=== PATIENT | female | born 1945 | race African-American/Black ===

== ENCOUNTER → 2017-12-14 | Outpatient (CLI) | payer MEDICARE | END | disposition home or self-care (01) | LOC: ECHO 08:21 | DX: I27.0 Primary pulmonary hypertension (principal); I36.1 Nonrheumatic tricuspid (valve) insufficiency; I37.1 Nonrheumatic pulmonary valve insufficiency | CPT/HCPCS: 93306 ==

== ENCOUNTER 2019-03-13 03:30 | Emergency (ER) | payer MEDICARE ==
[~2019-03-13] VITALS: Ht 154.9 cm; Wt 52.6 kg
[~2019-03-13 03:30] MED LIST: AMLO10TA8 PO; CHOL200074 PO; CITA10TA4 PO; DILT180C4 PO; DILT30TA26 PO; DILT60TA PO; DONE10TA7 PO; FLUT250D INH; GLUC-46 PO; IPRA3AMP29 NEB; MEMA28CA PO; OMEG300C PO; PRAV40TA2 PO; PRED-220 PO
[2019-03-13 04:36] LABS: BASO # 0.1 x10^3/uL (0.0-0.2); BASO % 1 % (0-3); EOS # 0.4 x10^3/uL (0.0-0.7); EOS % 9 % (0-3); HEMATOCRIT 41.8 % (36.0-47.0); HEMOGLOBIN 13.5 g/dL (12.0-15.5); LYMPH # 2.2 x10^3/uL (1.0-4.8); LYMPH % 48 % (24-48); MEAN CORPUSCULAR HEMOGLOBIN 26 pg (25-35); MEAN CORPUSCULAR HGB CONC 32 g/dL (31-37); MEAN CORPUSCULAR VOLUME 80 fL (79-100); MONO # 0.4 x10^3/uL (0.0-1.1); MONO % 10 % (0-9); NEUT # 1.5 x10^3uL (1.8-7.7); NEUT % 32 % (31-73); PLATELET COUNT 301 x10^3/uL (140-400); RED BLOOD COUNT 5.21 x10^6/uL (3.50-5.40); RED CELL DISTRIBUTION WIDTH 14.8 % (11.5-14.5); WHITE BLOOD COUNT 4.5 x10^3/uL (4.0-11.0)
--- NOTE | 2019-03-13 04:37 | PHYS DOC ---
Past Medical History Past Medical History: Anxiety, COPD, Depression, High Cholesterol Additional Past Medical Histor: ALZHEIMERS Past Surgical History: No Surgical History Additional Past Surgical Histo: UNKNOWN Alcohol Use: None Drug Use: None Adult General Chief Complaint Chief Complaint: COUGH HPI HPI Patient is a 73 year old female with history of COPD, Alzheimer's who presents with productive cough increased shortness of breath past week. Blood members report increased albuterol use. Fever chills, nausea vomiting or sweats. No leg pain and swelling. No other acute symptoms or complaints. History is limited due to patient's memory loss. Additional history per family members.[] Review of Systems Review of Systems Constitutional: Denies fever or chills [] Eyes: Denies change in visual acuity, redness, or eye pain [] HENT: Denies nasal congestion or sore throat [] Respiratory: Denies cough or shortness of breath [] Cardiovascular: No additional information not addressed in HPI [] GI: Denies abdominal pain, nausea, vomiting, bloody stools or diarrhea [] : Denies dysuria or hematuria [] Musculoskeletal: Denies back pain or joint pain [] Integument: Denies rash or skin lesions [] Neurologic: Denies headache, focal weakness or sensory changes [] Endocrine: Denies polyuria or polydipsia [] All other systems were reviewed and found to be within normal limits, except as documented in this note. Current Medications Current Medications Current Medications Medications (Trade) Dose Ordered Sig/Wilemr Start Time Stop Time Status Last Admin Dose Admin Albuterol/ Ipratropium (Duoneb) 3 ml 1X ONCE 03/13/19 05:00 03/13/19 05:01 DC 03/13/19 04:32 3 ML Methylprednisolone Sodium Succinate (SOLU-Medrol 40MG VIAL) 40 mg 1X ONCE 03/13/19 05:00 03/13/19 05:01 DC 03/13/19 04:37 40 MG Allergies Allergies Allergies Coded Allergies Type Severity Reaction Last Updated Verified Sulfa (Sulfonamide Antibiotics) Allergy Intermediate 04/02/15 Yes clarithromycin Allergy Intermediate 04/02/15 Yes gatifloxacin Allergy Intermediate 04/02/15 Yes penicillin G Allergy Intermediate 04/02/15 Yes Physical Exam Physical Exam Constitutional: Well developed, well nourished, no acute distress, non-toxic appearance. [] HENT: Normocephalic, atraumatic, bilateral external ears normal, oropharynx moist, no oral exudates, nose normal. [] Eyes: PERRLA, EOMI, conjunctiva normal, no discharge. [] Neck: Normal range of motion, no tenderness, supple, no stridor. [] Cardiovascular:Heart rate regular rhythm, no murmur [] Lungs & Thorax: Respirations labored, tachypnea, diminished breath sounds b ilaterally, retractions.[] Abdomen: Bowel sounds normal, soft, no tenderness. [] Skin: Warm, dry, no erythema, no rash. [] Back: No tenderness, no CVA tenderness. [] Extremities: No tenderness, no edema. [] Neurologic: Alert and oriented to person, normal motor function, normal sensory function, no focal deficits noted. [] Psychologic: Affect normal, judgement normal, mood normal. [] Current Patient Data Vital Signs Vital Signs Date Time Temp Pulse Resp B/P (MAP) Pulse Ox O2 Delivery O2 Flow Rate FiO2 03/13/19 04:32 99 Room Air 03/13/19 04:01 98.1 74 23 131/68 (89) 98.1 Lab Values Laboratory Tests Test 03/13/19 04:27 White Blood Count 4.5 x10^3/uL (4.0-11.0) Red Blood Count 5.21 x10^6/uL (3.50-5.40) Hemoglobin 13.5 g/dL (12.0-15.5) Hematocrit 41.8 % (36.0-47.0) Mean Corpuscular Volume 80 fL (79-100) Mean Corpuscular Hemoglobin 26 pg (25-35) Mean Corpuscular Hemoglobin Concent 32 g/dL (31-37) Red Cell Distribution Width 14.8 % (11.5-14.5) H Platelet Count 301 x10^3/uL (140-400) Neutrophils (%) (Auto) 32 % (31-73) Lymphocytes (%) (Auto) 48 % (24-48) Monocytes (%) (Auto) 10 % (0-9) H Eosinophils (%) (Auto) 9 % (0-3) H Basophils (%) (Auto) 1 % (0-3) Neutrophils # (Auto) 1.5 x10^3uL (1.8-7.7) L Lymphocytes # (Auto) 2.2 x10^3/uL (1.0-4.8) Monocytes # (Auto) 0.4 x10^3/uL (0.0-1.1) Eosinophils # (Auto) 0.4 x10^3/uL (0.0-0.7) Basophils # (Auto) 0.1 x10^3/uL (0.0-0.2) Sodium Level 139 mmol/L (136-145) Potassium Level 3.7 mmol/L (3.5-5.1) Chloride Level 100 mmol/L (98-107) Carbon Dioxide Level 29 mmol/L (21-32) Anion Gap 10 (6-14) Blood Urea Nitrogen 9 mg/dL (7-20) Creatinine 1.1 mg/dL (0.6-1.0) H Estimated GFR (Cockcroft-Gault) 58.6 BUN/Creatinine Ratio 8 (6-20) Glucose Level 91 mg/dL (70-99) Lactic Acid Level 1.1 mmol/L (0.4-2.0) Calcium Level 9.7 mg/dL (8.5-10.1) Total Bilirubin 0.6 mg/dL (0.2-1.0) Aspartate Amino Transferase (AST) 29 U/L (15-37) Alanine Aminotransferase (ALT) 25 U/L (14-59) Alkaline Phosphatase 109 U/L (46-116) FY-Auj-B-Type Natriuretic Peptide 141 pg/mL (0-449) Total Protein 7.1 g/dL (6.4-8.2) Albumin 3.3 g/dL (3.4-5.0) L Albumin/Globulin Ratio 0.9 (1.0-1.7) L Laboratory Tests 03/13/19 04:27 Laboratory Tests 03/13/19 04:27 EKG EKG [EKG: reviewed CXR: Possible atypical infection per radiology report] Radiology/Procedures Radiology/Procedures [] Course & Med Decision Making Course & Med Decision Making Pertinent Labs and Imaging studies reviewed. (See chart for details) [Acute bronchitis with COPD exacerbation, being significant. Steroids, breathing treatment. Patient afebrile normal white blood cell count. Possibly atypical infection present on chest x-ray. O2 saturation greater than 95 sent, breath sounds improved with respiratory rate ] Dragon Disclaimer Dragon Disclaimer This electronic medical record was generated, in whole or in part, using a voice recognition dictation system. Departure Departure Impression: Primary Impression: Acute exacerbation of chronic obstructive pulmonary disease (COPD) Additional Impression: Acute bronchitis Disposition: 01 HOME, SELF-CARE Admitting Physician: Other Condition: Referrals: Agustin LOPEZ MD (PCP) Patient Instructions: Acute Bronchitis, [id number], Chronic Obstructive Pulmonary Disease Exacerbation, [id number] Additional Instructions: Please take antibiotics and steroids as directed and continue ALBUTEROL treatments every 4-6 hours. Follow-up with your PCP in 3-5 days for reevaluation. Return to the ED if worse. Scripts Doxycycline Hyclate (DOXYCYCLINE HYCLATE) 100 Mg Capsule 1 CAP PO BID, #20 CAP Prov: CUAUHTEMOC TIMMONS DO 03/13/19 Prednisone (PREDNISONE) 50 Mg Tablet 1 TAB PO DAILY, #6 TAB Prov: CUAUHTEMOC TIMMONS DO 03/13/19 Problem Qualifiers CUAUHTEMOC TIMMONS DO Mar 13, 2019 04:37
[2019-03-13 04:47] LABS: CALCIUM 9.7 mg/dL (8.5-10.1); CREATININE 1.1 mg/dL (0.6-1.0); GFR 58.6; POTASSIUM 3.7 mmol/L (3.5-5.1)
[2019-03-13 04:53] LABS: ALBUMIN 3.3 g/dL (3.4-5.0); ALBUMIN/GLOBULIN RATIO 0.9 (1.0-1.7); TOTAL BILIRUBIN 0.6 mg/dL (0.2-1.0); TOTAL PROTEIN 7.1 g/dL (6.4-8.2)
[2019-03-13] MEDS ORDERED: methylPREDNISolone SOD SUCC PF 40 MG/ML VIAL. IV ONE (05:00)
[2019-03-13] MEDS ORDERED: IPRATRPIUM/ALBUTEROL 0.5/2.5MG 3 ML NEBU. NEB ONE (05:00)
--- NOTE | 2019-03-13 05:48 | RAD ---
Indication:SHORT OF AIR. TECHNIQUE:Portable AP chest X-ray COMPARISON:None FINDINGS: Heart is normal in size. Prominent bilateral interstitial opacities are seen. No pneumothorax or pleural effusion. Visualized bony thorax within normal limits. S-shaped scoliosis of thoracolumbar spine. IMPRESSION: Findings suggests atypical/viral infection. Electronically signed by: Brandon Russell DO (03/13/2019 5:45 AM) [facility]
[2019-03-13] MEDS ORDERED: DOXY100C2 PO (06:12)
[2019-03-13] MEDS ORDERED: PRED50TA PO (06:12)
[2019-03-13 06:30] VITALS: BP 131/66
== END 2019-03-13 06:32 | disposition home or self-care (01) ==
LOC: ER 03:30
DX: J44.1 Chronic obstructive pulmonary disease with (acute) exacerbation (principal); J20.9 Acute bronchitis, unspecified; J44.0 Chronic obstructive pulmonary disease with (acute) lower respiratory infection; E78.00 Pure hypercholesterolemia, unspecified; G30.9 Alzheimer's disease, unspecified; F02.80 Dementia in other diseases classified elsewhere, unspecified severity, without behavioral disturbance, psychotic disturbance, mood disturbance, and anxiety; Z88.0 Allergy status to penicillin; Z88.1 Allergy status to other antibiotic agents; Z88.2 Allergy status to sulfonamides
CPT/HCPCS: 36415; 71045; 80053; 83605; 83880; 85025; 87040; 94640; 96374; 99285; J2920; J7620

== ENCOUNTER 2019-03-20 16:28 | Inpatient (IN) | payer MEDICARE ==
[~2019-03-20] VITALS: Ht 152.4 cm; Wt 51.7 kg
[~2019-03-20 16:28] MED LIST changes: +DOXY100C2 PO; +PRED50TA PO
[2019-03-20] MEDS ORDERED: IV NORMAL SALINE 1000ML BAG 1,000 ML IV SCH ×2 (16:48→19:43)
[2019-03-20 17:12] LABS: BASO # 0.1 x10^3/uL (0.0-0.2); BASO % 1 % (0-3); EOS # 0.3 x10^3/uL (0.0-0.7); EOS % 4 % (0-3); HEMATOCRIT 41.8 % (36.0-47.0); HEMOGLOBIN 13.3 g/dL (12.0-15.5); LYMPH # 3.5 x10^3/uL (1.0-4.8); LYMPH % 47 % (24-48); MEAN CORPUSCULAR HEMOGLOBIN 26 pg (25-35); MEAN CORPUSCULAR HGB CONC 32 g/dL (31-37); MEAN CORPUSCULAR VOLUME 81 fL (79-100); MONO # 0.5 x10^3/uL (0.0-1.1); MONO % 7 % (0-9); NEUT % 41 % (31-73); PLATELET COUNT 273 x10^3/uL (140-400); RED BLOOD COUNT 5.17 x10^6/uL (3.50-5.40); RED CELL DISTRIBUTION WIDTH 14.9 % (11.5-14.5); WHITE BLOOD COUNT 7.4 x10^3/uL (4.0-11.0)
--- NOTE | 2019-03-20 17:45 | RAD ---
CT Head W/O Contrast: History: Syncope and hypotension Comparison: none Axial images were obtained without contrast. There is marked diffuse atrophy. There is no mass effect, extraaxial fluid collections or hydrocephalus. There is no gross bleed. Moderate, patchy periventricular and subcortical white matter hypoattenuation is seen. There is no focal loss of camarena-white matter distinction to suggest acute ischemia, i.e. stroke. There is complete opacification of the right maxillary sinus and near opacification of the left maxillary sinus and opacification of the ethmoid air cells and frontal sinus with some increased density in the right frontal sinus. There is opacification of the right sphenoid sinus. The mastoid air cells are clear. Impression: 1. Marked diffuse atrophy and moderate chronic white matter changes. 2. Marked pansinusitis. 3. No acute intracranial findings. RS Compliance Statement: One or more of the following individualized dose reduction techniques were utilized for this examination: 1. Automated exposure control 2. Adjustment of the mA and/or kV according to patient size 3. Use of iterative reconstruction technique Electronically signed by: Triston Beaulieu III, MD (03/20/2019 5:41 PM) [facility]
[2019-03-20 17:52] LABS: CALCIUM 8.6 mg/dL (8.5-10.1); CREATININE 1.3 mg/dL (0.6-1.0); GFR 48.3; POTASSIUM 3.5 mmol/L (3.5-5.1)
[2019-03-20 17:53] LABS: PROTHROMBIN TIME PATIENT 12.1 SEC (11.7-14.0)
[2019-03-20 17:56] LABS: D-DIMER 0.76 ug/mlFEU (0.00-0.50)
[2019-03-20 17:59] LABS: ALBUMIN 2.6 g/dL (3.4-5.0); ALBUMIN/GLOBULIN RATIO 0.8 (1.0-1.7); TOTAL BILIRUBIN 0.4 mg/dL (0.2-1.0)
--- NOTE | 2019-03-20 17:59 | PHYS DOC ---
Past Medical History Past Medical History: Anxiety, Bronchitis, COPD, Dementia, Depression, High Cholesterol, Hypertension, Other Additional Past Medical Histor: ALZHEIMERS (CAITLYN RODRIGUEZ MD) Past Surgical History: Other Additional Past Surgical Histo: UNKNOWN (CAITLYN RODRIGUEZ MD) Alcohol Use: None Drug Use: None (CAITLYN RODRIGUEZ MD) Adult General Chief Complaint Chief Complaint: SYNCOPE HPI HPI Patient is a 73 year old female who brought in by EMS because of a syncopal episode. Patient has dementia and oriented 1 and unable to give history. Patient's daughter states she was complaining of left leg pain and she tried to rub her leg but she had 1 episode of syncope without seizure activity with loss of consciousness that last about nd. Patient had blood pressure of 80s by EMS and 84 in emergency room. Patient was alert and oriented 1 and denies any problem in unable to ER. Patient's daughter states she had history of 4 other episodes of syncope for the last 3 years. Patient had recent cough and diagnose of bronchitis without fever, shortness of breath, chest pain. (CAITLYN RODRIGUEZ MD) Review of Systems Review of Systems Constitutional: Denies fever or chills [] Eyes: Denies change in visual acuity, redness, or eye pain [] HENT: Denies nasal congestion or sore throat [] Respiratory: Reports cough, denies shortness of breath [] Cardiovascular: No additional information not addressed in HPI [] GI: Denies abdominal pain, nausea, vomiting, bloody stools or diarrhea [] : Denies dysuria or hematuria [] Musculoskeletal: Denies back pain or joint pain [] Integument: Denies rash or skin lesions [] Neurologic: Denies headache, focal weakness or sensory changes [] Endocrine: Denies polyuria or polydipsia [] All other systems were reviewed and found to be within normal limits, except as documented in this note. (CAITLYN RODRIGUEZ MD) Current Medications Current Medications Current Medications Medications (Trade) Dose Ordered Sig/Wilmer Start Time Stop Time Status Last Admin Dose Admin Info (CONTRAST GIVEN -- Rx MONITORING) 1 each PRN DAILY PRN 03/20/19 18:45 03/22/19 18:44 Iohexol (Omnipaque 350 Mg/ml) 75 ml 1X ONCE 03/20/19 18:45 03/20/19 18:46 DC 03/20/19 18:58 60 ML Sodium Chloride 1,000 ml @ 75 mls/hr [id number] 03/20/19 19:43 03/21/19 07:42 (LEE ALATORRE MD) Allergies Allergies Allergies Coded Allergies Type Severity Reaction Last Updated Verified Sulfa (Sulfonamide Antibiotics) Allergy Intermediate 04/02/15 Yes clarithromycin Allergy Intermediate 04/02/15 Yes gatifloxacin Allergy Intermediate 04/02/15 Yes penicillin G Allergy Intermediate 04/02/15 Yes (LEE ALATORRE MD) Physical Exam Physical Exam Constitutional: Well nourished, no acute distress, non-toxic appearance. [] HENT: Normocephalic, atraumatic, oropharynx moist. Eyes: PERRLA, EOMI, conjunctiva normal, no discharge. [] Neck: Normal range of motion, no tenderness, supple, no stridor. [] Cardiovascular:Heart rate regular rhythm, no murmur [] Lungs & Thorax: Bilateral breath sounds clear to auscultation [] Abdomen: Bowel sounds normal, soft, no tenderness, no masses, no pulsatile masses. [] Skin: Warm, dry, no erythema, no rash. [] Back: No tenderness, no CVA tenderness. [] Extremities: No tenderness, no cyanosis, no clubbing, ROM intact, no edema. [] Neurologic: Alert and oriented X 1, normal motor function, normal sensory function, no focal deficits noted. [] Psychologic: Affect normal, judgement normal, mood normal. [] (CAITLYN RODRIGUEZ MD) Current Patient Data Vital Signs Vital Signs Date Time Temp Pulse Resp B/P (MAP) Pulse Ox O2 Delivery O2 Flow Rate FiO2 03/20/19 19:00 59 15 149/61 (90) 93 Room Air 03/20/19 16:29 97.4 97.4 (LEE ALATORRE MD) Lab Values Laboratory Tests Test 03/20/19 16:50 03/20/19 17:35 03/20/19 17:59 White Blood Count 7.4 x10^3/uL (4.0-11.0) Red Blood Count 5.17 x10^6/uL (3.50-5.40) Hemoglobin 13.3 g/dL (12.0-15.5) Hematocrit 41.8 % (36.0-47.0) Mean Corpuscular Volume 81 fL (79-100) Mean Corpuscular Hemoglobin 26 pg (25-35) Mean Corpuscular Hemoglobin Concent 32 g/dL (31-37) Red Cell Distribution Width 14.9 % (11.5-14.5) H Platelet Count 273 x10^3/uL (140-400) Neutrophils (%) (Auto) 41 % (31-73) Lymphocytes (%) (Auto) 47 % (24-48) Monocytes (%) (Auto) 7 % (0-9) Eosinophils (%) (Auto) 4 % (0-3) H Basophils (%) (Auto) 1 % (0-3) Neutrophils # (Auto) 3.0 x10^3uL (1.8-7.7) Lymphocytes # (Auto) 3.5 x10^3/uL (1.0-4.8) Monocytes # (Auto) 0.5 x10^3/uL (0.0-1.1) Eosinophils # (Auto) 0.3 x10^3/uL (0.0-0.7) Basophils # (Auto) 0.1 x10^3/uL (0.0-0.2) Prothrombin Time 12.1 SEC (11.7-14.0) Prothrombin Time INR 0.9 (0.8-1.1) D-Dimer (Kayley) 0.76 ug/mlFEU (0.00-0.50) H Sodium Level 138 mmol/L (136-145) Potassium Level 3.5 mmol/L (3.5-5.1) Chloride Level 101 mmol/L (98-107) Carbon Dioxide Level 30 mmol/L (21-32) Anion Gap 7 (6-14) Blood Urea Nitrogen 13 mg/dL (7-20) Creatinine 1.3 mg/dL (0.6-1.0) H Estimated GFR (Cockcroft-Gault) 48.3 BUN/Creatinine Ratio 10 (6-20) Glucose Level 85 mg/dL (70-99) Lactic Acid Level 1.5 mmol/L (0.4-2.0) Calcium Level 8.6 mg/dL (8.5-10.1) Magnesium Level 2.0 mg/dL (1.8-2.4) Total Bilirubin 0.4 mg/dL (0.2-1.0) Aspartate Amino Transferase (AST) 23 U/L (15-37) Alanine Aminotransferase (ALT) 34 U/L (14-59) Alkaline Phosphatase 112 U/L (46-116) Troponin I Quantitative < 0.017 ng/mL (0.000-0.055) VI-Ujh-F-Type Natriuretic Peptide 134 pg/mL (0-449) Total Protein 6.0 g/dL (6.4-8.2) L Albumin 2.6 g/dL (3.4-5.0) L Albumin/Globulin Ratio 0.8 (1.0-1.7) L Lipase 274 U/L (73-393) Urine Collection Type Void Urine Color Yellow Urine Clarity Clear Urine pH 6.0 Urine Specific [place] 1.010 Urine Protein Negative mg/dL (NEG-TRACE) Urine Glucose (UA) Negative mg/dL (NEG) Urine Ketones (Stick) Negative mg/dL (NEG) Urine Blood Negative (NEG) Urine Nitrite Negative (NEG) Urine Bilirubin Negative (NEG) Urine Urobilinogen Dipstick 0.2 mg/dL (0.2 mg/dL) Urine Leukocyte Esterase Negative (NEG) Urine RBC 0 /HPF (0-2) Urine WBC 0 /HPF (0-4) Urine Squamous Epithelial Cells Occ /LPF Urine Bacteria 0 /HPF (0-FEW) Laboratory Tests 03/20/19 16:50 Laboratory Tests 03/20/19 17:35 (LEE ALATORRE MD) EKG EKG EKG interpreted by me. EKG at 1647 showed normal sinus rhythm at rate of 61, normal TX intervals, no acute ST and T-wave abnormalities. (CAITLYN RODRIGUEZ MD) Radiology/Procedures Radiology/Procedures [facility] [address] [place] [address] IMAGING REPORT Signed PATIENT: LETICIA MARTINI ACCOUNT: [id number] : 1945 LOCATION: ER AGE: 73 SEX: F EXAM STATUS: PRE ER ORD. PHYSICIAN: CAITLYN RODRIGUEZ MD REASON: syncope and hypotension PROCEDURE: CT HEAD WO CONTRAST CT Head W/O Contrast: History: Syncope and hypotension Comparison: none Axial images were obtained without contrast. There is marked diffuse atrophy. There is no mass effect, extraaxial fluid collections or hydrocephalus. There is no gross bleed. Moderate, patchy periventricular and subcortical white matter hypoattenuation is seen. There is no focal loss of camarena-white matter distinction to suggest acute ischemia, i.e. stroke. There is complete opacification of the right maxillary sinus and near opacification of the left maxillary sinus and opacification of the ethmoid air cells and frontal sinus with some increased density in the right frontal sinus. There is opacification of the right sphenoid sinus. The mastoid air cells are clear. Impression: 1. Marked diffuse atrophy and moderate chronic white matter changes. 2. Marked pansinusitis. 3. No acute intracranial findings. RS Compliance Statement: One or more of the following individualized dose reduction techniques were utilized for this examination: 1. Automated exposure control 2. Adjustment of the mA and/or kV according to patient size 3. Use of iterative reconstruction technique Electronically signed by: Gretel Kennedy III, MD (03/20/2019 5:41 PM) [facility] DICTATED and SIGNED BY: GRETEL KENNEDY III, MD DATE: 03/20/191740 (CAITLYN RODRIGUEZ MD) Course & Med Decision Making Course & Med Decision Making Pertinent Labs and Imaging studies pending. Evaluation of patient in ER showed 73-year-old female patient brought in because of recurrent syncope. Patient had low blood pressure at home and blood pressure of 84 in ER and treated with 1 L of normal saline with improvement of blood pressure 91. Sign out given to at 1800 for further evaluation and final dispo sition. Discussed current findings and plan with patient and family, who acknowledge understanding and agreement. [] (CAITLYN RODRIGUEZ MD) Course & Med Decision Making S/O FROM DR. RODRIGUEZ, SYNCOPE, HYPOTENSION. APPARENTLY HAD SYNCOPE AFTER GETTING CALF WORKED ON. CT PE PROTOCOL NEG U/A NEG PT FEELING BETTER BP UP TO 120'S THEN DOWN TO MID 90'S NO OBVIOUS SOURCE OF SEPSIS IDENTIFIED. D/W FALCON, ADMIT OVERNIGHT FOR OBSERATION. FAMILY CONCNERED ABOUT PROLONGED SYNCOPE AND SOME WEAKNESS WELL. (LEE ALATORRE MD) Dragon Disclaimer Dragon Disclaimer This electronic medical record was generated, in whole or in part, using a voice recognition dictation system. (CAITLYN RODRIGUEZ MD) Departure Departure Impression: Primary Impression: Recurrent syncope Disposition: ADMITTED INPATIENT Admitting Physician: Hubert Falcon (LEE ALATORRE MD) Condition: STABLE Referrals: Agustin LOPEZ MD (PCP) CAITLYN RODRIGUEZ MD March 20, 2019 17:59 LEE ALATORRE MD March 20, 2019 20:12
[2019-03-20 18:22] LABS: BILIRUBIN,URINE NEGATIVE (NEG); CLARITY,URINE CLEAR; COLOR,URINE YELLOW; NITRITE,URINE NEGATIVE (NEG); PROTEIN,URINE NEGATIVE (NEG-TRACE); UROBILINOGEN,URINE 0.2 mg/dL (0.2 mg/dL)
[2019-03-20 18:34] LABS: BACTERIA,URINE 0 /HPF (0-FEW); RBC,URINE 0 /HPF (0-2); SQUAMOUS EPITHELIAL CELL,UR OCC /LPF; WBC,URINE 0 /HPF (0-4)
[2019-03-20] MEDS ORDERED: IOHEXOL 350 MG/ML 100 ML VIAL. IV ONE (18:45)
[2019-03-20] MEDS ORDERED: CONTRAST GIVEN. MC PRN (18:45)
--- NOTE | 2019-03-20 19:16 | RAD ---
CTA Chest with contrast: Clinical History: Shortness of breath. Axial helical images of the chest were obtained after the administration of 100 cc of IV Isovue-370 and timed appropriately for a pulmonary arterial study. Conventional axial reconstruction was performed in addition to coronal, sagittal and bilateral oblique MIP (maximum intensity projection). This study was ordered to detect possible pulmonary embolism. There are no filling defects to suggest pulmonary embolism. The lungs and pleural margins are clear. There is no mediastinal or hilar lymphadenopathy. The thoracic aorta appears normal. Impression: 1. No evidence of pulmonary embolism. 2. No significant findings. PQRS Compliance Statement: One or more of the following individualized dose reduction techniques were utilized for this examination: 1. Automated exposure control 2. Adjustment of the mA and/or kV according to patient size 3. Use of iterative reconstruction technique Electronically signed by: Triston Beaulieu III, MD (03/20/2019 7:13 PM) [facility]
[2019-03-20 20:45] VITALS: BP 136/72
[2019-03-20 23:58] VITALS: BP 144/64
[2019-03-21 03:59] VITALS: BP 132/70
[2019-03-21 04:41] VITALS: BP 132/70
[2019-03-21] MEDS ORDERED: MEMA28CA5 PO (04:58)
[2019-03-21] MEDS ORDERED: FLUT16SP NS (04:58)
[2019-03-21] MEDS ORDERED: DEXT1CAP PO (04:58)
[2019-03-21] MEDS ORDERED: AMLO5TAB10 PO (04:58)
--- NOTE | 2019-03-21 06:36 | EKG ---
[facility] [address] [place] [address] Test Date: 2019-03-20 Test Time: 16:47:06 Pat Name: LETICIA MARTINI Department: Room: 4 1 Gender: F Review Trainer: : 1945 Requested By: CAITLYN RODRIGUEZ Order Number: [id number] Reading MD: Tio Peters Measurements Intervals [place] Rate: 61 P: 41 CO: 128 QRS: -12 QRSD: 82 T: 58 QT: 432 QTc: 436 Interpretive Statements SINUS RHYTHM NONSPECIFIC ST-T WAVE CHANGES. Electronically Signed On 03-23-2019 16:03:50 CDT by Tio Peters
[2019-03-21 07:20] VITALS: BP 167/72
--- NOTE | 2019-03-21 08:32 | RAD ---
PORTABLE CHEST 1V Clinical indications: Syncope and hypotension. COMPARISON: November 11, 2016. March 13, 2019. Findings: Chronic interstitial lung changes seen bilaterally which are stable. No acute lung infiltrate or pleural effusion or pulmonary edema or lung mass or pneumothorax is seen. The heart size, pulmonary vasculature, mediastinum and both timo are stable. Impression: No acute radiographic abnormality is seen. Electronically signed by: Jacoby Varner MD (03/21/2019 8:29 AM) [place] [id number]
[2019-03-21] MEDS ORDERED: ALBUTEROL SULFATE 2.5 MG/3 ML NEBU. NEB PRN (11:00)
[2019-03-21] MEDS ORDERED: MEMANTINE 10 MG TABLET. PO SCH (11:00)
[2019-03-21] MEDS ORDERED: DONEPEZIL HCL 10 MG TABLET. PO SCH (11:00)
[2019-03-21] MEDS ORDERED: CITALOPRAM 10 MG TABLET. PO SCH (11:00)
[2019-03-21] MEDS ORDERED: FLUTICASONE 50MCG/NASAL SPRAY 16GM BOTTLE. NS SCH (11:00)
[2019-03-21 11:26] VITALS: BP 125/56
--- NOTE | 2019-03-21 14:27 | NUR ---
SW following pt for anticipated dc needs. Chart reviewed. Pt lives at home with family. PT/OT pending. SW will await for PT/OT recommendations to assess skilled needs.
[2019-03-21 15:20] VITALS: BP 137/66
[2019-03-21] MEDS ORDERED: MEMA10TA PO (17:01)
--- NOTE | 2019-03-21 17:15 | NUR ---
Discharge Note: LETICIA MARTINI O[facility] Discharge instructions and discharge home medications reviewed with Spouse and a copy given. All questions have been answered and understanding verbalized. The following instructions and handouts were given: information about discharge medications, appointments, syncope, and hypotension. Discontinued lines and drains: IV line in left forearm removed, catheter tip intact. Patient discharged to home with self care with family members, wheelchair used for mobility to discharge vehicle.
--- NOTE | 2019-03-21 17:45 | PDOC3 ---
DATE OF ADMISSION Date of Admission 03/20/19 DATE OF DISCHARGE Discharge Date 03/21/19 PROBLEM LIST Problems: (1) Syncope CONSULTS Consults none PROCEDURES Procedures none LABS Labs Laboratory Tests Test 03/20/19 17:35 03/20/19 17:59 Prothrombin Time 12.1 SEC (11.7-14.0) Prothromb Time International Ratio 0.9 (0.8-1.1) D-Dimer (Kayley) 0.76 ug/mlFEU (0.00-0.50) Sodium Level 138 mmol/L (136-145) Potassium Level 3.5 mmol/L (3.5-5.1) Chloride Level 101 mmol/L (98-107) Carbon Dioxide Level 30 mmol/L (21-32) Anion Gap 7 (6-14) Blood Urea Nitrogen 13 mg/dL (7-20) Creatinine 1.3 mg/dL (0.6-1.0) Estimated GFR (Cockcroft-Gault) 48.3 BUN/Creatinine Ratio 10 (6-20) Glucose Level 85 mg/dL (70-99) Lactic Acid Level 1.5 mmol/L (0.4-2.0) Calcium Level 8.6 mg/dL (8.5-10.1) Magnesium Level 2.0 mg/dL (1.8-2.4) Total Bilirubin 0.4 mg/dL (0.2-1.0) Aspartate Amino Transf (AST/SGOT) 23 U/L (15-37) Alanine Aminotransferase (ALT/SGPT) 34 U/L (14-59) Alkaline Phosphatase 112 U/L (46-116) Troponin I Quantitative < 0.017 ng/mL (0.000-0.055) JB-Ium-F-Type Natriuretic Peptide 134 pg/mL (0-449) Total Protein 6.0 g/dL (6.4-8.2) Albumin 2.6 g/dL (3.4-5.0) Albumin/Globulin Ratio 0.8 (1.0-1.7) Lipase 274 U/L (73-393) Urine Collection Type Void Urine Color Yellow Urine Clarity Clear Urine pH 6.0 Urine Specific [place] 1.010 Urine Protein Negative mg/dL (NEG-TRACE) Urine Glucose (UA) Negative mg/dL (NEG) Urine Ketones (Stick) Negative mg/dL (NEG) Urine Blood Negative (NEG) Urine Nitrite Negative (NEG) Urine Bilirubin Negative (NEG) Urine Urobilinogen Dipstick 0.2 mg/dL (0.2 mg/dL) Urine Leukocyte Esterase Negative (NEG) Urine RBC 0 /HPF (0-2) Urine WBC 0 /HPF (0-4) Urine Squamous Epithelial Cells Occ /LPF Urine Bacteria 0 /HPF (0-FEW) MEDICATIONS Medications Medications reviewed and reconciled for discharge. 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 REVIEW OF SYSTEMS ROS A 14 point ROS was completed with the following noted as positive: recent bronchitis treated with 5 day prednisone burst and 10 days of doxycycline, still has a cough Other systems reviewed and negative. PHYSICAL EXAM Subjective She complained of an acute left calf cramp and her was massaging her leg with a salve when she suddenly blacked out, no seizure activity, she was out about 30 seconds to a minute, she was sitting on the edge of the bed when it occurred so she fell back onto the bed. She had no head trauma, no GI distress and no post-ictal symptoms Objective alert, laughs inappropriately up to bathroom with minimal assist Heart at times bradycardic but asymptomatic loose cough without wheezing sinus congestion neck supple abdomen soft and non tender extremities without edema or cyanosis feet warm, skin turgor normal MS exam baseline Neuro consistent with Dementia but without focal findings, no tearful responses displayed Vital Signs Vital Signs Date Time Temp Pulse Resp B/P (MAP) Pulse Ox O2 Delivery O2 Flow Rate FiO2 03/21/19 15:20 98.2 63 18 137/66 (89) 96 Room Air 98.2 Assessment syncope - vasovagal, she has had some bradycardia on monitor while hospitalized but not symptomatic HTN overtreated with hypotension - amlodipine held and discontinued sinusitis per imaging - continue doxycycline another 10 days for 20 total days bronchitis - resolving COPD - continue Duoneb and flovent AR - continue flonase Dementia with pseudobulbar affect - continue aricept and namenda and nuedexta [facility] NOTE [facility] Note She was monitored overnight without significant arrhythmia noted, her BP became normal after a fluid bolus and maintained, no sign of a blader infection, CT head unremarkable for acute findings other than sinusitis, CTA of chest negative for PE despite her d-dimer being elevated. She was able to stand from toilet and walk to bed and get into bed and push up to proper position in bed with standby assist FOLLOW UP F/U 1 week DISPOSITION Dispo home with Problem Qualifiers (1) Syncope: Syncope type: vasovagal syncope Qualified Codes: R55 - Syncope and collapse Agustin LOPEZ MD March 21, 2019 17:45
[2019-03-21] MEDS ORDERED: BUDESONIDE 0.5 MG/2 ML NEBU. NEB SCH (20:00)
[2019-03-21] MEDS ORDERED: DOXYCYCLINE HYCLATE 100 MG TABLET PO SCH (21:00)
[2019-03-21] MEDS ORDERED: LACTOBACILLUS RHAMNOSUS GG 1 CAPSULE. PO SCH (21:00)
[2019-03-21] MEDS ORDERED: ATORVASTATIN CALCIUM 10 MG TABLET. PO SCH (21:00)
[2019-03-21] MEDS ORDERED: CHOLECALCIFEROL (VITAMIN D3) 1,000 UNIT TABLET PO SCH (21:00)
[2019-03-22] MEDS ORDERED: QUINIDINE PO SCH (09:00)
[2019-03-22] MEDS ORDERED: DEXTROMETHORPHAN HBR PO SCH (09:00)
== END 2019-03-21 17:15 | disposition home or self-care (01) | DRG 312 ==
LOC: ER 16:28 → 6 SOUTH 19:43
PROVIDERS: ADMIT Family Medicine; ATTEND Family Medicine
DX: R55 Syncope and collapse (principal); I95.2 Hypotension due to drugs; J44.9 Chronic obstructive pulmonary disease, unspecified; I10 Essential (primary) hypertension; F02.80 Dementia in other diseases classified elsewhere, unspecified severity, without behavioral disturbance, psychotic disturbance, mood disturbance, and anxiety; E78.00 Pure hypercholesterolemia, unspecified; F41.9 Anxiety disorder, unspecified; F32.9 Major depressive disorder, single episode, unspecified; G30.9 Alzheimer's disease, unspecified; F48.2 Pseudobulbar affect; T46.1X5A Adverse effect of calcium-channel blockers, initial encounter
CPT/HCPCS: 36415; 70450; 71045; 71275; 80053; 81001; 83605; 83690; 83735; 83880; 84484; 85025; 85379; 85610; 87040; 93005; J7030; Q9967; 99285-25

== ENCOUNTER 2019-09-15 13:29 | Inpatient (IN) | payer MEDICARE ==
[~2019-09-15] VITALS: Ht 154.9 cm; Wt 50.1 kg
[~2019-09-15 13:29] MED LIST changes: +AMLO5TAB10 PO; +DEXT1CAP PO; +FLUT16SP NS; +MEMA10TA PO; +MEMA28CA5 PO
[2019-09-15] MEDS ORDERED: IPRATRPIUM/ALBUTEROL 0.5/2.5MG 3 ML NEBU. NEB ONE (13:45)
--- NOTE | 2019-09-15 14:09 | RAD ---
CHEST AP ONLY History: Shortness of breath Comparison: March 20, 2019. Findings: No consolidation or pleural effusion. Normal heart size. Prior granulomatous disease. Impression: 1. No acute cardiopulmonary process. Electronically signed by: Bobby Page DO (09/15/2019 2:06 PM) [facility]
[2019-09-15 15:00] LABS: BASO % 1 % (0-3); EOS % 1 % (0-3); HEMATOCRIT 43.2 % (36.0-47.0); HEMOGLOBIN 13.8 g/dL (12.0-15.5); LYMPH # 1.2 x10^3/uL (1.0-4.8); LYMPH % 26 % (24-48); MEAN CORPUSCULAR HEMOGLOBIN 25 pg (25-35); MEAN CORPUSCULAR HGB CONC 32 g/dL (31-37); MEAN CORPUSCULAR VOLUME 79 fL (79-100); MONO # 0.6 x10^3/uL (0.0-1.1); MONO % 13 % (0-9); NEUT # 2.7 x10^3/uL (1.8-7.7); NEUT % 60 % (31-73); PLATELET COUNT 181 x10^3/uL (140-400); RED BLOOD COUNT 5.45 x10^6/uL (3.50-5.40); RED CELL DISTRIBUTION WIDTH 15.7 % (11.5-14.5); WHITE BLOOD COUNT 4.6 x10^3/uL (4.0-11.0)
[2019-09-15 15:16] LABS: CALCIUM 8.9 mg/dL (8.5-10.1); CREATININE 1.1 mg/dL (0.6-1.0); GFR 58.4; POTASSIUM 3.8 mmol/L (3.5-5.1)
[2019-09-15 15:22] LABS: ALBUMIN/GLOBULIN RATIO 0.7 (1.0-1.7); TOTAL BILIRUBIN 0.4 mg/dL (0.2-1.0); TOTAL PROTEIN 7.2 g/dL (6.4-8.2)
[2019-09-15] MEDS ORDERED: IV NORMAL SALINE 1000ML BAG 1,000 ML IV ONE (15:30)
--- NOTE | 2019-09-15 15:44 | PHYS DOC ---
Past Medical History Past Medical History: Anxiety, Bronchitis, COPD, Dementia, Depression, High Cholesterol, Hypertension, Other Additional Past Medical Histor: ALZHEIMERS Past Surgical History: Other Additional Past Surgical Histo: UNKNOWN Alcohol Use: None Drug Use: None Adult General Chief Complaint Chief Complaint: SYNCOPE HPI HPI Patient is a 74 year old female with history of dementia and, COPD who presents with witnessed syncopal episode. She was sitting in her bed when she was one episode with 3-4 minute loss of consciousness. During this time the patient was unresponsive. No seizure activity was witnessed. There were no obvious warnings prior to the episode and the patient has since returned to baseline mental status. Patient's spouse states she has had 2-3 other episodes in the past 2 years for which she is been evaluated in the hospital. No cause was identified. Patient has had increased productive cough with difficulty sleeping last night. No medications taken. Patient does not smoke or over 40 years. Strews limited due to the presence of dementia.[] Review of Systems Review of Systems Review of symptoms as pre HPI. All other review symptoms are negative. All other systems were reviewed and found to be within normal limits, except as documented in this note. Current Medications Current Medications Current Medications Medications (Trade) Dose Ordered Sig/Wilmer Start Time Stop Time Status Last Admin Dose Admin Albuterol/ Ipratropium (Duoneb) 3 ml 1X ONCE 09/15/19 13:45 09/15/19 13:46 DC 09/15/19 13:44 3 ML Allergies Allergies Allergies Coded Allergies Type Severity Reaction Last Updated Verified Sulfa (Sulfonamide Antibiotics) Allergy Intermediate 04/02/15 Yes clarithromycin Allergy Intermediate 04/02/15 Yes gatifloxacin Allergy Intermediate 04/02/15 Yes penicillin G Allergy Intermediate 04/02/15 Yes Physical Exam Physical Exam Constitutional: Well developed, well nourished, no acute distress, non-toxic appearance. [] HENT: Normocephalic, atraumatic, bilateral external ears normal, oropharynx moist, nose normal. [] Eyes: PERRLA, EOMI, conjunctiva normal. [] Neck: Normal range of motion, no tenderness. [] Cardiovascular:Heart rate regular rhythm, no murmur. [] Lungs & Thorax: Respirations labored, coarse diminished breath sounds bilaterally.[] Abdomen: Bowel sounds normal, soft, no tenderness. [] Skin: Warm, dry. [] Back: No tenderness. [] Extremities: No tenderness. [] Neurologic: Alert and oriented X 3, normal motor function, normal sensory function, no focal deficits noted. [] Psychologic: Affect normal, judgement normal, mood normal. [] Current Patient Data Vital Signs Vital Signs Date Time Temp Pulse Resp B/P (MAP) Pulse Ox O2 Delivery O2 Flow Rate FiO2 09/15/19 13:46 91 Room Air 09/15/19 13:30 98.5 96 18 149/108 (122) 98.5 EKG EKG [EKG: T-wave inversions noted.] Radiology/Procedures Radiology/Procedures [Chest x-ray: No acute cardiopulmonary disease per radiology report] Course & Med Decision Making Course & Med Decision Making Pertinent Labs and Imaging studies reviewed. (See chart for details) [Vital signs stable. No arrhythmias present on EKG or monitor. Labs reviewed. Breathing treatment and steroids given for treatment of COPD. Will admit to the hospital service for further evaluation and treatment.] Dragon Disclaimer Dragon Disclaimer This electronic medical record was generated, in whole or in part, using a voice recognition dictation system. Departure Departure Impression: Primary Impression: Acute exacerbation of chronic obstructive pulmonary disease (COPD) Additional Impression: Syncope Disposition: ADMITTED INPATIENT Condition: STABLE Referrals: Agustin LOPEZ MD (PCP) Problem Qualifiers CUAUHTEMOC TIMMONS DO Sep 15, 2019 15:44
[2019-09-15] MEDS ORDERED: methylPREDNISolone SOD SUCC PF 40 MG/ML VIAL. ONE (15:52)
[2019-09-15] MEDS ORDERED: IPRATRPIUM/ALBUTEROL 0.5/2.5MG 3 ML NEBU. NEB SCH (16:00)
[2019-09-15] MEDS ORDERED: methylPREDNISolone SOD SUCC PF 125 MG/2 ML VIAL. IV ONE (16:00)
[2019-09-15 16:15] VITALS: BP 172/76
[2019-09-15 16:20] VITALS: BP 180/81
[2019-09-15 16:25] VITALS: BP 128/85
--- NOTE | 2019-09-15 16:28 | PDOC2 ---
GRAHAM ISAACS PARIMUTUEL CLERK 09/15/19 1628: CARDIAC CONSULT DATE OF CONSULT Date of Consult DATE: 09/15/19 TIME: 16:17 REASON FOR CONSULT Reason for Consult: T wave inversions, syncope REFERRING PHYSICIAN Referring Physician: Tima SOURCE Source: Chart review, Patient HISTORY OF PRESENT ILLNESS HISTORY OF PRESENT ILLNESS This is a 74 yo female admitted for noted passing out. This lasted about 3-4 minutes of lost of consciousness. In ED he has been having significant coughing. She does have hx of Dementia. Her EKG was also noted to be abnormal. She is known for vasovagal episodes in the past. With her syncope she was noted to be warm and there was no associated chest pain, SOA, palpitations prior to her losing consciousness. No injury noted. There was no seizure episodes. No focal neuro symptoms described by her son. Her cough started developing about 3 days ago. She has not had any falls or injury in the last month. It is unclear what her BP range has been at home but has been labile so far as inpt. Also her hydration adequacy is questionable and her son could not keep track. PAST MEDICAL HISTORY Past Medical History Cardiovascular: HTN, HLP, pulmonary HTN, carotid artery disease Pulmonary: Asthma, COPD CENTRAL NERVOUS SYSTEM: Dementia, vasovagal syncope GI: No pertinent hx Heme/Onc: No pertinent hx Hepatobiliary: No pertinent hx Psych: Depression Rheumatologic: No pertinent hx Infectious disease: No pertinent hx ENT: No pertinent hx Renal/: No pertinent hx Endocrine: No pertinent hx Dermatology: No pertinent hx PAST SURGICAL HISTORY Past Surgical History Tubal Ligation, Hysterectomy FAMILY HISTORY Family History noncontributory SOCIAL HISTORY Smoke: Quit ALCOHOL: none Drugs: None Lives: with Family CURRENT MEDICATIONS CURRENT MEDICATIONS Current Medications Medications (Trade) Dose Ordered Sig/Wilmer Route PRN Reason Start Time Stop Time Status Last Admin Dose Admin Albuterol/ Ipratropium (Duoneb) 3 ml 1X ONCE NEB 09/15/19 13:45 09/15/19 13:46 DC 09/15/19 13:44 Sodium Chloride 1,000 ml @ 1,000 mls/hr 1X ONCE IV 09/15/19 15:30 09/15/19 16:29 09/15/19 15:45 Methylprednisolone Sodium Succinate (SOLU-Medrol 125MG VIAL) 62.5 mg 1X ONCE IV 09/15/19 16:00 09/15/19 16:01 DC 09/15/19 15:54 ALLERGIES ALLERGIES: Coded Allergies: Sulfa (Sulfonamide Antibiotics) (Verified Allergy, Intermediate, 04/02/15) clarithromycin (Verified Allergy, Intermediate, 04/02/15) gatifloxacin (Verified Allergy, Intermediate, 04/02/15) penicillin G (Verified Allergy, Intermediate, 04/02/15) ROS Review of System 14 point ROS evaluated with pertinent positives noted per HPI PHYSICAL EXAM General: Alert, Oriented X3, Cooperative, No acute distress HEENT: Atraumatic, Mucous membr. moist/pink Lungs: Clear to auscultation, Normal air movement Heart: Regular rate (SR), Normal S1, Normal S2, Other (2/6 systolic murmur to LLS border) Abdomen: Soft, No tenderness Extremities: No cyanosis, No edema Skin: No breakdown, No significant lesion Neuro: Normal speech, Sensation intact Psych/Mental Status: Mental status NL, Mood NL MUSCULOSKELETAL: Osteoarthritic changes both hands VITALS/I&O VITALS/I&O: Vital Signs Date Time Temp Pulse Resp B/P (MAP) Pulse Ox O2 Delivery O2 Flow Rate FiO2 09/15/19 13:46 91 Room Air 09/15/19 13:30 98.5 96 18 149/108 (122) 98.5 LABS Lab: Laboratory Tests Test 09/15/19 14:50 White Blood Count 4.6 x10^3/uL (4.0-11.0) Red Blood Count 5.45 x10^6/uL (3.50-5.40) H Hemoglobin 13.8 g/dL (12.0-15.5) Hematocrit 43.2 % (36.0-47.0) Mean Corpuscular Volume 79 fL (79-100) Mean Corpuscular Hemoglobin 25 pg (25-35) Mean Corpuscular Hemoglobin Concent 32 g/dL (31-37) Red Cell Distribution Width 15.7 % (11.5-14.5) H Platelet Count 181 x10^3/uL (140-400) Neutrophils (%) (Auto) 60 % (31-73) Lymphocytes (%) (Auto) 26 % (24-48) Monocytes (%) (Auto) 13 % (0-9) H Eosinophils (%) (Auto) 1 % (0-3) Basophils (%) (Auto) 1 % (0-3) Neutrophils # (Auto) 2.7 x10^3/uL (1.8-7.7) Lymphocytes # (Auto) 1.2 x10^3/uL (1.0-4.8) Monocytes # (Auto) 0.6 x10^3/uL (0.0-1.1) Eosinophils # (Auto) 0.0 x10^3/uL (0.0-0.7) Basophils # (Auto) 0.0 x10^3/uL (0.0-0.2) Sodium Level 142 mmol/L (136-145) Potassium Level 3.8 mmol/L (3.5-5.1) Chloride Level 104 mmol/L (98-107) Carbon Dioxide Level 30 mmol/L (21-32) Anion Gap 8 (6-14) Blood Urea Nitrogen 11 mg/dL (7-20) Creatinine 1.1 mg/dL (0.6-1.0) H Estimated GFR (Cockcroft-Gault) 58.4 BUN/Creatinine Ratio 10 (6-20) Glucose Level 100 mg/dL (70-99) H Lactic Acid Level 2.3 mmol/L (0.4-2.0) H Calcium Level 8.9 mg/dL (8.5-10.1) Total Bilirubin 0.4 mg/dL (0.2-1.0) Aspartate Amino Transferase (AST) 28 U/L (15-37) Alanine Aminotransferase (ALT) 15 U/L (14-59) Alkaline Phosphatase 104 U/L (46-116) Troponin I Quantitative < 0.017 ng/mL (0.000-0.055) OM-Qhn-N-Type Natriuretic Peptide 510 pg/mL (0-449) H Total Protein 7.2 g/dL (6.4-8.2) Albumin 3.0 g/dL (3.4-5.0) L Albumin/Globulin Ratio 0.7 (1.0-1.7) L Laboratory Tests 09/15/19 14:50 Laboratory Tests 09/15/19 14:50 ECHOCARDIOGRAM ECHOCARDIOGRAM <Conclusion> The left ventricle systolic function is normal. The ejection fraction is estimated at 70%. There is normal LV segmental wall motion. Transmitral Doppler flow pattern is Grade I-abnormal relaxation pattern. Trace mitral regurgitation. Mild tricuspid regurgitation. Mild pulmonary hypertension. PAP 38 mm Hg. There is no evidence of significant pericardial effusion. DATE: 12/14/17 1432 ASSESSMENT/PLAN ASSESSMENT/PLAN 1. AECOPD 2. Syncope: suspect vasovagal and does have hx of this. Possibly cough induced 3. Abnormal EKG: likely LV strain from high BP. no CP, no SOA 4. Alzheimers dementia 5. HTN: labile episodes, no noted regimen per med review 6. HLP Recommendations 1. TTE, lipids. 2. orthostatic readings 3. Monitor rhythm 4. Continue home BP regimen. 5. Start on low dose norvasc. JILLIAN GARCIA MD 09/15/192: CARDIAC CONSULT ASSESSMENT/PLAN ASSESSMENT/PLAN Pt. seen and examined. Agree with above AIRFIELD MANAGER note. 74 y.o woman pleasantly demented. Discussed case with family. She has no pain. EKG is non-specific. Will treat BP and continue medical therapy Plan for conservative mgmt unless she has any clinical status changes. Thanks GRAHAM ISAACS APRN Sep 15, 2019 16:28 JILLIAN GARCIA MD Sep 15, 2019 22:02
[2019-09-15] MEDS ORDERED: FLU VAX QS 2019-20 (36MOS+)/PF 0.5 ML SYRINGE. VAX IM ONE (17:15)
[2019-09-15] MEDS ORDERED: hydrALAZINE 20 MG/ML VIAL. IVP PRN (17:30)
[2019-09-15] MEDS ORDERED: ALBUTEROL SULFATE 2.5 MG/3 ML NEBU. NEB PRN (17:45)
--- NOTE | 2019-09-15 18:07 | HP ---
ADMIT DATE: 09/15/2019 CHIEF COMPLAINT: Shortness of breath and syncope. HISTORY OF PRESENT ILLNESS: The patient is a pleasant 74-year-old female who has COPD. She presented with syncopal episode, lasted about 4 minutes. She has got a productive cough. She does have a history of dementia as well. I discussed the case with ER physician. We are going to admit the patient and consult Cardiology and Neurology. PAST MEDICAL HISTORY: Dementia, COPD, previous tobacco abuse, depression, hyperlipidemia, hypertension, anxiety. ALLERGIES: SULFA, CLARITHROMYCIN, PENICILLIN, GATIFLOXACIN. FAMILY HISTORY: Coronary artery disease. SOCIAL HISTORY: She quit smoking, no drinking or drugs. She is . Her is present. MEDICATIONS: Reviewed, please refer to the MRAD. REVIEW OF SYSTEMS: Unable to obtain. The patient is too confused. PHYSICAL EXAMINATION: PHYSICAL EXAMINATION: VITALS: Within normal limits and are stable. GENERAL: She is quite weak. HEENT: Head is normocephalic, atraumatic, pupils were equally round and reactive to light and accommodation. NECK: Supple, no JVD, no thyromegaly was noted. LUNGS: She has decreased breath sounds with productive cough. HEART: RRR, S1, S2 present. Peripheral pulses intact, no obvious murmurs were noted. ABDOMEN: Soft, nontender. Positive bowel sounds no organomegaly, normal bowel sounds. EXTREMITIES: She has trace edema. NEUROLOGIC: Normal speech, normal tone. A & O x3, moves all extremities, no obvious focal deficits. PSYCHIATRIC: She appears depressed. SKIN: She has got frail, thin skin. VASCULAR: Good capillary refill, neurovascular bundle appears to be intact. LABORATORY DATA: White count 4, hemoglobin 13.8, platelets 181. Electrolytes are normal. Glucose is 100. Troponin is 0. BNP 510. Chest x-ray, negative. ASSESSMENT AND PLAN: Syncope and probable chronic obstructive pulmonary disease exacerbation. The patient is being admitted. We will consult Dr. Hlal and Dr. Rocha. Home meds, DuoNebs, we will consider steroids. Gentle IV hydration, PT, OT, frequent labs. DVT prophylaxis. Full code. ANKIT LUTHER DO DR: MARQUIS/sweetie JOB#: [id number] / [id number]
[2019-09-15 19:00] VITALS: BP 162/65
[2019-09-15] MEDS: BUDESONIDE 0.5 MG/2 ML NEBU. NEB SCH (19:40)
[2019-09-15] MEDS: IPRATRPIUM/ALBUTEROL 0.5/2.5MG 3 ML NEBU. NEB SCH (19:40)
[2019-09-15] MEDS: methylPREDNISolone SOD SUCC PF 40 MG/ML VIAL. IV SCH (20:57)
[2019-09-15] MEDS: MEMANTINE 10 MG TABLET. PO SCH (20:58)
[2019-09-15] MEDS: ATORVASTATIN CALCIUM 10 MG TABLET. PO SCH (20:58)
[2019-09-15] MEDS: CHOLECALCIFEROL (VITAMIN D3) 1,000 UNIT TABLET PO SCH (20:58)
[2019-09-15] MEDS ORDERED: methylPREDNISolone SOD SUCC PF 125 MG/2 ML VIAL. IV SCH (22:00)
[2019-09-15 23:00] VITALS: BP 144/67
[2019-09-16] VITALS (10 sets, daily range): BP systolic 93–198; BP diastolic 41–85
[2019-09-16 04:36] LABS: BASO % 1 % (0-3); EOS % 0 % (0-3); HEMATOCRIT 41.8 % (36.0-47.0); HEMOGLOBIN 13.2 g/dL (12.0-15.5); LYMPH # 0.8 x10^3/uL (1.0-4.8); LYMPH % 23 % (24-48); MEAN CORPUSCULAR HEMOGLOBIN 25 pg (25-35); MEAN CORPUSCULAR HGB CONC 32 g/dL (31-37); MEAN CORPUSCULAR VOLUME 78 fL (79-100); MONO # 0.1 x10^3/uL (0.0-1.1); MONO % 3 % (0-9); NEUT # 2.7 x10^3/uL (1.8-7.7); NEUT % 74 % (31-73); PLATELET COUNT 194 x10^3/uL (140-400); RED BLOOD COUNT 5.33 x10^6/uL (3.50-5.40); RED CELL DISTRIBUTION WIDTH 15.6 % (11.5-14.5); WHITE BLOOD COUNT 3.6 x10^3/uL (4.0-11.0)
[2019-09-16 04:58] LABS: CHOLESTEROL/HDL RATIO 2.2
[2019-09-16 07:29] LABS: PLT ESTIMATE ADEQUATE (ADEQUATE)
[2019-09-16] MEDS: BUDESONIDE 0.5 MG/2 ML NEBU. NEB SCH ×2 (08:00→20:48)
[2019-09-16] MEDS: IPRATRPIUM/ALBUTEROL 0.5/2.5MG 3 ML NEBU. NEB SCH ×4 (08:00→20:48)
[2019-09-16] MEDS: MEMANTINE 10 MG TABLET. PO SCH ×2 (08:18→20:37)
[2019-09-16] MEDS: CITALOPRAM 10 MG TABLET. PO SCH (08:18)
[2019-09-16] MEDS: DONEPEZIL HCL 10 MG TABLET. PO SCH (08:19)
[2019-09-16] MEDS: OMEGA-3 FATTY ACIDS/FISH OIL 1,000 MG CAPSULE. PO SCH (08:19)
[2019-09-16] MEDS: methylPREDNISolone SOD SUCC PF 40 MG/ML VIAL. IV SCH ×2 (08:19→20:37)
--- NOTE | 2019-09-16 08:19 | PDOC ---
PROGRESS NOTES Chief Complaint Chief Complaint A/P: AECOPD - nebs, steroids Syncope - likely vasovagal and does have hx of this. Possibly cough induced Abnormal EKG - elevated BP, criteria for LVH? Alzheimers dementia HTN - will monitor, goal BP not met, however, her amlodipine was stopped a year ago 2/2 symptomatic hypotension. Home BP recordings consistently in the 110s systolic. Stop all BP meds HLD History of Present Illness History of Present Illness Ms Holland is a 74-year-old female w/ PMHx Dementia, COPD, previous tobacco abuse, depression, hyperlipidemia, hypertension, anxiety who p/w a syncopal episode, lasted about 4 minutes. Also notes productive cough. Consulted Cardi ology and Neurology. BP dropped from 185 systolic to 98 systolic after amlodipine administration this morning and she symptomatically became more confused. Plan for echo this morning. Will stop BP meds. Vitals Vitals Vital Signs Date Time Temp Pulse Resp B/P (MAP) Pulse Ox O2 Delivery O2 Flow Rate FiO2 09/16/19 08:00 98 Nasal Cannula 1.0 09/16/19 03:00 98.7 71 20 165/71 (102) 98.7 Physical Exam General: Alert, Cooperative, No acute distress Heart: Regular rate (SR), Normal S1, Normal S2, Other (2/6 systolic murmur to LLS border) Abdomen: Soft, No tenderness Extremities: No cyanosis, No edema Skin: No breakdown, No significant lesion Labs LABS Laboratory Tests Test 09/15/19 14:50 09/15/19 16:47 09/15/19 18:15 09/16/19 04:15 White Blood Count 4.6 x10^3/uL (4.0-11.0) 3.6 x10^3/uL (4.0-11.0) Red Blood Count 5.45 x10^6/uL (3.50-5.40) 5.33 x10^6/uL (3.50-5.40) Hemoglobin 13.8 g/dL (12.0-15.5) 13.2 g/dL (12.0-15.5) Hematocrit 43.2 % (36.0-47.0) 41.8 % (36.0-47.0) Mean Corpuscular Volume 79 fL (79-100) 78 fL (79-100) Mean Corpuscular Hemoglobin 25 pg (25-35) 25 pg (25-35) Mean Corpuscular Hemoglobin Concent 32 g/dL (31-37) 32 g/dL (31-37) Red Cell Distribution Width 15.7 % (11.5-14.5) 15.6 % (11.5-14.5) Platelet Count 181 x10^3/uL (140-400) 194 x10^3/uL (140-400) Neutrophils (%) (Auto) 60 % (31-73) 74 % (31-73) Lymphocytes (%) (Auto) 26 % (24-48) 23 % (24-48) Monocytes (%) (Auto) 13 % (0-9) 3 % (0-9) Eosinophils (%) (Auto) 1 % (0-3) 0 % (0-3) Basophils (%) (Auto) 1 % (0-3) 1 % (0-3) Neutrophils # (Auto) 2.7 x10^3/uL (1.8-7.7) 2.7 x10^3/uL (1.8-7.7) Lymphocytes # (Auto) 1.2 x10^3/uL (1.0-4.8) 0.8 x10^3/uL (1.0-4.8) Monocytes # (Auto) 0.6 x10^3/uL (0.0-1.1) 0.1 x10^3/uL (0.0-1.1) Eosinophils # (Auto) 0.0 x10^3/uL (0.0-0.7) 0.0 x10^3/uL (0.0-0.7) Basophils # (Auto) 0.0 x10^3/uL (0.0-0.2) 0.0 x10^3/uL (0.0-0.2) Sodium Level 142 mmol/L (136-145) Potassium Level 3.8 mmol/L (3.5-5.1) Chloride Level 104 mmol/L (98-107) Carbon Dioxide Level 30 mmol/L (21-32) Anion Gap 8 (6-14) Blood Urea Nitrogen 11 mg/dL (7-20) Creatinine 1.1 mg/dL (0.6-1.0) Estimated GFR (Cockcroft-Gault) 58.4 BUN/Creatinine Ratio 10 (6-20) Glucose Level 100 mg/dL (70-99) Lactic Acid Level 2.3 mmol/L (0.4-2.0) 2.7 mmol/L (0.4-2.0) 2.6 mmol/L (0.4-2.0) 1.3 mmol/L (0.4-2.0) Calcium Level 8.9 mg/dL (8.5-10.1) Total Bilirubin 0.4 mg/dL (0.2-1.0) Aspartate Amino Transf (AST/SGOT) 28 U/L (15-37) Alanine Aminotransferase (ALT/SGPT) 15 U/L (14-59) Alkaline Phosphatase 104 U/L (46-116) Troponin I Quantitative < 0.017 ng/mL (0.000-0.055) < 0.017 ng/mL (0.000-0.055) KG-Qpr-L-Type Natriuretic Peptide 510 pg/mL (0-449) Total Protein 7.2 g/dL (6.4-8.2) Albumin 3.0 g/dL (3.4-5.0) Albumin/Globulin Ratio 0.7 (1.0-1.7) Prolactin 49.7 ng/mL (4.8-23.3) Platelet Estimate Adequate (ADEQUATE) Large Platelets Few Giant Platelets Occ Triglycerides Level 32 mg/dL (0-150) Cholesterol Level 161 mg/dL (0-200) LDL Cholesterol, Calculated 81 mg/dL (0-100) VLDL Cholesterol, Calculated 6 mg/dL (0-40) Non-HDL Cholesterol Calculated 87 mg/dL (0-129) HDL Cholesterol 74 mg/dL (40-60) Cholesterol/HDL Ratio 2.2 Assessment and Plan Assessmemt and Plan Problems Medical Problems: (1) Acute exacerbation of chronic obstructive pulmonary disease (COPD) Status: Acute (2) Alzheimer's dementia Status: Chronic (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 Labs Laboratory Tests Test 09/15/19 14:50 09/15/19 16:47 09/15/19 18:15 09/16/19 04:15 White Blood Count 4.6 x10^3/uL (4.0-11.0) 3.6 x10^3/uL (4.0-11.0) Red Blood Count 5.45 x10^6/uL (3.50-5.40) 5.33 x10^6/uL (3.50-5.40) Hemoglobin 13.8 g/dL (12.0-15.5) 13.2 g/dL (12.0-15.5) Hematocrit 43.2 % (36.0-47.0) 41.8 % (36.0-47.0) Mean Corpuscular Volume 79 fL (79-100) 78 fL (79-100) Mean Corpuscular Hemoglobin 25 pg (25-35) 25 pg (25-35) Mean Corpuscular Hemoglobin Concent 32 g/dL (31-37) 32 g/dL (31-37) Red Cell Distribution Width 15.7 % (11.5-14.5) 15.6 % (11.5-14.5) Platelet Count 181 x10^3/uL (140-400) 194 x10^3/uL (140-400) Neutrophils (%) (Auto) 60 % (31-73) 74 % (31-73) Lymphocytes (%) (Auto) 26 % (24-48) 23 % (24-48) Monocytes (%) (Auto) 13 % (0-9) 3 % (0-9) Eosinophils (%) (Auto) 1 % (0-3) 0 % (0-3) Basophils (%) (Auto) 1 % (0-3) 1 % (0-3) Neutrophils # (Auto) 2.7 x10^3/uL (1.8-7.7) 2.7 x10^3/uL (1.8-7.7) Lymphocytes # (Auto) 1.2 x10^3/uL (1.0-4.8) 0.8 x10^3/uL (1.0-4.8) Monocytes # (Auto) 0.6 x10^3/uL (0.0-1.1) 0.1 x10^3/uL (0.0-1.1) Eosinophils # (Auto) 0.0 x10^3/uL (0.0-0.7) 0.0 x10^3/uL (0.0-0.7) Basophils # (Auto) 0.0 x10^3/uL (0.0-0.2) 0.0 x10^3/uL (0.0-0.2) Sodium Level 142 mmol/L (136-145) Potassium Level 3.8 mmol/L (3.5-5.1) Chloride Level 104 mmol/L (98-107) Carbon Dioxide Level 30 mmol/L (21-32) Anion Gap 8 (6-14) Blood Urea Nitrogen 11 mg/dL (7-20) Creatinine 1.1 mg/dL (0.6-1.0) Estimated GFR (Cockcroft-Gault) 58.4 BUN/Creatinine Ratio 10 (6-20) Glucose Level 100 mg/dL (70-99) Lactic Acid Level 2.3 mmol/L (0.4-2.0) 2.7 mmol/L (0.4-2.0) 2.6 mmol/L (0.4-2.0) 1.3 mmol/L (0.4-2.0) Calcium Level 8.9 mg/dL (8.5-10.1) Total Bilirubin 0.4 mg/dL (0.2-1.0) Aspartate Amino Transf (AST/SGOT) 28 U/L (15-37) Alanine Aminotransferase (ALT/SGPT) 15 U/L (14-59) Alkaline Phosphatase 104 U/L (46-116) Troponin I Quantitative < 0.017 ng/mL (0.000-0.055) < 0.017 ng/mL (0.000-0.055) TO-Cqm-B-Type Natriuretic Peptide 510 pg/mL (0-449) Total Protein 7.2 g/dL (6.4-8.2) Albumin 3.0 g/dL (3.4-5.0) Albumin/Globulin Ratio 0.7 (1.0-1.7) Prolactin 49.7 ng/mL (4.8-23.3) Platelet Estimate Adequate (ADEQUATE) Large Platelets Few Giant Platelets Occ Triglycerides Level 32 mg/dL (0-150) Cholesterol Level 161 mg/dL (0-200) LDL Cholesterol, Calculated 81 mg/dL (0-100) VLDL Cholesterol, Calculated 6 mg/dL (0-40) Non-HDL Cholesterol Calculated 87 mg/dL (0-129) HDL Cholesterol 74 mg/dL (40-60) Cholesterol/HDL Ratio 2.2 Laboratory Tests Test 09/15/19 14:50 09/15/19 16:47 09/15/19 18:15 09/16/19 04:15 White Blood Count 4.6 x10^3/uL (4.0-11.0) 3.6 x10^3/uL (4.0-11.0) Red Blood Count 5.45 x10^6/uL (3.50-5.40) 5.33 x10^6/uL (3.50-5.40) Hemoglobin 13.8 g/dL (12.0-15.5) 13.2 g/dL (12.0-15.5) Hematocrit 43.2 % (36.0-47.0) 41.8 % (36.0-47.0) Mean Corpuscular Volume 79 fL (79-100) 78 fL (79-100) Mean Corpuscular Hemoglobin 25 pg (25-35) 25 pg (25-35) Mean Corpuscular Hemoglobin Concent 32 g/dL (31-37) 32 g/dL (31-37) Red Cell Distribution Width 15.7 % (11.5-14.5) 15.6 % (11.5-14.5) Platelet Count 181 x10^3/uL (140-400) 194 x10^3/uL (140-400) Neutrophils (%) (Auto) 60 % (31-73) 74 % (31-73) Lymphocytes (%) (Auto) 26 % (24-48) 23 % (24-48) Monocytes (%) (Auto) 13 % (0-9) 3 % (0-9) Eosinophils (%) (Auto) 1 % (0-3) 0 % (0-3) Basophils (%) (Auto) 1 % (0-3) 1 % (0-3) Neutrophils # (Auto) 2.7 x10^3/uL (1.8-7.7) 2.7 x10^3/uL (1.8-7.7) Lymphocytes # (Auto) 1.2 x10^3/uL (1.0-4.8) 0.8 x10^3/uL (1.0-4.8) Monocytes # (Auto) 0.6 x10^3/uL (0.0-1.1) 0.1 x10^3/uL (0.0-1.1) Eosinophils # (Auto) 0.0 x10^3/uL (0.0-0.7) 0.0 x10^3/uL (0.0-0.7) Basophils # (Auto) 0.0 x10^3/uL (0.0-0.2) 0.0 x10^3/uL (0.0-0.2) Sodium Level 142 mmol/L (136-145) Potassium Level 3.8 mmol/L (3.5-5.1) Chloride Level 104 mmol/L (98-107) Carbon Dioxide Level 30 mmol/L (21-32) Anion Gap 8 (6-14) Blood Urea Nitrogen 11 mg/dL (7-20) Creatinine 1.1 mg/dL (0.6-1.0) Estimated GFR (Cockcroft-Gault) 58.4 BUN/Creatinine Ratio 10 (6-20) Glucose Level 100 mg/dL (70-99) Lactic Acid Level 2.3 mmol/L (0.4-2.0) 2.7 mmol/L (0.4-2.0) 2.6 mmol/L (0.4-2.0) 1.3 mmol/L (0.4-2.0) Calcium Level 8.9 mg/dL (8.5-10.1) Total Bilirubin 0.4 mg/dL (0.2-1.0) Aspartate Amino Transf (AST/SGOT) 28 U/L (15-37) Alanine Aminotransferase (ALT/SGPT) 15 U/L (14-59) Alkaline Phosphatase 104 U/L (46-116) Troponin I Quantitative < 0.017 ng/mL (0.000-0.055) < 0.017 ng/mL (0.000-0.055) BO-Fpn-K-Type Natriuretic Peptide 510 pg/mL (0-449) Total Protein 7.2 g/dL (6.4-8.2) Albumin 3.0 g/dL (3.4-5.0) Albumin/Globulin Ratio 0.7 (1.0-1.7) Prolactin 49.7 ng/mL (4.8-23.3) Platelet Estimate Adequate (ADEQUATE) Large Platelets Few Giant Platelets Occ Triglycerides Level 32 mg/dL (0-150) Cholesterol Level 161 mg/dL (0-200) LDL Cholesterol, Calculated 81 mg/dL (0-100) VLDL Cholesterol, Calculated 6 mg/dL (0-40) Non-HDL Cholesterol Calculated 87 mg/dL (0-129) HDL Cholesterol 74 mg/dL (40-60) Cholesterol/HDL Ratio 2.2 Medications Current Medications Albuterol/ Ipratropium (Duoneb) 3 ml 1X ONCE NEB Last administered on 09/15/19at 13:44; Start 09/15/19 at 13:45; Stop 09/15/19 at 13:46; Status DC Sodium Chloride 1,000 ml @ 1,000 mls/hr 1X ONCE IV Last administered on 09/15/19at 15:45; Start 09/15/19 at 15:30; Stop 09/15/19 at 16:29; Status DC Methylprednisolone Sodium Succinate (SOLU-Medrol 125MG VIAL) 62.5 mg 1X ONCE IV Last administered on 09/15/19at 15:54; Start 09/15/19 at 16:00; Stop 09/15/19 at 16:01; Status DC Methylprednisolone Sodium Succinate (SOLU-Medrol 40MG VIAL) 40 mg STK-MED ONCE .ROUTE ; Start 09/15/19 at 15:52; Stop 09/15/19 at 15:52; Status DC Albuterol/ Ipratropium (Duoneb) 3 ml RTQID NEB Last administered on 09/15/19at 16:48; Start 09/15/19 at 16:00; Stop 09/15/19 at 17:33; Status DC Methylprednisolone Sodium Succinate (SOLU-Medrol 125MG VIAL) 62.5 mg Q8HRS IV ; Start 09/15/19 at 22:00; Stop 09/15/19 at 17:58; Status DC Influenza Virus Vaccine Quadrival (Afluria Quad 2019-20 (3yr Up) Syringe) 0.5 ml ONCE ONCE VAX IM ; Start 09/15/19 at 17:15; Stop 09/15/19 at 17:18; Status DC Citalopram Hydrobromide (CeleXA) 10 mg DAILY PO ; Start 09/16/19 at 09:00 Donepezil HCl (Aricept) 20 mg DAILY PO ; Start 09/16/19 at 09:00 Fluticasone Propionate (Flonase) 2 spray DAILY NS ; Start 09/16/19 at 09:00 Albuterol Sulfate (Ventolin Neb Soln) 2.5 mg PRN TID PRN NEB SHORTNESS OF BREATH; Start 09/15/19 at 17:45 Memantine (Namenda) 10 mg BID PO Last administered on 09/15/19at 20:58; Start 09/15/19 at 21:00 Vitamin D (Vitamin D3) 1,000 unit QHS PO Last administered on 09/15/19at 20:58; Start 09/15/19 at 21:00 Dextromethorphan/ Quinidine (Nuedexta 20-10 Mg) 1 cap DAILY PO ; Start 09/16/19 at 11:00 Budesonide (Pulmicort) 0.5 mg RTBID NEB Last administered on 09/16/19at 08:00; Start 09/15/19 at 20:00 Fish Oil (Fish Oil) 1,000 mg DAILY PO ; Start 09/16/19 at 09:00 Atorvastatin Calcium (Lipitor) 10 mg QHS PO Last administered on 09/15/19at 20 :58; Start 09/15/19 at 21:00 Amlodipine Besylate (Norvasc) 5 mg DAILY PO ; Start 09/16/19 at 09:00 Hydralazine HCl (Apresoline Inj) 10 mg PRN Q4HRS PRN IVP ELEVATED BP, SEE COMMENTS; Start 09/15/19 at 17:30 Albuterol/ Ipratropium (Duoneb) 3 ml RTQID NEB Last administered on 09/16/19at 08:00; Start 09/15/19 at 20:00 Methylprednisolone Sodium Succinate (SOLU-Medrol 40MG VIAL) 40 mg Q12HR IV Last administered on 09/15/19at 20:57; Start 09/15/19 at 21:00 Active Scripts Active Namenda (Memantine Hcl) 10 Mg Tablet 1 Tab PO BID Doxycycline Hyclate 100 Mg Capsule 1 Cap PO BID Flovent 250MCG Diskus (Fluticasone Propionate) 250 Mcg Disk.w.dev 1 Puff INH BID Reported Nuedexta 20-10 Mg Capsule (Dextromethorphan Hbr/Quinidine) 1 Each Capsule 1 Tab PO DAILY Fluticasone Propionate Nasal [place] (Fluticasone Propionate) 16 Gm [place].susp 2 S prays NS DAILY Vitamin D-3 (Cholecalciferol (Vitamin D3)) 2,000 Unit Capsule 1,000 Unit PO HS Fish Oil ([place]-3 Fatty Acids) 300 Mg Capsule 300 Mg PO DAILY Duoneb 0.5-3(2.5) Mg/3 Ml (Albuterol/Ipratropium) 3 Ml Ampul.neb 3 Ml NEB PRN TID PRN Pravastatin Sodium 40 Mg Tablet 1 Tab PO HS Citalopram Hbr (Citalopram Hydrobromide) 10 Mg Tablet 1 Tab PO DAILY Donepezil Hcl 10 Mg Tablet 2 Tab PO DAILY Vitals/I & O Vital Sign - Last 24 Hours 09/15/19 09/15/19 09/15/19 09/15/19 13:30 13:46 14:05 14:35 Temp 98.5 98.5 Pulse 96 64 64 Resp 18 18 18 B/P (MAP) 149/108 (122) 122/64 (83) 119/59 (79) Pulse Ox 97 91 92 95 O2 Delivery Room Air Room Air Room Air Room Air 09/15/19 09/15/19 09/15/19 09/15/19 15:09 16:15 16:20 16:25 Temp 96.9 96.9 Pulse 64 61 73 78 Resp 18 22 B/P (MAP) 149/62 (91) 172/76 (108) 180/81 (114) 128/85 (99) Pulse Ox 96 100 O2 Delivery Room Air Nasal Cannula O2 Flow Rate 2.0 09/15/19 09/15/19 09/15/19 09/15/19 16:48 18:01 19:00 19:40 Temp 98.2 98.2 Pulse 69 Resp 20 B/P (MAP) 162/65 (97) Pulse Ox 100 95 98 O2 Delivery Nasal Cannula Nasal Cannula Nasal Cannula Nasal Cannula O2 Flow Rate 2.0 2.0 2.0 1.0 09/15/19 09/15/19 09/16/19 09/16/19 20:00 23:00 03:00 08:00 Temp 98.3 98.7 98.3 98.7 Pulse 63 71 Resp 20 20 B/P (MAP) 144/67 (92) 165/71 (102) Pulse Ox 98 92 98 O2 Delivery Nasal Cannula Nasal Cannula Nasal Cannula Nasal Cannula O2 Flow Rate 2.0 2.0 2.0 1.0 Intake and Output 09/15/19 09/15/19 09/16/19 15:00 23:00 07:00 Intake Total 200 ml Balance 200 ml [place] KIMBALL MD Sep 16, 2019 08:19
[2019-09-16] MEDS: FLUTICASONE 50MCG/NASAL SPRAY 16GM BOTTLE. NS SCH (08:20)
[2019-09-16] MEDS ORDERED: amLODIPine BESYLATE 5 MG TABLET PO SCH (09:00)
[2019-09-16] MEDS: DEXTROMETHORPHAN/QUINIDINE 20/10MG CAPSULE. PO SCH (13:22)
--- NOTE | 2019-09-16 13:42 | NUR ---
SS following for discharge planning. SS reviewed pt chart. Pt is from home with spouse and is currently requiring oxygen. PT/OT ordered. SS will continue to follow for discharge planning.
--- NOTE | 2019-09-16 15:02 | PDOC ---
GRAHAM ISAACS FILER AND SANDER 09/16/19 1502: CARDIO Progress Notes Date and Time Date of Service 09/16/2019 Time of Evaluation 1440 Subjective Subjective: No Chest Pain, No shortness of breath, No Palpitations Vitals Vitals Vital Signs Date Time Temp Pulse Resp B/P (MAP) Pulse Ox O2 Delivery O2 Flow Rate FiO2 09/16/19 11:38 96 09/16/19 11:24 97.2 86 20 139/80 (99) 97.2 09/16/19 08:00 Nasal Cannula 1.0 Weight Weight [ ] Input and Output Intake and Output Intake and Output 09/16/19 07:00 Intake Total 200 ml Balance 200 ml Intake Oral 200 ml # Voids 1 Laboratory Labs Laboratory Tests Test 09/15/19 14:50 09/15/19 16:47 09/15/19 18:15 09/16/19 04:15 White Blood Count 4.6 x10^3/uL (4.0-11.0) 3.6 x10^3/uL (4.0-11.0) Red Blood Count 5.45 x10^6/uL (3.50-5.40) 5.33 x10^6/uL (3.50-5.40) Hemoglobin 13.8 g/dL (12.0-15.5) 13.2 g/dL (12.0-15.5) Hematocrit 43.2 % (36.0-47.0) 41.8 % (36.0-47.0) Mean Corpuscular Volume 79 fL (79-100) 78 fL (79-100) Mean Corpuscular Hemoglobin 25 pg (25-35) 25 pg (25-35) Mean Corpuscular Hemoglobin Concent 32 g/dL (31-37) 32 g/dL (31-37) Red Cell Distribution Width 15.7 % (11.5-14.5) 15.6 % (11.5-14.5) Platelet Count 181 x10^3/uL (140-400) 194 x10^3/uL (140-400) Neutrophils (%) (Auto) 60 % (31-73) 74 % (31-73) Lymphocytes (%) (Auto) 26 % (24-48) 23 % (24-48) Monocytes (%) (Auto) 13 % (0-9) 3 % (0-9) Eosinophils (%) (Auto) 1 % (0-3) 0 % (0-3) Basophils (%) (Auto) 1 % (0-3) 1 % (0-3) Neutrophils # (Auto) 2.7 x10^3/uL (1.8-7.7) 2.7 x10^3/uL (1.8-7.7) Lymphocytes # (Auto) 1.2 x10^3/uL (1.0-4.8) 0.8 x10^3/uL (1.0-4.8) Monocytes # (Auto) 0.6 x10^3/uL (0.0-1.1) 0.1 x10^3/uL (0.0-1.1) Eosinophils # (Auto) 0.0 x10^3/uL (0.0-0.7) 0.0 x10^3/uL (0.0-0.7) Basophils # (Auto) 0.0 x10^3/uL (0.0-0.2) 0.0 x10^3/uL (0.0-0.2) Sodium Level 142 mmol/L (136-145) Potassium Level 3.8 mmol/L (3.5-5.1) Chloride Level 104 mmol/L (98-107) Carbon Dioxide Level 30 mmol/L (21-32) Anion Gap 8 (6-14) Blood Urea Nitrogen 11 mg/dL (7-20) Creatinine 1.1 mg/dL (0.6-1.0) Estimated GFR (Cockcroft-Gault) 58.4 BUN/Creatinine Ratio 10 (6-20) Glucose Level 100 mg/dL (70-99) Lactic Acid Level 2.3 mmol/L (0.4-2.0) 2.7 mmol/L (0.4-2.0) 2.6 mmol/L (0.4-2.0) 1.3 mmol/L (0.4-2.0) Calcium Level 8.9 mg/dL (8.5-10.1) Total Bilirubin 0.4 mg/dL (0.2-1.0) Aspartate Amino Transf (AST/SGOT) 28 U/L (15-37) Alanine Aminotransferase (ALT/SGPT) 15 U/L (14-59) Alkaline Phosphatase 104 U/L (46-116) Troponin I Quantitative < 0.017 ng/mL (0.000-0.055) < 0.017 ng/mL (0.000-0.055) BD-Bpd-Y-Type Natriuretic Peptide 510 pg/mL (0-449) Total Protein 7.2 g/dL (6.4-8.2) Albumin 3.0 g/dL (3.4-5.0) Albumin/Globulin Ratio 0.7 (1.0-1.7) Prolactin 49.7 ng/mL (4.8-23.3) Platelet Estimate Adequate (ADEQUATE) Large Platelets Few Giant Platelets Occ Triglycerides Level 32 mg/dL (0-150) Cholesterol Level 161 mg/dL (0-200) LDL Cholesterol, Calculated 81 mg/dL (0-100) VLDL Cholesterol, Calculated 6 mg/dL (0-40) Non-HDL Cholesterol Calculated 87 mg/dL (0-129) HDL Cholesterol 74 mg/dL (40-60) Cholesterol/HDL Ratio 2.2 Physical Exam HEENT: Neck Supple W Full Motion Chest: Symmetric LUNGS: Other (upper rhonchi) Heart: RRR (Sr no ectopies) Abdomen: Soft N/T Extremities: No Calf Tenderness Neurology: alert, oriented, follow commands Assessment Assessment 1. AECOPD 2. Syncope: + for orthostasis. No arrhythmia 3. Abnormal EKG: likely LV strain from high BP. no CP, no SOA 4. 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 HLP: lipids on goal 7. Hyperprolactinemia: per PCP Recommendations 1. TTE pending 2. Will check BP both arms and repeat orthostatic readings. 3. DC norvasc. Will need to prop at 45 degree angle when laying and avoid laying flat. Discussed with RN and daughter. 4. [facility] JILLIAN GARCIA MD 09/17/19 0752: CARDIO Progress Notes Plan Plan Late entry for 09/16/2019. Patient seen and examined. Discussed with the nursing staff and patient's family at bedside. Patient has labile blood pressures and we will use amlodipine for daily dosing and then hydralazine as needed for systolic blood pressure greater than 160. Supportive care for now. Okay to discharge from a cardiac standpoint. GRAHAM ISAACS APRN Sep 16, 2019 15:02 JILLIAN GARCIA MD Sep 17, 2019 07:52
--- NOTE | 2019-09-16 16:15 | PDOC ---
PULMONARY PROGRESS NOTES Vitals Vital Signs Date Time Temp Pulse Resp B/P (MAP) Pulse Ox O2 Delivery O2 Flow Rate FiO2 09/16/19 11:38 96 09/16/19 11:24 97.2 86 20 139/80 (99) 97.2 09/16/19 08:00 Nasal Cannula 1.0 Labs Laboratory Tests Test 09/15/19 14:50 09/15/19 16:47 09/15/19 18:15 09/16/19 04:15 White Blood Count 4.6 x10^3/uL (4.0-11.0) 3.6 x10^3/uL (4.0-11.0) Red Blood Count 5.45 x10^6/uL (3.50-5.40) 5.33 x10^6/uL (3.50-5.40) Hemoglobin 13.8 g/dL (12.0-15.5) 13.2 g/dL (12.0-15.5) Hematocrit 43.2 % (36.0-47.0) 41.8 % (36.0-47.0) Mean Corpuscular Volume 79 fL (79-100) 78 fL (79-100) Mean Corpuscular Hemoglobin 25 pg (25-35) 25 pg (25-35) Mean Corpuscular Hemoglobin Concent 32 g/dL (31-37) 32 g/dL (31-37) Red Cell Distribution Width 15.7 % (11.5-14.5) 15.6 % (11.5-14.5) Platelet Count 181 x10^3/uL (140-400) 194 x10^3/uL (140-400) Neutrophils (%) (Auto) 60 % (31-73) 74 % (31-73) Lymphocytes (%) (Auto) 26 % (24-48) 23 % (24-48) Monocytes (%) (Auto) 13 % (0-9) 3 % (0-9) Eosinophils (%) (Auto) 1 % (0-3) 0 % (0-3) Basophils (%) (Auto) 1 % (0-3) 1 % (0-3) Neutrophils # (Auto) 2.7 x10^3/uL (1.8-7.7) 2.7 x10^3/uL (1.8-7.7) Lymphocytes # (Auto) 1.2 x10^3/uL (1.0-4.8) 0.8 x10^3/uL (1.0-4.8) Monocytes # (Auto) 0.6 x10^3/uL (0.0-1.1) 0.1 x10^3/uL (0.0-1.1) Eosinophils # (Auto) 0.0 x10^3/uL (0.0-0.7) 0.0 x10^3/uL (0.0-0.7) Basophils # (Auto) 0.0 x10^3/uL (0.0-0.2) 0.0 x10^3/uL (0.0-0.2) Sodium Level 142 mmol/L (136-145) Potassium Level 3.8 mmol/L (3.5-5.1) Chloride Level 104 mmol/L (98-107) Carbon Dioxide Level 30 mmol/L (21-32) Anion Gap 8 (6-14) Blood Urea Nitrogen 11 mg/dL (7-20) Creatinine 1.1 mg/dL (0.6-1.0) Estimated GFR (Cockcroft-Gault) 58.4 BUN/Creatinine Ratio 10 (6-20) Glucose Level 100 mg/dL (70-99) Lactic Acid Level 2.3 mmol/L (0.4-2.0) 2.7 mmol/L (0.4-2.0) 2.6 mmol/L (0.4-2.0) 1.3 mmol/L (0.4-2.0) Calcium Level 8.9 mg/dL (8.5-10.1) Total Bilirubin 0.4 mg/dL (0.2-1.0) Aspartate Amino Transf (AST/SGOT) 28 U/L (15-37) Alanine Aminotransferase (ALT/SGPT) 15 U/L (14-59) Alkaline Phosphatase 104 U/L (46-116) Troponin I Quantitative < 0.017 ng/mL (0.000-0.055) < 0.017 ng/mL (0.000-0.055) IH-Ucf-U-Type Natriuretic Peptide 510 pg/mL (0-449) Total Protein 7.2 g/dL (6.4-8.2) Albumin 3.0 g/dL (3.4-5.0) Albumin/Globulin Ratio 0.7 (1.0-1.7) Prolactin 49.7 ng/mL (4.8-23.3) Platelet Estimate Adequate (ADEQUATE) Large Platelets Few Giant Platelets Occ Triglycerides Level 32 mg/dL (0-150) Cholesterol Level 161 mg/dL (0-200) LDL Cholesterol, Calculated 81 mg/dL (0-100) VLDL Cholesterol, Calculated 6 mg/dL (0-40) Non-HDL Cholesterol Calculated 87 mg/dL (0-129) HDL Cholesterol 74 mg/dL (40-60) Cholesterol/HDL Ratio 2.2 Laboratory Tests Test 09/15/19 16:47 09/15/19 18:15 09/16/19 04:15 Lactic Acid Level 2.7 mmol/L (0.4-2.0) 2.6 mmol/L (0.4-2.0) 1.3 mmol/L (0.4-2.0) Troponin I Quantitative < 0.017 ng/mL (0.000-0.055) White Blood Count 3.6 x10^3/uL (4.0-11.0) Red Blood Count 5.33 x10^6/uL (3.50-5.40) Hemoglobin 13.2 g/dL (12.0-15.5) Hematocrit 41.8 % (36.0-47.0) Mean Corpuscular Volume 78 fL (79-100) Mean Corpuscular Hemoglobin 25 pg (25-35) Mean Corpuscular Hemoglobin Concent 32 g/dL (31-37) Red Cell Distribution Width 15.6 % (11.5-14.5) Platelet Count 194 x10^3/uL (140-400) Neutrophils (%) (Auto) 74 % (31-73) Lymphocytes (%) (Auto) 23 % (24-48) Monocytes (%) (Auto) 3 % (0-9) Eosinophils (%) (Auto) 0 % (0-3) Basophils (%) (Auto) 1 % (0-3) Neutrophils # (Auto) 2.7 x10^3/uL (1.8-7.7) Lymphocytes # (Auto) 0.8 x10^3/uL (1.0-4.8) Monocytes # (Auto) 0.1 x10^3/uL (0.0-1.1) Eosinophils # (Auto) 0.0 x10^3/uL (0.0-0.7) Basophils # (Auto) 0.0 x10^3/uL (0.0-0.2) Platelet Estimate Adequate (ADEQUATE) Large Platelets Few Giant Platelets Occ Triglycerides Level 32 mg/dL (0-150) Cholesterol Level 161 mg/dL (0-200) LDL Cholesterol, Calculated 81 mg/dL (0-100) VLDL Cholesterol, Calculated 6 mg/dL (0-40) Non-HDL Cholesterol Calculated 87 mg/dL (0-129) HDL Cholesterol 74 mg/dL (40-60) Cholesterol/HDL Ratio 2.2 Medications Active Scripts Medications Dose Route/Sig Max Daily Dose Days Date Category Namenda (Memantine Hcl) 10 Mg Tablet 1 Tab PO BID 03/21/19 Rx Nuedexta 20-10 Mg Capsule (Dextromethorphan Hbr/Quinidine) 1 Each Capsule 1 Tab PO DAILY 03/21/19 Reported Fluticasone Propionate Nasal [place] (Fluticasone Propionate) 16 Gm [place].susp 2 Sprays NS DAILY 03/21/19 Reported Doxycycline Hyclate 100 Mg Capsule 1 Cap PO BID 03/13/19 Rx Flovent 250MCG Diskus (Fluticasone Propionate) 250 Mcg Disk.w.dev 1 Puff INH BID 12/07/15 Rx Vitamin D-3 (Cholecalciferol (Vitamin D3)) 2,000 Unit Capsule 1,000 Unit PO HS 04/03/15 Reported Fish Oil ([place]-3 Fatty Acids) 300 Mg Capsule 300 Mg PO DAILY 04/03/15 Reported Duoneb 0.5-3(2.5) Mg/3 Ml (Albuterol/Ipratropium) 3 Ml Ampul.neb 3 Ml NEB PRN TID PRN 04/03/15 Reported Pravastatin Sodium 40 Mg Tablet 1 Tab PO HS 04/03/15 Reported Citalopram Hbr (Citalopram Hydrobromide) 10 Mg Tablet 1 Tab PO DAILY 04/03/15 Reported Donepezil Hcl 10 Mg Tablet 2 Tab PO DAILY 04/03/15 Reported Impression . NOTE DICTATED COPD WILL FOLLOW NO ADDITIONAL WORK NEEDED FROM [facility]MON[facility] SAVI OCONNOR MD Sep 16, 2019 16:15
[2019-09-16] MEDS ORDERED: hydrALAZINE 25 MG TABLET PO PRN (18:00)
[2019-09-16] MEDS: amLODIPine BESYLATE 5 MG TABLET PO SCH (18:29)
[2019-09-16] MEDS: ATORVASTATIN CALCIUM 10 MG TABLET. PO SCH (20:37)
[2019-09-16] MEDS: CHOLECALCIFEROL (VITAMIN D3) 1,000 UNIT TABLET PO SCH (20:37)
--- NOTE | 2019-09-16 20:48 | CONS ---
DATE OF CONSULTATION: 09/16/2019 ATTENDING PHYSICIAN: Dr. Ricketts. CONSULTING PHYSICIAN: Savi Chavarria MD REASON FOR CONSULTATION: The patient seen in pulmonary consultation at the request of Dr. Ricketts for underlying COPD. HISTORY OF PRESENT ILLNESS: The patient is a 74-year-old that is demented and the history is obtained by speaking with the . She had a syncopal episode at home, not associated with shortness of air. There was no reported fever, chills, nausea, vomiting, diarrhea. The patient was not reporting being short of breath 24-48 hours prior to this admission. She does have underlying COPD, tobacco dependent, in remission. I was asked to see her in consultation. According to the , she does not experience acute exacerbations of COPD on a regular basis. She wears no oxygen at home. PAST MEDICAL HISTORY: Dementia, COPD, tobacco dependent, in remission, depression, hyperlipidemia, hypertension, anxiety. ALLERGIES: LISTED TO SULFA, CLARITHROMYCIN, PENICILLIN AND GATIFLOXACIN. FAMILY HISTORY: Remarkable for coronary artery disease. SOCIAL HISTORY: She quit tobacco many years ago. REVIEW OF SYSTEMS: Unobtainable secondary to the patient's condition. PHYSICAL EXAMINATION: VITAL SIGNS: Stable. O2 saturation was greater than 92%. HEENT: Eyes, the sclerae were nonicteric. NECK: Jugular venous distention was not elevated. No lymphadenopathy. CHEST: Full expansion. LUNGS: Adequate flow, no wheezes. CARDIOVASCULAR: Regular rate and rhythm with S1, S2, no S3. ABDOMEN: Soft, nontender, nondistended. EXTREMITIES: No clubbing, cyanosis or edema. NEUROLOGIC: The patient was awake, alert, following commands. A detailed neuro exam was not performed. LABORATORY DATA: White count was normal. Electrolytes were noted. IMAGING STUDIES: Chest x-ray revealed no acute cardiopulmonary process. IMPRESSION: 1. Chronic obstructive pulmonary disease. 2. Syncopal episode at home. 3. Alzheimer dementia. 4. Hypertension. PLAN: From a pulmonary standpoint of view, no additional workup is required. I noticed that cardiology note indicates that this might be cough-induced syncope. That information was not provided to me by the . We will monitor for now. I do appreciate the privilege in sharing in their care. SAVI OCONNOR MD DR: ALEXA/sweetie JOB#: [id number] / [id number]
[2019-09-17] VITALS (7 sets, daily range): BP systolic 132–188; BP diastolic 53–87
[2019-09-17] MEDS: IPRATRPIUM/ALBUTEROL 0.5/2.5MG 3 ML NEBU. NEB SCH ×4 (07:14→20:08)
[2019-09-17] MEDS: BUDESONIDE 0.5 MG/2 ML NEBU. NEB SCH ×2 (07:14→20:08)
[2019-09-17] MEDS: methylPREDNISolone SOD SUCC PF 40 MG/ML VIAL. IV SCH ×2 (08:57→20:54)
[2019-09-17] MEDS: CITALOPRAM 10 MG TABLET. PO SCH (08:57)
[2019-09-17] MEDS: OMEGA-3 FATTY ACIDS/FISH OIL 1,000 MG CAPSULE. PO SCH (08:57)
[2019-09-17] MEDS: amLODIPine BESYLATE 5 MG TABLET PO SCH (08:57)
[2019-09-17] MEDS: DONEPEZIL HCL 10 MG TABLET. PO SCH (08:57)
[2019-09-17] MEDS: MEMANTINE 10 MG TABLET. PO SCH ×2 (08:57→20:54)
[2019-09-17] MEDS: FLUTICASONE 50MCG/NASAL SPRAY 16GM BOTTLE. NS SCH (09:03)
[2019-09-17] MEDS: DEXTROMETHORPHAN/QUINIDINE 20/10MG CAPSULE. PO SCH (09:03)
--- NOTE | 2019-09-17 09:37 | PDOC ---
PROGRESS NOTES Chief Complaint Chief Complaint A/P: AECOPD - nebs, steroids Syncope - likely vasovagal and does have hx of this. Possibly cough induced. I have advised to stop donepezil as she has been on it more than 2 years and has now had multiple syncopal episodes without any other clear etiology Abnormal EKG - elevated BP, criteria for LVH? Alzheimers dementia HTN - will monitor, goal BP not met, however, her amlodipine was stopped a year ago 2/2 symptomatic hypotension. Home BP recordings consistently in the 110s systolic. Stop all BP meds HLD History of Present Illness History of Present Illness Ms Holland is a 74-year-old female w/ PMHx Dementia, COPD, previous tobacco abuse, depression, hyperlipidemia, hypertension, anxiety who p/w a syncopal episode, lasted about 4 minutes. Also notes productive cough. Consulted Cardiology and Neurology. 11/: BP dropped from 185 systolic to 98 systolic after amlodipine administration this morning and she symptomatically became more confused. Plan for echo this morning. Will stop BP meds. BP 188 systolic, given lower amlodipine dose with good effect today. Holding aricept. D/w bedside. Vitals Vitals Vital Signs Date Time Temp Pulse Resp B/P (MAP) Pulse Ox O2 Delivery O2 Flow Rate FiO2 09/17/19 08:57 75 188/87 09/17/19 07:17 95 Nasal Cannula 0.5 09/17/19 07:00 98.2 22 98.2 Physical Exam General: Alert, Cooperative, No acute distress Heart: Regular rate (SR), Normal S1, Normal S2, Other (2/6 systolic murmur to LLS border) Abdomen: Soft, No tenderness Extremities: No cyanosis, No edema Skin: No breakdown, No significant lesion Assessment and Plan Assessmemt and Plan Problems Medical Problems: (1) Acute exacerbation of chronic obstructive pulmonary disease (COPD) Status: Acute (2) Alzheimer's dementia Status: Chronic (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 Labs Laboratory Tests Test 09/15/19 14:50 09/15/19 16:47 09/15/19 18:15 09/16/19 04:15 White Blood Count 4.6 x10^3/uL (4.0-11.0) 3.6 x10^3/uL (4.0-11.0) Red Blood Count 5.45 x10^6/uL (3.50-5.40) 5.33 x10^6/uL (3.50-5.40) Hemoglobin 13.8 g/dL (12.0-15.5) 13.2 g/dL (12.0-15.5) Hematocrit 43.2 % (36.0-47.0) 41.8 % (36.0-47.0) Mean Corpuscular Volume 79 fL (79-100) 78 fL (79-100) Mean Corpuscular Hemoglobin 25 pg (25-35) 25 pg (25-35) Mean Corpuscular Hemoglobin Concent 32 g/dL (31-37) 32 g/dL (31-37) Red Cell Distribution Width 15.7 % (11.5-14.5) 15.6 % (11.5-14.5) Platelet Count 181 x10^3/uL (140-400) 194 x10^3/uL (140-400) Neutrophils (%) (Auto) 60 % (31-73) 74 % (31-73) Lymphocytes (%) (Auto) 26 % (24-48) 23 % (24-48) Monocytes (%) (Auto) 13 % (0-9) 3 % (0-9) Eosinophils (%) (Auto) 1 % (0-3) 0 % (0-3) Basophils (%) (Auto) 1 % (0-3) 1 % (0-3) Neutrophils # (Auto) 2.7 x10^3/uL (1.8-7.7) 2.7 x10^3/uL (1.8-7.7) Lymphocytes # (Auto) 1.2 x10^3/uL (1.0-4.8) 0.8 x10^3/uL (1.0-4.8) Monocytes # (Auto) 0.6 x10^3/uL (0.0-1.1) 0.1 x10^3/uL (0.0-1.1) Eosinophils # (Auto) 0.0 x10^3/uL (0.0-0.7) 0.0 x10^3/uL (0.0-0.7) Basophils # (Auto) 0.0 x10^3/uL (0.0-0.2) 0.0 x10^3/uL (0.0-0.2) Sodium Level 142 mmol/L (136-145) Potassium Level 3.8 mmol/L (3.5-5.1) Chloride Level 104 mmol/L (98-107) Carbon Dioxide Level 30 mmol/L (21-32) Anion Gap 8 (6-14) Blood Urea Nitrogen 11 mg/dL (7-20) Creatinine 1.1 mg/dL (0.6-1.0) Estimated GFR (Cockcroft-Gault) 58.4 BUN/Creatinine Ratio 10 (6-20) Glucose Level 100 mg/dL (70-99) Lactic Acid Level 2.3 mmol/L (0.4-2.0) 2.7 mmol/L (0.4-2.0) 2.6 mmol/L (0.4-2.0) 1.3 mmol/L (0.4-2.0) Calcium Level 8.9 mg/dL (8.5-10.1) Total Bilirubin 0.4 mg/dL (0.2-1.0) Aspartate Amino Transf (AST/SGOT) 28 U/L (15-37) Alanine Aminotransferase (ALT/SGPT) 15 U/L (14-59) Alkaline Phosphatase 104 U/L (46-116) Troponin I Quantitative < 0.017 ng/mL (0.000-0.055) < 0.017 ng/mL (0.000-0.055) BN-Ymn-J-Type Natriuretic Peptide 510 pg/mL (0-449) Total Protein 7.2 g/dL (6.4-8.2) Albumin 3.0 g/dL (3.4-5.0) Albumin/Globulin Ratio 0.7 (1.0-1.7) Prolactin 49.7 ng/mL (4.8-23.3) Platelet Estimate Adequate (ADEQUATE) Large Platelets Few Giant Platelets Occ Triglycerides Level 32 mg/dL (0-150) Cholesterol Level 161 mg/dL (0-200) LDL Cholesterol, Calculated 81 mg/dL (0-100) VLDL Cholesterol, Calculated 6 mg/dL (0-40) Non-HDL Cholesterol Calculated 87 mg/dL (0-129) HDL Cholesterol 74 mg/dL (40-60) Cholesterol/HDL Ratio 2.2 Microbiology 09/15/19 Blood Culture - Preliminary, Resulted NO GROWTH AFTER 1 DAY Medications Current Medications Albuterol/ Ipratropium (Duoneb) 3 ml 1X ONCE NEB Last administered on 09/15/19at 13:44; Start 09/15/19 at 13:45; Stop 09/15/19 at 13:46; Status DC Sodium Chloride 1,000 ml @ 1,000 mls/hr 1X ONCE IV Last administered on 09/15/19at 15:45; Start 09/15/19 at 15:30; Stop 09/15/19 at 16:29; Status DC Methylprednisolone Sodium Succinate (SOLU-Medrol 125MG VIAL) 62.5 mg 1X ONCE IV Last administered on 09/15/19at 15:54; Start 09/15/19 at 16:00; Stop 09/15/19 at 16:01; Status DC Methylprednisolone Sodium Succinate (SOLU-Medrol 40MG VIAL) 40 mg STK-MED ONCE .ROUTE ; Start 09/15/19 at 15:52; Stop 09/15/19 at 15:52; Status DC Albuterol/ Ipratropium (Duoneb) 3 ml RTQID NEB Last administered on 09/15/19at 16:48; Start 09/15/19 at 16:00; Stop 09/15/19 at 17:33; Status DC Methylprednisolone Sodium Succinate (SOLU-Medrol 125MG VIAL) 62.5 mg Q8HRS IV ; Start 09/15/19 at 22:00; Stop 09/15/19 at 17:58; Status DC Influenza Virus Vaccine Quadrival (Afluria Quad 2019-20 (3yr Up) Syringe) 0.5 ml ONCE ONCE VAX IM Last administered on 09/17/19at 08:59; Start 09/15/19 at 17:15; Stop 09/15/19 at 17:18; Status DC Citalopram Hydrobromide (CeleXA) 10 mg DAILY PO Last administered on 09/17/19at 08:57; Start 09/16/19 at 09:00 Donepezil HCl (Aricept) 20 mg DAILY PO Last administered on 09/17/19 08:57; Start 09/16/19 at 09:00 Fluticasone Propionate (Flonase) 2 spray DAILY NS Last administered on 09/17/19 09:03; Start 09/16/19 at 09:00 Albuterol Sulfate (Ventolin Neb Soln) 2.5 mg PRN TID PRN NEB SHORTNESS OF BREATH; Start 09/15/19 at 17:45 Memantine (Namenda) 10 mg BID PO Last administered on 09/17/19 08:57; Start 09/15/19 at 21:00 Vitamin D (Vitamin D3) 1,000 unit QHS PO Last administered on 09/16/19 20:37; Start 09/15/19 at 21:00 Dextromethorphan/ Quinidine (Nuedexta 20-10 Mg) 1 cap DAILY PO Last administered on 09/17/19 09:03; Start 09/16/19 at 11:00 Budesonide (Pulmicort) 0.5 mg RTBID NEB Last administered on 09/17/19 07:14; Start 09/15/19 at 20:00 Fish Oil (Fish Oil) 1,000 mg DAILY PO Last administered on 09/17/19 08:57; Start 09/16/19 at 09:00 Atorvastatin Calcium (Lipitor) 10 mg QHS PO Last administered on 09/16/19 20:37; Start 09/15/19 at 21:00 Amlodipine Besylate (Norvasc) 5 mg DAILY PO Last administered on 09/16/19 08:19; Start 09/16/19 at 09:00; Stop 09/16/19 at 10:21; Status DC Hydralazine HCl (Apresoline Inj) 10 mg PRN Q4HRS PRN IVP ELEVATED BP, SEE COMMENTS Last administered on 09/16/19at 08:11; Start 09/15/19 at 17:30; Stop 09/16/19 at 10:21; Status DC Albuterol/ Ipratropium (Duoneb) 3 ml RTQID NEB Last administered on 09/17/19 07:14; Start 09/15/19 at 20:00 Methylprednisolone Sodium Succinate (SOLU-Medrol 40MG VIAL) 40 mg Q12HR IV Last administered on 09/17/19at 08:57; Start 09/15/19 at 21:00 Hydralazine HCl (Apresoline) 25 mg PRN TID PRN PO HYPERTENSION; Start 09/16/19 at 18:00 Amlodipine Besylate (Norvasc) 5 mg DAILY PO Last administered on 09/17/19at 08:57; Start 09/16/19 at 18:30 Active Scripts Active Namenda (Memantine Hcl) 10 Mg Tablet 1 Tab PO BID Doxycycline Hyclate 100 Mg Capsule 1 Cap PO BID Flovent 250MCG Diskus (Fluticasone Propionate) 250 Mcg Disk.w.dev 1 Puff INH BID Reported Nuedexta 20-10 Mg Capsule (Dextromethorphan Hbr/Quinidine) 1 Each Capsule 1 Tab PO DAILY Fluticasone Propionate Nasal [place] (Fluticasone Propionate) 16 Gm [place].susp 2 Sprays NS DAILY Vitamin D-3 (Cholecalciferol (Vitamin D3)) 2,000 Unit Capsule 1,000 Unit PO HS Fish Oil ([place]-3 Fatty Acids) 300 Mg Capsule 300 Mg PO DAILY Duoneb 0.5-3(2.5) Mg/3 Ml (Albuterol/Ipratropium) 3 Ml Ampul.neb 3 Ml NEB PRN TID PRN Pravastatin Sodium 40 Mg Tablet 1 Tab PO HS Citalopram Hbr (Citalopram Hydrobromide) 10 Mg Tablet 1 Tab PO DAILY Donepezil Hcl 10 Mg Tablet 2 Tab PO DAILY Vitals/I & O Vital Sign - Last 24 Hours 09/16/19 09/16/19 09/16/19 09/16/19 11:24 11:38 15:00 15:05 Temp 97.2 97.8 97.2 97.8 Pulse 86 80 102 Resp 20 20 B/P (MAP) 139/80 (99) 125/56 (79) 138/62 (87) Pulse Ox 90 96 93 09/16/19 09/16/19 09/16/19 09/16/19 15:10 17:20 17:20 19:10 Temp 97.5 97.5 Pulse 90 83 Resp 21 B/P (MAP) 123/67 (85) 135/65 (88) 123/67 (85) 106/67 (80) Pulse Ox 90 O2 Delivery Room Air 09/16/19 09/16/19 09/16/19 09/17/19 19:40 20:47 23:23 03:00 Temp 98.6 98.1 98.6 98.1 Pulse 85 81 Resp 28 24 B/P (MAP) 142/69 (93) 135/64 (87) Pulse Ox 96 90 90 O2 Delivery Nasal Cannula Room Air Room Air Room Air O2 Flow Rate 1.0 09/17/19 09/17/19 09/17/19 07:00 07:17 08:57 Temp 98.2 98.2 Pulse 75 75 Resp 22 B/P (MAP) 188/87 (120) 188/87 Pulse Ox 96 95 O2 Delivery Nasal Cannula Nasal Cannula O2 Flow Rate 2.0 0.5 Intake and Output 09/16/19 09/16/19 09/17/19 15:00 23:00 07:00 Intake Total 200 ml 50 ml Balance 200 ml 50 ml [place] KIMBALL MD Sep 17, 2019 09:37
--- NOTE | 2019-09-17 14:20 | PDOC ---
PULMONARY PROGRESS NOTES Subjective The patient is a 74-year-old that is demente. She had a syncopal episode at home, not associated with shortness of air. There was no reported fever, chills, nausea, vomiting, diarrhea. The patient was not reporting being short of breath 24-48 hours prior to this admission. She does have underlying COPD, tobacco dependent, in remission. There has been no respiratory change since yesterday. Vitals Vital Signs Date Time Temp Pulse Resp B/P (MAP) Pulse Ox O2 Delivery O2 Flow Rate FiO2 09/17/19 11:55 Nasal Cannula 0.5 09/17/19 11:00 98.7 76 20 132/66 (88) 94 98.7 ROS: No Nausea, No Chest Pain, No Abdominal Pain, No Increase Cough General: Alert Lungs: Clear, Other (slightly diminished diffusely without wheezing or rales) Cardiovascular: S1, S2 Abdomen: Soft, Non-tender Neuro Exam: Alert Extremities: No Edema Labs Laboratory Tests Test 09/15/19 14:50 09/15/19 16:47 09/15/19 18:15 09/16/19 04:15 White Blood Count 4.6 x10^3/uL (4.0-11.0) 3.6 x10^3/uL (4.0-11.0) Red Blood Count 5.45 x10^6/uL (3.50-5.40) 5.33 x10^6/uL (3.50-5.40) Hemoglobin 13.8 g/dL (12.0-15.5) 13.2 g/dL (12.0-15.5) Hematocrit 43.2 % (36.0-47.0) 41.8 % (36.0-47.0) Mean Corpuscular Volume 79 fL (79-100) 78 fL (79-100) Mean Corpuscular Hemoglobin 25 pg (25-35) 25 pg (25-35) Mean Corpuscular Hemoglobin Concent 32 g/dL (31-37) 32 g/dL (31-37) Red Cell Distribution Width 15.7 % (11.5-14.5) 15.6 % (11.5-14.5) Platelet Count 181 x10^3/uL (140-400) 194 x10^3/uL (140-400) Neutrophils (%) (Auto) 60 % (31-73) 74 % (31-73) Lymphocytes (%) (Auto) 26 % (24-48) 23 % (24-48) Monocytes (%) (Auto) 13 % (0-9) 3 % (0-9) Eosinophils (%) (Auto) 1 % (0-3) 0 % (0-3) Basophils (%) (Auto) 1 % (0-3) 1 % (0-3) Neutrophils # (Auto) 2.7 x10^3/uL (1.8-7.7) 2.7 x10^3/uL (1.8-7.7) Lymphocytes # (Auto) 1.2 x10^3/uL (1.0-4.8) 0.8 x10^3/uL (1.0-4.8) Monocytes # (Auto) 0.6 x10^3/uL (0.0-1.1) 0.1 x10^3/uL (0.0-1.1) Eosinophils # (Auto) 0.0 x10^3/uL (0.0-0.7) 0.0 x10^3/uL (0.0-0.7) Basophils # (Auto) 0.0 x10^3/uL (0.0-0.2) 0.0 x10^3/uL (0.0-0.2) Sodium Level 142 mmol/L (136-145) Potassium Level 3.8 mmol/L (3.5-5.1) Chloride Level 104 mmol/L (98-107) Carbon Dioxide Level 30 mmol/L (21-32) Anion Gap 8 (6-14) Blood Urea Nitrogen 11 mg/dL (7-20) Creatinine 1.1 mg/dL (0.6-1.0) Estimated GFR (Cockcroft-Gault) 58.4 BUN/Creatinine Ratio 10 (6-20) Glucose Level 100 mg/dL (70-99) Lactic Acid Level 2.3 mmol/L (0.4-2.0) 2.7 mmol/L (0.4-2.0) 2.6 mmol/L (0.4-2.0) 1.3 mmol/L (0.4-2.0) Calcium Level 8.9 mg/dL (8.5-10.1) Total Bilirubin 0.4 mg/dL (0.2-1.0) Aspartate Amino Transf (AST/SGOT) 28 U/L (15-37) Alanine Aminotransferase (ALT/SGPT) 15 U/L (14-59) Alkaline Phosphatase 104 U/L (46-116) Troponin I Quantitative < 0.017 ng/mL (0.000-0.055) < 0.017 ng/mL (0.000-0.055) AD-Idb-A-Type Natriuretic Peptide 510 pg/mL (0-449) Total Protein 7.2 g/dL (6.4-8.2) Albumin 3.0 g/dL (3.4-5.0) Albumin/Globulin Ratio 0.7 (1.0-1.7) Prolactin 49.7 ng/mL (4.8-23.3) Platelet Estimate Adequate (ADEQUATE) Large Platelets Few Giant Platelets Occ Triglycerides Level 32 mg/dL (0-150) Cholesterol Level 161 mg/dL (0-200) LDL Cholesterol, Calculated 81 mg/dL (0-100) VLDL Cholesterol, Calculated 6 mg/dL (0-40) Non-HDL Cholesterol Calculated 87 mg/dL (0-129) HDL Cholesterol 74 mg/dL (40-60) Cholesterol/HDL Ratio 2.2 Medications Active Scripts Medications Dose Route/Sig Max Daily Dose Days Date Category Namenda (Memantine Hcl) 10 Mg Tablet 1 Tab PO BID 03/21/19 Rx Nuedexta 20-10 Mg Capsule (Dextromethorphan Hbr/Quinidine) 1 Each Capsule 1 Tab PO DAILY 03/21/19 Reported Fluticasone Propionate Nasal [place] (Fluticasone Propionate) 16 Gm [place].susp 2 Sprays NS DAILY 03/21/19 Reported Doxycycline Hyclate 100 Mg Capsule 1 Cap PO BID 03/13/19 Rx Flovent 250MCG Diskus (Fluticasone Propionate) 250 Mcg Disk.w.dev 1 Puff INH BID 12/07/15 Rx Vitamin D-3 (Cholecalciferol (Vitamin D3)) 2,000 Unit Capsule 1,000 Unit PO HS 04/03/15 Reported Fish Oil ([place]-3 Fatty Acids) 300 Mg Capsule 300 Mg PO DAILY 04/03/15 Reported Duoneb 0.5-3(2.5) Mg/3 Ml (Albuterol/Ipratropium) 3 Ml Ampul.neb 3 Ml NEB PRN TID PRN 04/03/15 Reported Pravastatin Sodium 40 Mg Tablet 1 Tab PO HS 04/03/15 Reported Citalopram Hbr (Citalopram Hydrobromide) 10 Mg Tablet 1 Tab PO DAILY 04/03/15 Reported Donepezil Hcl 10 Mg Tablet 2 Tab PO DAILY 04/03/15 Reported Impression . COPD, stable WILL FOLLOW NO ADDITIONAL WORK NEEDED FROM PULMONARY STANDPOINT MO WHEELER MD Sep 17, 2019 14:20
[2019-09-17] MEDS: ATORVASTATIN CALCIUM 10 MG TABLET. PO SCH (20:54)
[2019-09-17] MEDS: CHOLECALCIFEROL (VITAMIN D3) 1,000 UNIT TABLET PO SCH (20:54)
[2019-09-18 03:55] VITALS: BP 151/74
[2019-09-18 07:00] VITALS: BP 166/79
[2019-09-18] MEDS: IPRATRPIUM/ALBUTEROL 0.5/2.5MG 3 ML NEBU. NEB SCH ×4 (07:39→19:45)
[2019-09-18] MEDS: BUDESONIDE 0.5 MG/2 ML NEBU. NEB SCH ×2 (07:39→19:45)
[2019-09-18] MEDS: DEXTROMETHORPHAN/QUINIDINE 20/10MG CAPSULE. PO SCH (08:28)
[2019-09-18] MEDS: OMEGA-3 FATTY ACIDS/FISH OIL 1,000 MG CAPSULE. PO SCH (08:28)
[2019-09-18] MEDS: CITALOPRAM 10 MG TABLET. PO SCH (08:28)
[2019-09-18] MEDS: MEMANTINE 10 MG TABLET. PO SCH ×2 (08:29→21:18)
[2019-09-18] MEDS: amLODIPine BESYLATE 5 MG TABLET PO SCH (08:29)
[2019-09-18] MEDS: methylPREDNISolone SOD SUCC PF 40 MG/ML VIAL. IV SCH ×2 (08:29→21:21)
[2019-09-18] MEDS: FLUTICASONE 50MCG/NASAL SPRAY 16GM BOTTLE. NS SCH (08:29)
--- NOTE | 2019-09-18 10:14 | PDOC ---
PULMONARY PROGRESS NOTES Subjective The patient is a 74-year-old that is demente. She had a syncopal episode at home, not associated with shortness of air. There was no reported fever, chills, nausea, vomiting, diarrhea. The patient was not reporting being short of breath prior to this admission. She does have underlying COPD, tobacco dependent, in remission. There has been no respiratory change since yesterday. Vitals Vital Signs Date Time Temp Pulse Resp B/P (MAP) Pulse Ox O2 Delivery O2 Flow Rate FiO2 09/18/19 08:29 87 166/79 09/18/19 08:00 Room Air 1.0 09/18/19 07:41 92 09/18/19 07:00 98.5 20 98.5 ROS: No Nausea, No Chest Pain, No Abdominal Pain, No Increase Cough General: Alert Lungs: Clear, Other (slightly diminished diffusely without wheezing or rales) Cardiovascular: S1, S2 Abdomen: Soft, Non-tender Neuro Exam: Alert Extremities: No Edema Medications Active Scripts Medications Dose Route/Sig Max Daily Dose Days Date Category Namenda (Memantine Hcl) 10 Mg Tablet 1 Tab PO BID 03/21/19 Rx Nuedexta 20-10 Mg Capsule (Dextromethorphan Hbr/Quinidine) 1 Each Capsule 1 Tab PO DAILY 03/21/19 Reported Fluticasone Propionate Nasal [place] (Fluticasone Propionate) 16 Gm [place].susp 2 Sprays NS DAILY 03/21/19 Reported Doxycycline Hyclate 100 Mg Capsule 1 Cap PO BID 03/13/19 Rx Flovent 250MCG Diskus (Fluticasone Propionate) 250 Mcg Disk.w.dev 1 Puff INH BID 12/07/15 Rx Vitamin D-3 (Cholecalciferol (Vitamin D3)) 2,000 Unit Capsule 1,000 Unit PO HS 04/03/15 Reported Fish Oil ([place]-3 Fatty Acids) 300 Mg Capsule 300 Mg PO DAILY 04/03/15 Reported Duoneb 0.5-3(2.5) Mg/3 Ml (Albuterol/Ipratropium) 3 Ml Ampul.neb 3 Ml NEB PRN TID PRN 04/03/15 Reported Pravastatin Sodium 40 Mg Tablet 1 Tab PO HS 04/03/15 Reported Citalopram Hbr (Citalopram Hydrobromide) 10 Mg Tablet 1 Tab PO DAILY 04/03/15 Reported Donepezil Hcl 10 Mg Tablet 2 Tab PO DAILY 04/03/15 Reported Impression . COPD, stable WILL FOLLOW NO ADDITIONAL WORK NEEDED FROM PULMONARY STANDPOINT Plan . Continue bronchodilators. will follow. MO WHEELER MD Sep 18, 2019 10:14
[2019-09-18 11:18] VITALS: BP 135/64
--- NOTE | 2019-09-18 12:46 | PDOC ---
PROGRESS NOTES Chief Complaint Chief Complaint A/P: AECOPD - nebs, steroids Syncope - likely vasovagal and does have hx of this. Possibly cough induced. I have advised to stop donepezil as she has been on it more than 2 years and has now had multiple syncopal episodes without any other clear etiology Abnormal EKG - elevated BP, criteria for LVH? Alzheimers dementia HTN - will monitor, goal BP not met, however, her amlodipine was stopped a year ago 2/2 symptomatic hypotension. Home BP recordings consistently in the 110s systolic. Will compare home cuff to ours. HLD History of Present Illness History of Present Illness Ms Holland is a 74-year-old female w/ PMHx Dementia, COPD, previous tobacco abuse, depression, hyperlipidemia, hypertension, anxiety who p/w a syncopal episode, lasted about 4 minutes. Also notes productive cough. Consulted Cardiology and Neurology. 09/16: BP dropped from 185 systolic to 98 systolic after amlodipine adm inistration this morning and she symptomatically became more confused. Plan for echo this morning. Will stop BP meds. 09/17: BP 188 systolic, given lower amlodipine dose with good effect today. Holding aricept. D/w bedside. BP has been holding in 130s systolic. Still on O2 with cough. No further syncopal episodes. Working with therapy currently. May need placement, will reassess in AM. Vitals Vitals Vital Signs Date Time Temp Pulse Resp B/P (MAP) Pulse Ox O2 Delivery O2 Flow Rate FiO2 09/18/19 11:55 Room Air 09/18/19 11:18 97.8 71 16 135/64 (87) 92 1.0 97.8 Physical Exam General: Alert, Cooperative, No acute distress Heart: Regular rate (SR), Normal S1, Normal S2, Other (2/6 systolic murmur to LLS border) Lungs: Clear, Other (slightly diminished diffusely without wheezing or rales) Abdomen: Soft, No tenderness Extremities: No cyanosis, No edema Skin: No breakdown, No significant lesion Assessment and Plan Assessmemt and Plan Problems Medical Problems: (1) Acute exacerbation of chronic obstructive pulmonary disease (COPD) Status: Acute (2) Alzheimer's dementia Status: Chronic (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 Labs Microbiology 09/15/19 Blood Culture - Preliminary, Resulted NO GROWTH AFTER 2 DAYS Medications Current Medications Albuterol/ Ipratropium (Duoneb) 3 ml 1X ONCE NEB Last administered on 09/15/19at 13:44; Start 09/15/19 at 13:45; Stop 09/15/19 at 13:46; Status DC Sodium Chloride 1,000 ml @ 1,000 mls/hr 1X ONCE IV Last administered on 09/15/19at 15:45; Start 09/15/19 at 15:30; Stop 09/15/19 at 16:29; Status DC Methylprednisolone Sodium Succinate (SOLU-Medrol 125MG VIAL) 62.5 mg 1X ONCE IV Last administered on 09/15/19at 15:54; Start 09/15/19 at 16:00; Stop 09/15/19 at 16:01; Status DC Methylprednisolone Sodium Succinate (SOLU-Medrol 40MG VIAL) 40 mg STK-MED ONCE .ROUTE ; Start 09/15/19 at 15:52; Stop 09/15/19 at 15:52; Status DC Albuterol/ Ipratropium (Duoneb) 3 ml RTQID NEB Last administered on 09/15/19at 16:48; Start 09/15/19 at 16:00; Stop 09/15/19 at 17:33; Status DC Methylprednisolone Sodium Succinate (SOLU-Medrol 125MG VIAL) 62.5 mg Q8HRS IV ; Start 09/15/19 at 22:00; Stop 09/15/19 at 17:58; Status DC Influenza Virus Vaccine Quadrival (Afluria Quad 2019-20 (3yr Up) Syringe) 0.5 ml ONCE ONCE VAX IM Last administered on 09/17/19at 08:59; Start 09/15/19 at 17:15; Stop 09/15/19 at 17:18; Status DC Citalopram Hydrobromide (CeleXA) 10 mg DAILY PO Last administered on 09/18/19at 08:28; Start 09/16/19 at 09:00 Donepezil HCl (Aricept) 20 mg DAILY PO Last administered on 09/17/19at 08:57; Start 09/16/19 at 09:00; Stop 09/17/19 at 11:00; Status DC Fluticasone Propionate (Flonase) 2 spray DAILY NS Last administered on 09/18/19 08:29; Start 09/16/19 at 09:00 Albuterol Sulfate (Ventolin Neb Soln) 2.5 mg PRN TID PRN NEB SHORTNESS OF BREATH; Start 09/15/19 at 17:45 Memantine (Namenda) 10 mg BID PO Last administered on 09/18/19 08:29; Start 09/15/19 at 21:00 Vitamin D (Vitamin D3) 1,000 unit QHS PO Last administered on 09/17/19 20:54; Start 09/15/19 at 21:00 Dextromethorphan/ Quinidine (Nuedexta 20-10 Mg) 1 cap DAILY PO Last admin istered on 09/18/19 08:28; Start 09/16/19 at 11:00 Budesonide (Pulmicort) 0.5 mg RTBID NEB Last administered on 09/18/19 07:39; Start 09/15/19 at 20:00 Fish Oil (Fish Oil) 1,000 mg DAILY PO Last administered on 09/18/19 08:28; Start 09/16/19 at 09:00 Atorvastatin Calcium (Lipitor) 10 mg QHS PO Last administered on 09/17/19 20:54; Start 09/15/19 at 21:00 Amlodipine Besylate (Norvasc) 5 mg DAILY PO Last administered on 09/16/19 08:19; Start 09/16/19 at 09:00; Stop 09/16/19 at 10:21; Status DC Hydralazine HCl (Apresoline Inj) 10 mg PRN Q4HRS PRN IVP ELEVATED BP, SEE COMMENTS Last administered on 09/16/19 08:11; Start 09/15/19 at 17:30; Stop 09/16/19 at 10:21; Status DC Albuterol/ Ipratropium (Duoneb) 3 ml RTQID NEB Last administered on 09/18/19 11:53; Start 09/15/19 at 20:00 Methylprednisolone Sodium Succinate (SOLU-Medrol 40MG VIAL) 40 mg Q12HR IV Last administered on 09/18/19 08:29; Start 09/15/19 at 21:00 Hydralazine HCl (Apresoline) 25 mg PRN TID PRN PO HYPERTENSION Last administered on 09/17/19at 23:03; Start 09/16/19 at 18:00 Amlodipine Besylate (Norvasc) 5 mg DAILY PO Last administered on 09/18/19 08:29; Start 09/16/19 at 18:30 Active Scripts Active Namenda (Memantine Hcl) 10 Mg Tablet 1 Tab PO BID Doxycycline Hyclate 100 Mg Capsule 1 Cap PO BID Flovent 250MCG Diskus (Fluticasone Propionate) 250 Mcg Disk.w.dev 1 Puff INH BID Reported Nuedexta 20-10 Mg Capsule (Dextromethorphan Hbr/Quinidine) 1 Each Capsule 1 Tab PO DAILY Fluticasone Propionate Nasal [place] (Fluticasone Propionate) 16 Gm [place].susp 2 Sprays NS DAILY Vitamin D-3 (Cholecalciferol (Vitamin D3)) 2,000 Unit Capsule 1,000 Unit PO HS Fish Oil ([place]-3 Fatty Acids) 300 Mg Capsule 300 Mg PO DAILY Duoneb 0.5-3(2.5) Mg/3 Ml (Albuterol/Ipratropium) 3 Ml Ampul.neb 3 Ml NEB PRN TID PRN Pravastatin Sodium 40 Mg Tablet 1 Tab PO HS Citalopram Hbr (Citalopram Hydrobromide) 10 Mg Tablet 1 Tab PO DAILY Donepezil Hcl 10 Mg Tablet 2 Tab PO DAILY Vitals/I & O Vital Sign - Last 24 Hours 09/17/19 09/17/19 09/17/19 09/17/19 14:28 16:27 19:15 19:20 Temp 98.1 98.2 98.1 98.2 Pulse 75 72 Resp 20 22 B/P (MAP) 140/53 (82) 140/63 (88) Pulse Ox 95 93 O2 Delivery Nasal Cannula Nasal Cannula Nasal Cannula Room Air O2 Flow Rate 2.0 0.5 1.0 09/17/19 09/17/19 09/17/19 09/17/19 20:09 22:55 23:03 23:24 Temp 98.2 98.2 Pulse 65 66 Resp 24 B/P (MAP) 180/62 (101) 163/77 163/77 (105) Pulse Ox 95 95 O2 Delivery Nasal Cannula Nasal Cannula O2 Flow Rate 1.0 1.0 09/18/19 09/18/19 09/18/19 09/18/19 03:55 07:00 07:41 08:00 Temp 98.3 98.5 98.3 98.5 Pulse 83 87 Resp 24 20 B/P (MAP) 151/74 (99) 166/79 (108) Pulse Ox 96 95 92 O2 Delivery Nasal Cannula Nasal Cannula Room Air Room Air O2 Flow Rate 1.0 1.0 1.0 09/18/19 09/18/19 09/18/19 08:29 11:18 11:55 Temp 97.8 97.8 Pulse 87 71 Resp 16 B/P (MAP) 166/79 135/64 (87) Pulse Ox 92 O2 Delivery Nasal Cannula Room Air O2 Flow Rate 1.0 Intake and Output 09/17/19 09/17/19 09/18/19 15:00 23:00 07:00 Intake Total 400 ml 500 ml 50 ml Output Total 0 ml Balance 400 ml 500 ml 50 ml AZ KIMBALL MD Sep 18, 2019 12:46
[2019-09-18 15:00] VITALS: BP 140/68
[2019-09-18 19:00] VITALS: BP 137/67
[2019-09-18] MEDS: ATORVASTATIN CALCIUM 10 MG TABLET. PO SCH (21:18)
[2019-09-18] MEDS: CHOLECALCIFEROL (VITAMIN D3) 1,000 UNIT TABLET PO SCH (21:18)
[2019-09-18 23:00] VITALS: BP 124/72
[2019-09-19 03:00] VITALS: BP 145/73
[2019-09-19] MEDS: BUDESONIDE 0.5 MG/2 ML NEBU. NEB SCH (06:10)
[2019-09-19] MEDS: IPRATRPIUM/ALBUTEROL 0.5/2.5MG 3 ML NEBU. NEB SCH ×3 (06:10→14:55)
[2019-09-19 07:00] VITALS: BP 180/87
--- NOTE | 2019-09-19 08:38 | PDOC ---
PULMONARY PROGRESS NOTES Subjective The patient is a 74-year-old that is demente. She had a syncopal episode at home, not associated with shortness of air. There was no reported fever, chills, nausea, vomiting, diarrhea. The patient was not reporting being short of breath prior to this admission. She does have underlying COPD, tobacco dependent, in remission. There has been no respiratory change since yesterday. Vitals Vital Signs Date Time Temp Pulse Resp B/P (MAP) Pulse Ox O2 Delivery O2 Flow Rate FiO2 09/19/19 07:00 98.1 77 18 180/87 (118) 91 Nasal Cannula 2.0 98.1 ROS: No Nausea, No Chest Pain, No Abdominal Pain, No Increase Cough General: Alert Lungs: Clear, Other (slightly diminished diffusely without wheezing or rales) Cardiovascular: S1, S2 Abdomen: Soft, Non-tender Neuro Exam: Alert Extremities: No Edema Medications Active Scripts Medications Dose Route/Sig Max Daily Dose Days Date Category Namenda (Memantine Hcl) 10 Mg Tablet 1 Tab PO BID 03/21/19 Rx Nuedexta 20-10 Mg Capsule (Dextromethorphan Hbr/Quinidine) 1 Each Capsule 1 Tab PO DAILY 03/21/19 Reported Fluticasone Propionate Nasal [place] (Fluticasone Propionate) 16 Gm [place].susp 2 Sprays NS DAILY 03/21/19 Reported Doxycycline Hyclate 100 Mg Capsule 1 Cap PO BID 03/13/19 Rx Flovent 250MCG Diskus (Fluticasone Propionate) 250 Mcg Disk.w.dev 1 Puff INH BID 12/07/15 Rx Vitamin D-3 (Cholecalciferol (Vitamin D3)) 2,000 Unit Capsule 1,000 Unit PO HS 04/03/15 Reported Fish Oil ([place]-3 Fatty Acids) 300 Mg Capsule 300 Mg PO DAILY 04/03/15 Reported Duoneb 0.5-3(2.5) Mg/3 Ml (Albuterol/Ipratropium) 3 Ml Ampul.neb 3 Ml NEB PRN TID PRN 04/03/15 Reported Pravastatin Sodium 40 Mg Tablet 1 Tab PO HS 04/03/15 Reported Citalopram Hbr (Citalopram Hydrobromide) 10 Mg Tablet 1 Tab PO DAILY 04/03/15 Reported Donepezil Hcl 10 Mg Tablet 2 Tab PO DAILY 04/03/15 Reported Impression . COPD, stable WILL FOLLOW NO ADDITIONAL WORK NEEDED FROM PULMONARY STANDPOINT Plan . Continue bronchodilators. will follow. SAVI OCONNOR MD Sep 19, 2019 08:38
--- NOTE | 2019-09-19 08:47 | CARD ---
MR#: [id number] Date of Study: 09/16/2019 Ordering Physician: GRAHAM ISAACS, Referring Physician: GRAHAM ISAACS, Favio: Marii Mcdaniels APPROVED REPORT EXAM: Two-dimensional and M-mode echocardiogram with Doppler and color Doppler. Other Information Quality : AverageHR: 83bpm Technically limited study due to body habitus. INDICATION Syncope 2D DIMENSIONS RVDd2.4 (2.9-3.5cm)Left Atrium(2D)2.4 (1.6-4.0cm) IVSd1.0 (0.7-1.1cm)Aortic Root(2D)2.0 (2.0-3.7cm) LVDd3.1 (3.9-5.9cm)LVOT Diameter1.5 (1.8-2.4cm) PWd1.1 (0.7-1.1cm)LVDs1.6 (2.5-4.0cm) FS (%) 47.9 %SV31.6 ml LVEF(%)80.6 (>50%) Aortic Valve AoV Peak [place].111.0cm/sAoV VTI19.8cm AO Peak GR.4.9mmHgLVOT Peak [place].97.5cm/s AO Mean GR.4mmHgAVA (VMAX)1.65cm2 Mitral Valve MV E Cdkjyvxd96.3cm/sMV DECEL [id number] MV A Zedsqohu51.9cm/sE/A Ratio0.8 Pulmonary Valve PV Peak Bofupvuv541.4cm/s Tricuspid Valve TR P. Psxxleue543zq/sTR Peak Gr.30mmHg LEFT VENTRICLE The left ventricle is normal size. There is severe concentric left ventricular hypertrophy. The left ventricular systolic function is normal and the ejection fraction is within normal range. The Ejectio n Fraction is 60-65%. There is normal LV segmental wall motion. Transmitral Doppler flow pattern is G rade I-abnormal relaxation pattern. RIGHT VENTRICLE The right ventricle is normal size. There is normal right ventricular wall thickness. The right ventr icular systolic function is normal. ATRIA The left atrium size is normal. The right atrium size is normal. The interatrial septum is intact wit h no evidence for an atrial septal defect or patent foramen ovale as noted on 2-D or Doppler imaging. AORTIC VALVE The aortic valve is thickened but opens well. Doppler and Color Flow revealed no significant aortic r egurgitation. There is no significant aortic valvular stenosis. MITRAL VALVE The mitral valve is normal in structure and function. There is no evidence of mitral valve prolapse. There is no mitral valve stenosis. Doppler and Color Flow revealed no mitral valve regurgitation note d. TRICUSPID VALVE The tricuspid valve is normal in structure and function. Doppler and Color Flow revealed mild tricusp id regurgitation. There is no tricuspid valve stenosis. PULMONIC VALVE The pulmonic valve is not well visualized. Doppler and Color Flow revealed no pulmonic valvular regur gitation. There is no pulmonic valvular stenosis. GREAT VESSELS The aortic root is normal in size. The ascending aorta is normal in size. The IVC is normal in size a nd collapses >50% with inspiration. PERICARDIAL EFFUSION There is no evidence of significant pericardial effusion. Critical Notification Critical Value: No <Conclusion> The left ventricular systolic function is normal and the ejection fraction is within normal range. Th e Ejection Fraction is 60-65%. There is normal LV segmental wall motion. There is severe concentric left ventricular hypertrophy. Signed by : Jose De Jesus Samson, Electronically Approved : 09/19/2019 08:47:01
[2019-09-19] MEDS: CITALOPRAM 10 MG TABLET. PO SCH (09:04)
[2019-09-19] MEDS: MEMANTINE 10 MG TABLET. PO SCH (09:04)
[2019-09-19] MEDS: OMEGA-3 FATTY ACIDS/FISH OIL 1,000 MG CAPSULE. PO SCH (09:04)
[2019-09-19] MEDS: DEXTROMETHORPHAN/QUINIDINE 20/10MG CAPSULE. PO SCH (09:05)
[2019-09-19] MEDS: amLODIPine BESYLATE 5 MG TABLET PO SCH (09:05)
[2019-09-19] MEDS: FLUTICASONE 50MCG/NASAL SPRAY 16GM BOTTLE. NS SCH (09:06)
[2019-09-19] MEDS: methylPREDNISolone SOD SUCC PF 40 MG/ML VIAL. IV SCH (09:06)
--- NOTE | 2019-09-19 10:39 | PDOC ---
PROGRESS NOTES Chief Complaint Chief Complaint A/P: AECOPD - nebs, steroids Syncope - likely vasovagal and does have hx of this. Possibly cough induced. I have advised to stop donepezil as she has been on it more than 2 years and has now had multiple syncopal episodes without any other clear etiology Abnormal EKG - elevated BP, criteria for LVH? Alzheimers dementia HTN - will monitor, goal BP not met, however, her amlodipine was stopped a year ago 2/2 symptomatic hypotension. Home BP recordings consistently in the 110s systolic. Will compare home cuff to ours. HLD History of Present Illness History of Present Illness Ms Holland is a 74-year-old female w/ PMHx Dementia, COPD, previous tobacco abuse, depression, hyperlipidemia, hypertension, anxiety who p/w a syncopal episode, lasted about 4 minutes. Also notes productive cough. Consulted Cardiology and Neurology. 09/16: BP dropped from 185 systolic to 98 systolic after amlodipine adm inistration this morning and she symptomatically became more confused. Plan for echo this morning. Will stop BP meds. 09/17: BP 188 systolic, given lower amlodipine dose with good effect today. Holding aricept. D/w bedside. 09/18: BP has been holding in 130s systolic. Still on O2 with cough. No further syncopal episodes. Working with therapy currently. Still on O2, her BP has been stable. Still has cough. Orthostatics negative today. ECHO The left ventricular systolic function is normal and the ejection fraction is within normal range. The Ejection Fraction is 60-65%. There is normal LV segmental wall motion. There is severe concentric left ventricular hypertrophy. Plan: Will need 6 minute walk Needs Alzheimer association info Safer probably for home health as she may have mental decline if she had skilled placement, have spoken with in depth Vitals Vitals Vital Signs Date Time Temp Pulse Resp B/P (MAP) Pulse Ox O2 Delivery O2 Flow Rate FiO2 09/19/19 09:05 75 09/19/19 08:00 Room Air 2.0 09/19/19 07:00 98.1 18 180/87 (118) 91 98.1 Physical Exam General: Alert, Cooperative, No acute distress Heart: Regular rate (SR), Normal S1, Normal S2, Other (2/6 systolic murmur to LLS border) Lungs: Clear, Other (slightly diminished diffusely without wheezing or rales) Abdomen: Soft, No tenderness Extremities: No cyanosis, No edema Skin: No breakdown, No significant lesion Assessment and Plan Assessmemt and Plan Problems Medical Problems: (1) Acute exacerbation of chronic obstructive pulmonary disease (COPD) Status: Acute (2) Alzheimer's dementia Status: Chronic (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 Labs Microbiology 09/15/19 Blood Culture - Preliminary, Resulted NO GROWTH AFTER 3 DAYS Medications Current Medications Albuterol/ Ipratropium (Duoneb) 3 ml 1X ONCE NEB Last administered on 09/15/19at 13:44; Start 09/15/19 at 13:45; Stop 09/15/19 at 13:46; Status DC Sodium Chloride 1,000 ml @ 1,000 mls/hr 1X ONCE IV Last administered on 09/15/19at 15:45; Start 09/15/19 at 15:30; Stop 09/15/19 at 16:29; Status DC Methylprednisolone Sodium Succinate (SOLU-Medrol 125MG VIAL) 62.5 mg 1X ONCE IV Last administered on 09/15/19at 15:54; Start 09/15/19 at 16:00; Stop 09/15/19 at 16:01; Status DC Methylprednisolone Sodium Succinate (SOLU-Medrol 40MG VIAL) 40 mg STK-MED ONCE .ROUTE ; Start 09/15/19 at 15:52; Stop 09/15/19 at 15:52; Status DC Albuterol/ Ipratropium (Duoneb) 3 ml RTQID NEB Last administered on 09/15/19at 16:48; Start 09/15/19 at 16:00; Stop 09/15/19 at 17:33; Status DC Methylprednisolone Sodium Succinate (SOLU-Medrol 125MG VIAL) 62.5 mg Q8HRS IV ; Start 09/15/19 at 22:00; Stop 09/15/19 at 17:58; Status DC Influenza Virus Vaccine Quadrival (Afluria Quad 2019-20 (3yr Up) Syringe) 0.5 ml ONCE ONCE VAX IM Last administered on 09/17/19at 08:59; Start 09/15/19 at 17:15; Stop 09/15/19 at 17:18; Status DC Citalopram Hydrobromide (CeleXA) 10 mg DAILY PO Last administered on 09/19/19 09:04; Start 09/16/19 at 09:00 Donepezil HCl (Aricept) 20 mg DAILY PO Last administered on 09/17/19 08:57; Start 09/16/19 at 09:00; Stop 09/17/19 at 11:00; Status DC Fluticasone Propionate (Flonase) 2 spray DAILY NS Last administered on 09/19/19 09:06; Start 09/16/19 at 09:00 Albuterol Sulfate (Ventolin Neb Soln) 2.5 mg PRN TID PRN NEB SHORTNESS OF BREATH; Start 09/15/19 at 17:45 Memantine (Namenda) 10 mg BID PO Last administered on 09/19/19 09:04; Start 09/15/19 at 21:00 Vitamin D (Vitamin D3) 1,000 unit QHS PO Last administered on 09/18/19 21:18; Start 09/15/19 at 21:00 Dextromethorphan/ Quinidine (Nuedexta 20-10 Mg) 1 cap DAILY PO Last administered on 09/19/19 09:05; Start 09/16/19 at 11:00 Budesonide (Pulmicort) 0.5 mg RTBID NEB Last administered on 09/19/19 06:10; Start 09/15/19 at 20:00 Fish Oil (Fish Oil) 1,000 mg DAILY PO Last administered on 09/19/19 09:04; Start 09/16/19 at 09:00 Atorvastatin Calcium (Lipitor) 10 mg QHS PO Last administered on 09/18/19 21:18; Start 09/15/19 at 21:00 Amlodipine Besylate (Norvasc) 5 mg DAILY PO Last administered on 09/16/19 08:19; Start 09/16/19 at 09:00; Stop 09/16/19 at 10:21; Status DC Hydralazine HCl (Apresoline Inj) 10 mg PRN Q4HRS PRN IVP ELEVATED BP, SEE COMMENTS Last administered on 09/16/19at 08:11; Start 09/15/19 at 17:30; Stop 09/16/19 at 10:21; Status DC Albuterol/ Ipratropium (Duoneb) 3 ml RTQID NEB Last administered on 09/19/19at 06:10; Start 09/15/19 at 20:00 Methylprednisolone Sodium Succinate (SOLU-Medrol 40MG VIAL) 40 mg Q12HR IV Last administered on 09/19/19at 09:06; Start 09/15/19 at 21:00 Hydralazine HCl (Apresoline) 25 mg PRN TID PRN PO HYPERTENSION Last administered on 09/17/19at 23:03; Start 09/16/19 at 18:00 Amlodipine Besylate (Norvasc) 5 mg DAILY PO Last administered on 09/19/19at 09:05; Start 09/16/19 at 18:30 Active Scripts Active Namenda (Memantine Hcl) 10 Mg Tablet 1 Tab PO BID Doxycycline Hyclate 100 Mg Capsule 1 Cap PO BID Flovent 250MCG Diskus (Fluticasone Propionate) 250 Mcg Disk.w.dev 1 Puff INH BID Reported Nuedexta 20-10 Mg Capsule (Dextromethorphan Hbr/Quinidine) 1 Each Capsule 1 Tab PO DAILY Fluticasone Propionate Nasal [place] (Fluticasone Propionate) 16 Gm [place].susp 2 Sprays NS DAILY Vitamin D-3 (Cholecalciferol (Vitamin D3)) 2,000 Unit Capsule 1,000 Unit PO HS Fish Oil ([place]-3 Fatty Acids) 300 Mg Capsule 300 Mg PO DAILY Duoneb 0.5-3(2.5) Mg/3 Ml (Albuterol/Ipratropium) 3 Ml Ampul.neb 3 Ml NEB PRN TID PRN Pravastatin Sodium 40 Mg Tablet 1 Tab PO HS Citalopram Hbr (Citalopram Hydrobromide) 10 Mg Tablet 1 Tab PO DAILY Donepezil Hcl 10 Mg Tablet 2 Tab PO DAILY Vitals/I & O Vital Sign - Last 24 Hours 09/18/19 09/18/19 09/18/19 09/18/19 11:18 11:55 15:00 15:58 Temp 97.8 98.1 97.8 98.1 Pulse 71 74 Resp 16 18 B/P (MAP) 135/64 (87) 140/68 (92) Pulse Ox 92 93 93 O2 Delivery Nasal Cannula Room Air Nasal Cannula Room Air O2 Flow Rate 1.0 1.0 09/18/19 09/18/19 09/18/19 09/18/19 19:00 19:45 19:47 20:00 Temp 99.0 99.0 Pulse 88 Resp 20 B/P (MAP) 137/67 (90) Pulse Ox 91 96 96 O2 Delivery Nasal Cannula Room Air Room Air Room Air O2 Flow Rate 1.0 09/18/19 09/19/19 09/19/19 09/19/19 23:00 03:00 06:12 06:12 Temp 98.5 98.4 98.5 98.4 Pulse 76 78 Resp 20 24 B/P (MAP) 124/72 (89) 145/73 (97) Pulse Ox 88 90 96 96 O2 Delivery Nasal Cannula Nasal Cannula Nasal Cannula Nasal Cannula O2 Flow Rate 1.0 1.0 2.0 2.0 09/19/19 09/19/19 09/19/19 07:00 08:00 09:05 Temp 98.1 98.1 Pulse 77 75 Resp 18 B/P (MAP) 180/87 (118) Pulse Ox 91 O2 Delivery Nasal Cannula Room Air O2 Flow Rate 2.0 2.0 Intake and Output 09/18/19 09/18/19 09/19/19 15:00 23:00 07:00 Intake Total 240 ml 420 ml 100 ml Balance 240 ml 420 ml 100 ml AZ KIMBALL MD Sep 19, 2019 10:39
[2019-09-19 11:00] VITALS: BP 155/75
[2019-09-19 11:05] VITALS: BP 183/84
[2019-09-19 11:10] VITALS: BP 175/86
[2019-09-19] MEDS ORDERED: AMLO5TAB10 PO (13:18)
[2019-09-19] MEDS ORDERED: HYDR-2868 PO (13:18)
[2019-09-19] MEDS ORDERED: PRED20TA PO (13:18)
--- NOTE | 2019-09-19 13:21 | SNU/HH DC ---
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 Medical Complications: COPD, Dementia, Falls, HTN Mcc For: Assess & Educate Safety, Assess/Skilled Observatio, Medication Management RN For Eval/Treatment: Yes Physical Therapy For: Evalulation/Treatment Occupational Therapy For: Evaluation/Treatment Home Health Aide For: Self-care JANITOR CARETAKER For: Community Resources Pt Meets Homebound Status: Poor coordination w/ amb., Fatigue w/ amb., Frequent falls w/ injury, Poor cognition, Psychological condition POST DISCHARGE ORDERS: Activity Instructions for Disc: Activity as tolerated Weight Bearing Status after Di: As tolerated DIET AFTER DISCHARGE: Cardiac CHECKS AFTER DISCHARGE: Checks after discharge: Check blood press - daily, Check your Temp as needed TREATMENT/EQUIPMENT ORDERS: Adaptive Equipment Issued: None Discharge Respiratory Equipmen: Oxygen (2L) CERTIFICATION STATEMENT: Certification Statement: Certification Statement: Based on the above finding, I certify that this patient is confined to the home and needs intermittent retirement care, physical therapy and/or speech therapy, or continues to need occupational therapy.~ This patient is under my care, and I have initiated the establishment of the plan of care.~ This patient will be followed by myself or a community physician who will periodically review the plan of care. Home Meds Active Scripts Hydralazine Hcl (HYDRALAZINE HCL) 25 Mg Tablet, 25 MG PO PRN TID PRN for HYPERTENSION for 30 Days, #30 TAB Take if systolic blood pressure is >150mmHg after already taking amlodipine. Prov:AZ KIMBALL MD 09/19/19 Prednisone (PREDNISONE) 20 Mg Tablet, 1 TAB PO DAILY for COPD for 5 Days, #5 TAB Prov:AZ KIMBALL MD 09/19/19 Amlodipine Besylate (AMLODIPINE BESYLATE) 5 Mg Tablet, 5 MG PO DAILY for HTN for 30 Days, #30 TAB 2 Refills Prov:AZ KIMBALL MD 09/19/19 Memantine Hcl (NAMENDA) 10 Mg Tablet, 1 TAB PO BID for memory, #60 TAB 5 Refills Prov:Agustin LOPEZ MD 03/21/19 Fluticasone Propionate (FLOVENT 250MCG DISKUS) 250 Mcg Disk.w.dev, 1 PUFF INH BID, #1 Prov:Agustin LOPEZ MD 12/07/15 Reported Medications Dextromethorphan Hbr/Quinidine (NUEDEXTA 20-10 MG CAPSULE) 1 Each Capsule, 1 TAB PO DAILY for unknown 03/21/19 Fluticasone Propionate (FLUTICASONE PROPIONATE NASAL SPRAY) 16 Gm [place].susp, 2 SPRAYS NS DAILY for congestion 03/21/19 Cholecalciferol (Vitamin D3) (VITAMIN D-3) 2,000 Unit Capsule, 1000 UNIT PO HS 04/03/15 [place]-3 Fatty Acids (FISH OIL) 300 Mg Capsule, 300 MG PO DAILY 04/03/15 Ipratropium/Albuterol Sulfate (DUONEB 0.5-3(2.5) MG/3 ML) 3 Ml Ampul.neb, 3 ML NEB PRN TID PRN for SHORTNESS OF BREATH 04/03/15 Pravastatin Sodium (PRAVASTATIN SODIUM) 40 Mg Tablet, 1 TAB PO HS, #90 TAB 1 Refill 04/03/15 Discontinued Reported Medications Citalopram Hydrobromide (CITALOPRAM HBR) 10 Mg Tablet, 1 TAB PO DAILY, #30 TAB 3 Refills 04/03/15 Donepezil Hcl (DONEPEZIL HCL) 10 Mg Tablet, 2 TAB PO DAILY, #90 TAB 1 Refill 04/03/15 Discontinued Scripts Doxycycline Hyclate (DOXYCYCLINE HYCLATE) 100 Mg Capsule, 1 CAP PO BID, #20 CAP Prov:CUAUHTEMOC TIMMONS DO 03/13/19 AZ KIMBALL MD Sep 19, 2019 13:21
[2019-09-19] MEDS ORDERED: predniSONE 20 MG TABLET PO SCH (13:30)
--- NOTE | 2019-09-19 15:03 | NUR ---
SS following up with discharge planning. Per Dr. Olsen request SS provided pt and pt's spouse with information on [employer]. ABG's currently being tested on room air to assess if pt is in need of oxygen. SS will order if needed. Pt will discharge today with spouse and daughter. Pt's spouse reported that he and his daughter will transport pt to home. Pt's RN notified.
[2019-09-19 15:28] LABS: BASE EXCESS ABG 2 mmol/L (-3-3); HCO3 ABG 25 mmol/L (21-28); PCO2 ABG 33 mmHg (35-46); PO2 ABG 55 mmHg (65-108); SAT O2 ABG 89 % (92-99)
[2019-09-19 15:31] LABS: FIO2 ABG 21
--- NOTE | 2019-09-19 16:00 | NUR ---
SS following up with discharge planning. Pt qualified for oxygen with ABG's. SS received script for oxygen. SS phoned and faxed oxygen order and referral to [facility], ; fax [phone]. Oxygen tank provided to pt's RN for discharge to home.
--- NOTE | 2019-09-19 17:25 | NUR ---
Discharge: Teaching verbal and written. reviewed medication, follow-up, syncope, hypertension, ect. Patients and daughter verbalized understanding. Oxygen tank given at discharge. All belongings with patient. Patient assisted off of unit via wheelchair accompanied by family and nurse.
--- NOTE | 2019-09-19 20:02 | PDOC3 ---
Discharge Summary Visit Information Date of Admission: Sep 15, 2019 Date of Discharge: Sep 19, 2019 Admitting Diagnosis: Syncope Final Diagnosis Problems Medical Problems: (1) Acute exacerbation of chronic obstructive pulmonary disease (COPD) Status: Acute (2) Alzheimer's dementia Status: Chronic (3) HLP (hyperkeratosis lenticularis perstans) Status: Chronic (4) HTN (hypertension) Status: Chronic (5) Syncope Status: Acute Brief Hospital Course Allergies Allergies Coded Allergies Type Severity Reaction Last Updated Verified Sulfa (Sulfonamide Antibiotics) Allergy Intermediate 04/02/15 Yes clarithromycin Allergy Intermediate 04/02/15 Yes gatifloxacin Allergy Intermediate 04/02/15 Yes penicillin G Allergy Intermediate 04/02/15 Yes Vital Signs Vital Signs Date Time Temp Pulse Resp B/P (MAP) Pulse Ox O2 Delivery O2 Flow Rate FiO2 09/19/19 14:56 95 Nasal Cannula 2.0 09/19/19 11:10 84 175/86 (115) 09/19/19 11:00 98.2 18 98.2 Lab Results Laboratory Tests Test 09/19/19 15:27 O2 Saturation 89 % (92-99) Arterial Blood pH 7.49 (7.35-7.45) Arterial Blood pCO2 at Patient Temp 33 mmHg (35-46) Arterial Blood pO2 at Patient Temp 55 mmHg (65-108) Arterial Blood HCO3 25 mmol/L (21-28) Arterial Blood Base Excess 2 mmol/L (-3-3) FiO2 21 Laboratory Tests Test 09/19/19 15:27 O2 Saturation 89 % (92-99) Arterial Blood pH 7.49 (7.35-7.45) Arterial Blood pCO2 at Patient Temp 33 mmHg (35-46) Arterial Blood pO2 at Patient Temp 55 mmHg (65-108) Arterial Blood HCO3 25 mmol/L (21-28) Arterial Blood Base Excess 2 mmol/L (-3-3) FiO2 21 Brief Hospital Course Ms Holland is a 74-year-old female w/ PMHx Dementia, COPD, previous tobacco abuse, depression, hyperlipidemia, hypertension, anxiety who p/w a syncopal episode, lasted about 4 minutes. Also notes productive cough. Consulted Cardiology and Neurology. 09/16: BP dropped from 185 systolic to 98 systolic after amlodipine administration this morning and she symptomatically became more confused. Plan for echo this morning. Will stop BP meds. 09/17: BP 188 systolic, given lower amlodipine dose with good effect today. Holding aricept. D/w bedside. 09/18: BP has been holding in 130s systolic. Still on O2 with cough. No further syncopal episodes. Working with therapy currently. Still on O2, her BP has been stable. Still has cough. Orthostatics negative today. Pulm recommends outpatient f/u, nebs and steroid taper. ECHO The left ventricular systolic function is normal and the ejection fraction is within normal range. The Ejection Fraction is 60-65%. There is normal LV segmental wall motion. There is severe concentric left ventricular hypertrophy. Problem list: AECOPD - nebs, steroids Syncope - likely vasovagal and does have hx of this. Possibly cough induced. I have advised to stop donepezil as she has been on it more than 2 years and has now had multiple syncopal episodes without any other clear etiology Abnormal EKG - elevated BP, criteria for LVH? Alzheimers dementia HTN - will monitor, goal BP not met, however, her amlodipine was stopped a year ago 2/2 symptomatic hypotension. Home BP recordings consistently in the 110s systolic. Will compare home cuff to ours. HLD Plan: Will need home O2 based on ABG on room air 7.49/33/55 is hypoxic Needs Alzheimer association info Safer probably for home health as she may have mental decline if she had skilled placement, have spoken with in depth Greater than 30 minutes spent on d/c Discharge Information Condition at Discharge: Improved Follow Up: Weeks Disposition/Orders: D/C to Home w/ HH Scheduled Amlodipine Besylate (Amlodipine Besylate) 5 Mg Tablet, 5 MG PO DAILY for HTN for 30 Days, #30 Ref 2 Prescribed by: AZ KIMBALL MD on 09/19/19 1318 Cholecalciferol (Vitamin D3) (Vitamin D-3) 2,000 Unit Capsule, 1,000 UNIT PO HS, (Reported) Entered as Reported by: WILBERTO IGNACIO on 04/03/15 021 Last Action: Converted on 09/15/191718 by ARGENTINA PEÑALOZA RN Dextromethorphan Hbr/Quinidine (Nuedexta 20-10 Mg Capsule) 1 Each Capsule, 1 TAB PO DAILY for unknown, (Reported) Entered as Reported by: SAMUEL MCBRIDE RN on 03/21/19457 Last Action: Converted on 09/15/191718 by ARGENTINA PEÑALOZA RN Fluticasone Propionate (Flovent 250MCG Diskus) 250 Mcg Disk.w.dev, 1 PUFF INH BID, #1 Prescribed by: NELLIE LOPEZ on 12/07/15 0851 Last Action: Converted on 09/15/191718 by ARGENTINA PEÑALOZA RN Fluticasone Propionate (Fluticasone Propionate Nasal [place]) 16 Gm [place].susp, 2 SPRAYS NS DAILY for congestion, (Reported) Entered as Reported by: SAMUEL MCBRIDE RN on 03/21/19457 Last Action: Continued on 09/15/191718 by ARGENTINA PEÑALOZA RN Memantine Hcl (Namenda) 10 Mg Tablet, 1 TAB PO BID for memory, #60 Ref 5 Prescribed by: PAM LOPEZ MD on 03/21/191700 Last Action: Continued on 09/15/191718 by ARGENTINA PEÑALOZA RN [place]-3 Fatty Acids (Fish Oil) 300 Mg Capsule, 300 MG PO DAILY, (Reported) Entered as Reported by: WILBERTO IGNACIO on 04/03/15218 Last Action: Converted on 09/15/191718 by ARGENTINA PEÑALOZA RN Pravastatin Sodium (Pravastatin Sodium) 40 Mg Tablet, 1 TAB PO HS, #90 Ref 1 (Reported) Entered as Reported by: WILBERTO IGNACIO on 04/03/15218 Last Action: Converted on 09/15/191718 by ARGENTINA PEÑALOZA RN Prednisone (Prednisone) 20 Mg Tablet, 1 TAB PO DAILY for COPD for 5 Days, #5 Prescribed by: AZ KIMBALL MD on 09/19/191317 Scheduled PRN Hydralazine Hcl (Hydralazine Hcl) 25 Mg Tablet, 25 MG PO PRN TID PRN for HYPERTENSION for 30 Days, #30 Take if systolic blood pressure is >150mmHg after already taking amlodipine. Prescribed by: AZ KIMBALL MD on 09/19/191317 Ipratropium/Albuterol Sulfate (Duoneb 0.5-3(2.5) Mg/3 Ml) 3 Ml Ampul.neb, 3 ML NEB PRN TID PRN for SHORTNESS OF BREATH, (Reported) Entered as Reported by: WILBERTO IGNACIO on 04/03/15218 Last Action: Continued on 09/15/191718 by ARGENTINA PEÑALOZA RN Discontinued Medications Citalopram Hydrobromide (Citalopram Hbr) 10 Mg Tablet, 1 TAB PO DAILY, #30 Ref 3 (Reported) Entered as Reported by: WILBERTO IGNACIO on 04/03/15218 Last Action: Continued on 09/15/191718 by ARGENTINA PEÑALOZA RN Donepezil Hcl (Donepezil Hcl) 10 Mg Tablet, 2 TAB PO DAILY, #90 Ref 1 (Reported) Entered as Reported by: WILBERTO IGNACIO on 04/03/15218 Last Action: Continued on 09/15/191718 by ARGENTINA PEÑALOZA RN Doxycycline Hyclate (Doxycycline Hyclate) 100 Mg Capsule, 1 CAP PO BID, #20 Prescribed by: CUAUHTEMOC TIMMONS on 03/13/19 0612 AZ KIMBALL MD Sep 19, 2019 20:02
== END 2019-09-19 17:20 | disposition home or self-care (01) | DRG 73 ==
LOC: ER 13:29 → 2 SOUTH 14:00
PROVIDERS: ADMIT Internal Medicine; ATTEND Internal Medicine
DX: G90.8 Other disorders of autonomic nervous system (principal); G93.41 Metabolic encephalopathy; J44.1 Chronic obstructive pulmonary disease with (acute) exacerbation; E22.1 Hyperprolactinemia; F41.9 Anxiety disorder, unspecified; F32.9 Major depressive disorder, single episode, unspecified; F02.80 Dementia in other diseases classified elsewhere, unspecified severity, without behavioral disturbance, psychotic disturbance, mood disturbance, and anxiety; G30.9 Alzheimer's disease, unspecified; E78.00 Pure hypercholesterolemia, unspecified; I10 Essential (primary) hypertension; E78.5 Hyperlipidemia, unspecified; F17.201 Nicotine dependence, unspecified, in remission; Z88.0 Allergy status to penicillin; Z88.2 Allergy status to sulfonamides; Z88.8 Allergy status to other drugs, medicaments and biological substances; Z90.710 Acquired absence of both cervix and uterus; Z82.49 Family history of ischemic heart disease and other diseases of the circulatory system
CPT/HCPCS: 36415; 36600; 71045; 80053; 80061; 82805; 83605; 83880; 84146; 84484; 85025; 87040; 90471; 90686; 93306; 94640; 94760; 96374; J0360; J2920; J2930; J7030; J7620; J7626; 97116; 97530; 99285-25; G0378

== ENCOUNTER 2022-02-22 14:09 | Inpatient (IN) | payer MEDICARE ==
[~2022-02-22] VITALS: Ht 154.9 cm; Wt 59.3 kg
[~2022-02-22 14:09] MED LIST changes: +AMLO-186 PO; +AMLO-187 PO; -AMLO10TA8 PO; -AMLO5TAB10 PO; -CITA10TA4 PO; +CITA10TA5 PO; -DOXY100C2 PO; +DOXY100C3 PO; -FLUT250D INH; +FLUT250D2 INH; +GUAI12003 PO; +HYDR-2868 PO; +MEMA28CA16 PO; -MEMA28CA5 PO; +PRED20TA PO
[2022-02-22] MEDS ORDERED: ACETAMINOPHEN 650 MG SUPP.RECT. PR ONE (14:30)
[2022-02-22] MEDS ORDERED: IV RINGERS,LACTATED 500ML 500 ML IV ONE (14:30)
--- NOTE | 2022-02-22 14:33 | ED.ADGEN ---
Past Medical History Past Medical History: Anxiety, Bronchitis, COPD, Dementia, Depression, High Cholesterol, Hypertension, Other Additional Past Medical Histor: ALZHEIMERS, SYNCOPE Past Surgical History: Other Additional Past Surgical Histo: UNKNOWN Smoking Status: Never Smoker Alcohol Use: None Drug Use: None General Adult EDM: Chief Complaint: SHORTNESS OF BREATH HPI: HPI: Patient is a 76 year old female coming in via EMS from a [facility]. Patient has a history of dementia, and history provided by EMS. Patient has been having shortness of breath the past 2 to 3 days with a cough. Was started on 2 unknown antibiotics for presumed pneumonia, is only had 1 dose this morning. Is a temperature of 100.8. Per the facility she is at her baseline. No history of chronic lung disease. On their arrival she was satting 90% and placed on 2 L na alfredo cannula with improvement of oxygen saturations to 98 to 90%. Review of Systems: Review of Systems: All other systems within normal limits except for as noted in the HPI Current Medications: Current Medications Medications (Trade) Dose Ordered Sig/Wilmer Start Time Stop Time Status Last Admin Dose Admin Acetaminophen (Tylenol Supp) 650 mg 1X ONCE 02/22/22 14:30 02/22/22 14:31 DC 02/22/22 14:30 650 MG Albuterol/ Ipratropium (Duoneb) 3 ml 1X ONCE 02/22/22 14:45 02/22/22 14:46 DC 02/22/22 15:39 3 ML Ceftriaxone Sodium (Rocephin) 1 gm 1X ONCE 02/22/22 15:30 02/22/22 15:31 DC 02/22/22 15:30 1 GM Doxycycline Hyclate 100 mg/ Dextrose 100 ml @ 50 mls/hr 1X ONCE 02/22/22 15:30 02/22/22 17:29 DC 02/22/22 15:54 50 MLS/HR Ringer's Solution 500 ml @ 500 mls/hr 1X ONCE 02/22/22 14:30 02/22/22 15:29 DC 02/22/22 15:20 500 MLS/HR Allergies: Allergies: Allergies Coded Allergies Type Severity Reaction Last Updated Verified Sulfa (Sulfonamide Antibiotics) Allergy Intermediate 04/02/15 Yes clarithromycin Allergy Intermediate 04/02/15 Yes gatifloxacin Allergy Intermediate 04/02/15 Yes penicillin G Allergy Intermediate 04/02/15 Yes Physical Exam: PE: Constitutional: Well developed, well nourished, no acute distress, non-toxic appearance. [] HENT: Normocephalic, atraumatic, bilateral external ears normal, nose normal. [] Eyes: PERRLA, conjunctiva normal, no discharge. [] Neck: No rigidity, supple, no stridor. [] Cardiovascular: Regular rate and rhythm, brisk cap refill [] Lungs & Thorax: Labored breathing with accessory muscle use, symmetric chest expansion Abdomen: Soft, nondistended, no guarding palpate. Skin: Warm, dry, no erythema, no rash. [] Back: Unremarkable Extremities: No deformities, range of motion grossly intact, no lower extremity edema [] Neurologic: Alert , no focal deficits noted. [] Psychologic: Affect normal Current Patient Data: Labs: Laboratory Tests Test 02/22/22 12:35 02/22/22 14:28 White Blood Count 7.7 x10^3/uL (4.0-11.0) Red Blood Count 5.43 x10^6/uL (3.50-5.40) H Hemoglobin 14.3 g/dL (12.0-15.5) Hematocrit 43.9 % (36.0-47.0) Mean Corpuscular Volume 81 fL (79-100) Mean Corpuscular Hemoglobin 26 pg (25-35) Mean Corpuscular Hemoglobin Concent 33 g/dL (31-37) Red Cell Distribution Width 15.8 % (11.5-14.5) H Platelet Count 225 x10^3/uL (140-400) Neutrophils (%) (Auto) 51 % (31-73) Lymphocytes (%) (Auto) 36 % (24-48) Monocytes (%) (Auto) 11 % (0-9) H Eosinophils (%) (Auto) 1 % (0-3) Basophils (%) (Auto) 1 % (0-3) Neutrophils # (Auto) 3.9 x10^3/uL (1.8-7.7) Lymphocytes # (Auto) 2.8 x10^3/uL (1.0-4.8) Monocytes # (Auto) 0.8 x10^3/uL (0.0-1.1) Eosinophils # (Auto) 0.1 x10^3/uL (0.0-0.7) Basophils # (Auto) 0.1 x10^3/uL (0.0-0.2) Sodium Level 146 mmol/L (136-145) H Potassium Level 4.3 mmol/L (3.5-5.1) Chloride Level 108 mmol/L (98-107) H Carbon Dioxide Level 29 mmol/L (21-32) Anion Gap 9 (6-14) Blood Urea Nitrogen 19 mg/dL (7-20) Creatinine 1.2 mg/dL (0.6-1.0) H Estimated GFR (Cockcroft-Gault) 52.6 BUN/Creatinine Ratio 16 (6-20) Glucose Level 102 mg/dL (70-99) H Lactic Acid Level 2.2 mmol/L (0.4-2.0) H Calcium Level 9.0 mg/dL (8.5-10.1) Phosphorus Level 4.9 mg/dL (2.6-4.7) H Magnesium Level 2.2 mg/dL (1.8-2.4) Total Bilirubin 0.3 mg/dL (0.2-1.0) Aspartate Amino Transferase (AST) 40 U/L (15-37) H Alanine Aminotransferase (ALT) 32 U/L (14-59) Alkaline Phosphatase 117 U/L (46-116) H Troponin I High Sensitivity 24 ng/L (4-50) KM-Sfg-T-Type Natriuretic Peptide 360 pg/mL (0-449) Total Protein 7.6 g/dL (6.4-8.2) Albumin 3.3 g/dL (3.4-5.0) L Albumin/Globulin Ratio 0.8 (1.0-1.7) L Urine Collection Type U cath Urine Color (Auto) Yellow Urine Turbidity Turbid Urine pH (Auto) 5.0 (<5.0-8.0) Urine Specific [place] 1.022 (1.000-1.030) Urine Protein (Auto) Negative mg/dL (Negative) Urine Glucose (Auto)(UA) Negative mg/dL (Negative) Urine Ketones (Auto) Negative mg/dL (Negative) Urine Blood (Auto) Trace (Negative) Urine Nitrite Negative (Negative) Urine Bilirubin (Auto) Negative (Negative) Urine Urobilinogen (Auto) Normal mg/dL (Normal) Urine Leukocyte Esterase (Auto) Large (Negative) Urine RBC Occ /HPF (0-2) Urine WBC >40 /HPF (0-4) Urine Squamous Epithelial Cells Few /LPF Urine Bacteria Few /HPF (0-FEW) Urine Mucus Slight /LPF Laboratory Tests 02/22/22 12:35 Laboratory Tests 02/22/22 12:35 Vital Signs: Vital Signs Date Time Temp Pulse Resp B/P (MAP) Pulse Ox O2 Delivery O2 Flow Rate FiO2 02/22/22 15:39 93 Nasal Cannula 02/22/22 15:14 84 151/85 (107) 2.0 02/22/22 14:11 99.4 32 99.4 EKG: EKG: Sinus rhythm, heart rate 84 beats minute no STEMI [] Heart Score: C/O Chest Pain: N/A Risk Factors: Risk Factors: DM, Current or recent (<one month) smoker, HTN, HLP, family histo ry of CAD, obesity. Risk Scores: Score 0 - 3: 2.5% MACE over next 6 weeks - Discharge Home Score 4 - 6: 20.3% MACE over next 6 weeks - Admit for Clinical Observation Score 7 - 10: 72.7% MACE over next 6 weeks - Early Invasive Strategies Radiology/Procedures: Radiology/Procedures: [facility] [address] [place] [address] IMAGING REPORT Signed PATIENT: LETICIA MARTINI OACCOUNT: [id number] : 1945 LOCATION: ER AGE: 76 SEX: F EXAM STATUS: REG ER ORD. PHYSICIAN: MJ STEEL MD REASON: pneumonia- not ready @1431 PROCEDURE: CHEST AP ONLY XR CHEST 1V CLINICAL INDICATIONS: Cough. Pneumonia. Comparison: January 06, 2020. Findings: No acute lung infiltrate or pleural effusion or pulmonary edema or lung mass or pneumothorax is seen. The heart size, pulmonary vasculature, mediastinum and both timo are stable. IMPRESSION: No acute radiographic abnormality is seen. Electronically signed by: Deondre Varner MD (02/22/2022 3:27 PM) [id number] DICTATED and SIGNED BY: DEONDRE VARNER MD DATE: 02/22/22 1525 [] Course & Med Decision Making: Course & Med Decision Making Pertinent Labs and Imaging studies reviewed. (See chart for details) No pneumonia visible on chest x-ray but physical exam and history consistent with pneumonia, likely pneumonia is not presenting on chest x-ray due to hydration status. [] Dragon Disclaimer: Dragon Disclaimer: This electronic medical record was generated, in whole or in part, using a voice recognition dictation system. Departure Departure Impression: Primary Impression: Pneumonia Additional Impressions: UTI (urinary tract infection) Dementia Disposition: ADMITTED INPATIENT Admitting Physician: WILFREDO Condition: STABLE Referrals: Agustin LOPEZ MD (PCP) Problem Qualifiers MJ STEEL MD Feb 22, 2022 14:33
[2022-02-22] MEDS ORDERED: IPRATRPIUM/ALBUTEROL 0.5/2.5MG 3 ML NEBU. NEB ONE (14:45)
[2022-02-22 15:00] LABS: BASO # 0.1 x10^3/uL (0.0-0.2); BASO % 1 % (0-3); EOS # 0.1 x10^3/uL (0.0-0.7); EOS % 1 % (0-3); HEMATOCRIT 43.9 % (36.0-47.0); HEMOGLOBIN 14.3 g/dL (12.0-15.5); LYMPH # 2.8 x10^3/uL (1.0-4.8); LYMPH % 36 % (24-48); MEAN CORPUSCULAR HEMOGLOBIN 26 pg (25-35); MEAN CORPUSCULAR HGB CONC 33 g/dL (31-37); MEAN CORPUSCULAR VOLUME 81 fL (79-100); MONO # 0.8 x10^3/uL (0.0-1.1); MONO % 11 % (0-9); NEUT # 3.9 x10^3/uL (1.8-7.7); NEUT % 51 % (31-73); PLATELET COUNT 225 x10^3/uL (140-400); RED BLOOD COUNT 5.43 x10^6/uL (3.50-5.40); RED CELL DISTRIBUTION WIDTH 15.8 % (11.5-14.5); WHITE BLOOD COUNT 7.7 x10^3/uL (4.0-11.0)
[2022-02-22 15:06] LABS: BACTERIA,URINE FEW /HPF (0-FEW); RBC,URINE OCC /HPF (0-2); WBC,URINE >40 /HPF (0-4)
[2022-02-22 15:21] LABS: CREATININE 1.2 mg/dL (0.6-1.0); GFR 52.6; POTASSIUM 4.3 mmol/L (3.5-5.1)
--- NOTE | 2022-02-22 15:29 | RAD ---
XR CHEST 1V CLINICAL INDICATIONS: Cough. Pneumonia. Comparison: January 06, 2020. Findings: No acute lung infiltrate or pleural effusion or pulmonary edema or lung mass or pneumothora x is seen. The heart size, pulmonary vasculature, mediastinum and both timo are stable. IMPRESSION: No acute radiographic abnormality is seen. Electronically signed by: Jacoby Varner MD (02/22/2022 3:27 PM) [id number]
[2022-02-22] MEDS ORDERED: cefTRIAXone IV Push 1 GM VIAL. IVP ONE (15:30)
[2022-02-22] MEDS ORDERED: DOXYCYCLINE HYCLATE 100 MG in IV DEXTROSE 5% 100ML 100 ML IV ONE (15:30)
[2022-02-22 15:35] LABS: ALBUMIN 3.3 g/dL (3.4-5.0); ALBUMIN/GLOBULIN RATIO 0.8 (1.0-1.7); MAGNESIUM 2.2 mg/dL (1.8-2.4); PHOSPHORUS 4.9 mg/dL (2.6-4.7); TOTAL BILIRUBIN 0.3 mg/dL (0.2-1.0); TOTAL PROTEIN 7.6 g/dL (6.4-8.2)
[2022-02-22] MEDS ORDERED: ONDANSETRON PF 4 MG/2 ML VIAL. IVP PRN (16:15)
[2022-02-22] MEDS ORDERED: ACETAMINOPHEN 650 MG SUPP.RECT. PR PRN (16:15)
[2022-02-22] MEDS ORDERED: fentaNYL PF VIAL 100 MCG/2 ML VIAL IVP PRN (16:15)
[2022-02-22 17:56] VITALS: BP 147/103
[2022-02-22] MEDS: IV NORMAL SALINE 1000ML BAG 1,000 ML IV SCH (18:16)
[2022-02-22 19:00] VITALS: BP 119/86
--- NOTE | 2022-02-22 19:09 | HP ---
DATE OF SERVICE: 02/22/2022 ADMIT DATE: 02/22/2022 CHIEF COMPLAINT: Shortness of breath. HISTORY OF PRESENT ILLNESS: The patient is a pleasantly confused 76-year-old female who presented to the ER with her . He states they have been since 1967 and that she has a lot of memory problems. While in the ER, she seems to have a temperature of 100.8. She is also hypoxic, down to 88%. Chest x-ray surprisingly does not show much; however, clinically, she seems to have pneumonia. I discussed the case with the ER physician. We are going to admit the patient and give her IV antibiotics and beta agonist. PAST MEDICAL HISTORY: COPD, bronchitis, anxiety, dementia, depression, pneumonia, hypertension, hyperlipidemia, and Alzheimer's disease. ALLERGIES: SULFA, CLARITHROMYCIN, PENICILLIN. FAMILY HISTORY: Diabetes. SOCIAL HISTORY: She does not drink, smoke or take drugs. She lives at home with her . MEDICATIONS: Reviewed, please refer to the MRAD. REVIEW OF SYSTEMS: Unable to obtain. She is too confused. PHYSICAL EXAMINATION: VITALS: Within normal limits and are stable. GENERAL: No apparent distress. Alert and oriented. HEENT: Normal cephalic atraumatic, external auditory canals are patent EYES: Extraocular muscles are intact, pupils are equally round and reactive to light and accommodation MUSCULOSKELETAL: Well developed, well nourished, good range of motion ENDOCRINE: No thyromegaly was palpated LYMPHATICS: No cervical chain or axillary nodes were noted HEMATOPOIETIC: No bruising NECK: Supple, no JVD, no thyromegaly was noted. LUNGS: She has bibasilar crackles. HEART: RRR, S1, S2 present. Peripheral pulses intact, no obvious murmurs were noted. ABDOMEN: Soft, nontender. Positive bowel sounds no organomegaly, normal bowel sounds. EXTREMITIES: Without any cyanosis, clubbing, or edema. Pedal pulses intact, Homans sign is negative. NEUROLOGIC: Normal speech, normal tone. A and O x 3, moves all extremities, no obvious focal deficits. PSYCHIATRIC: Normal affect, normal mood. Stable. SKIN: No ulcerations or rashes, good skin turgor, no jaundice. VASCULAR: Good capillary refill, neurovascular bundle appears to be intact.. ASSESSMENT AND PLAN: Clinical pneumonia. The patient will be admitted. We will start IV antibiotics and DuoNebs. Home meds. Deep venous thrombosis prophylaxis. Full code. MARQUIS/RIKY DR: Justin TID: [id number]
--- NOTE | 2022-02-22 19:35 | NUR ---
Admission Note: the patient is a 76 year old female admitted due to pneumonia, dementia and UTI. She arrived on the unit via stretcher at 1740 awake, alert on 2 liters of oxygen with VSS. She's accompanied by her who told this nurse that patient is resident of [facility] in [facility]. The patient is wheelchair bound, non verbal and on pureed diet with total assist. She is incontinent both bladder and bowel. The patient was tested for COVID yesterday while in the facility but the result is not yet available. Discussed with the patient's current plan of care, he verbalized understanding. salesperson [employer] at the intermediate-DON: Omar Harrison [phone] Called [place] staff at 1934, informed to fax the patient's list of meds.
[2022-02-22] MEDS: IPRATRPIUM/ALBUTEROL 0.5/2.5MG 3 ML NEBU. NEB SCH (20:00)
[2022-02-22] MEDS: DOXYCYCLINE HYCLATE 100 MG in IV DEXTROSE 5% 100ML 100 ML IV SCH (21:24)
[2022-02-22 23:00] VITALS: BP 155/83
[2022-02-23 03:00] VITALS: BP 151/72
[2022-02-23] MEDS: IV NORMAL SALINE 1000ML BAG 1,000 ML IV SCH ×2 (05:25→16:55)
[2022-02-23 07:00] VITALS: BP 126/81
[2022-02-23] MEDS: IPRATRPIUM/ALBUTEROL 0.5/2.5MG 3 ML NEBU. NEB SCH ×4 (07:13→20:46)
[2022-02-23] MEDS: DOXYCYCLINE HYCLATE 100 MG in IV DEXTROSE 5% 100ML 100 ML IV SCH ×2 (08:11→22:33)
[2022-02-23 10:10] LABS: BASO % 1 % (0-3); EOS # 0.1 x10^3/uL (0.0-0.7); EOS % 2 % (0-3); HEMATOCRIT 38.6 % (36.0-47.0); HEMOGLOBIN 12.6 g/dL (12.0-15.5); LYMPH # 1.8 x10^3/uL (1.0-4.8); LYMPH % 41 % (24-48); MEAN CORPUSCULAR HEMOGLOBIN 27 pg (25-35); MEAN CORPUSCULAR HGB CONC 33 g/dL (31-37); MEAN CORPUSCULAR VOLUME 81 fL (79-100); MONO # 0.3 x10^3/uL (0.0-1.1); MONO % 7 % (0-9); NEUT # 2.1 x10^3/uL (1.8-7.7); NEUT % 49 % (31-73); PLATELET COUNT 170 x10^3/uL (140-400); RED BLOOD COUNT 4.74 x10^6/uL (3.50-5.40); RED CELL DISTRIBUTION WIDTH 15.7 % (11.5-14.5); WHITE BLOOD COUNT 4.3 x10^3/uL (4.0-11.0)
[2022-02-23 10:26] LABS: ALBUMIN 2.5 g/dL (3.4-5.0); ALBUMIN/GLOBULIN RATIO 0.6 (1.0-1.7); CALCIUM 8.6 mg/dL (8.5-10.1); CREATININE 0.9 mg/dL (0.6-1.0); GFR 73.3; POTASSIUM 3.9 mmol/L (3.5-5.1); TOTAL BILIRUBIN 0.3 mg/dL (0.2-1.0); TOTAL PROTEIN 6.5 g/dL (6.4-8.2)
[2022-02-23] MEDS: ENOXAPARIN 40 MG/0.4 ML SYRINGE. SQ SCH (12:51)
--- NOTE | 2022-02-23 14:17 | PDOC ---
[employer] PROGRESS NOTE Date of Service DOS: DATE: 02/23/22 TIME: 14:13 Chief Complaint Chief Complaint UTI sepsis acute hypoxic from sepsis, no pneumonia atelectasis on exam Dementia, discussed with , would be 7A on FAST scale, could qualify for hospice, but he is very happy with he facilty she is in, [facility], of [place], she gets excellent care. Vitals/I&O Vitals/I&O: Vital Signs Date Time Temp Pulse Resp B/P (MAP) Pulse Ox O2 Delivery O2 Flow Rate FiO2 02/23/22 11:03 95 Nasal Cannula 2.0 02/23/22 07:00 98.2 71 12 126/81 (96) 98.2 I & O 02/22/22 02/22/22 02/23/22 15:00 23:00 07:00 Intake Total 0 ml 0 ml Balance 0 ml 0 ml Physical Exam General: Cooperative, No acute distress, Other (non-sensical speech, none) Heart: No murmurs Lungs: Clear, Other Extremities: No cyanosis, No edema Skin: No rashes Labs Labs: Laboratory Tests Test 02/22/22 14:28 02/22/22 18:20 02/23/22 09:55 Urine Collection Type U cath Urine Color (Auto) Yellow Urine Turbidity Turbid Urine pH (Auto) 5.0 (<5.0-8.0) Urine Specific [place] 1.022 (1.000-1.030) Urine Protein (Auto) Negative mg/dL (Negative) Urine Glucose (Auto)(UA) Negative mg/dL (Negative) Urine Ketones (Auto) Negative mg/dL (Negative) Urine Blood (Auto) Trace (Negative) Urine Nitrite Negative (Negative) Urine Bilirubin (Auto) Negative (Negative) Urine Urobilinogen (Auto) Normal mg/dL (Normal) Urine Leukocyte Esterase (Auto) Large (Negative) Urine RBC Occ /HPF (0-2) Urine WBC >40 /HPF (0-4) Urine Squamous Epithelial Cells Few /LPF Urine Bacteria Few /HPF (0-FEW) Urine Mucus Slight /LPF Lactic Acid Level 1.0 mmol/L (0.4-2.0) White Blood Count 4.3 x10^3/uL (4.0-11.0) Red Blood Count 4.74 x10^6/uL (3.50-5.40) Hemoglobin 12.6 g/dL (12.0-15.5) Hematocrit 38.6 % (36.0-47.0) Mean Corpuscular Volume 81 fL (79-100) Mean Corpuscular Hemoglobin 27 pg (25-35) Mean Corpuscular Hemoglobin Concent 33 g/dL (31-37) Red Cell Distribution Width 15.7 % (11.5-14.5) Platelet Count 170 x10^3/uL (140-400) Neutrophils (%) (Auto) 49 % (31-73) Lymphocytes (%) (Auto) 41 % (24-48) Monocytes (%) (Auto) 7 % (0-9) Eosinophils (%) (Auto) 2 % (0-3) Basophils (%) (Auto) 1 % (0-3) Neutrophils # (Auto) 2.1 x10^3/uL (1.8-7.7) Lymphocytes # (Auto) 1.8 x10^3/uL (1.0-4.8) Monocytes # (Auto) 0.3 x10^3/uL (0.0-1.1) Eosinophils # (Auto) 0.1 x10^3/uL (0.0-0.7) Basophils # (Auto) 0.0 x10^3/uL (0.0-0.2) Sodium Level 142 mmol/L (136-145) Potassium Level 3.9 mmol/L (3.5-5.1) Chloride Level 108 mmol/L (98-107) Carbon Dioxide Level 30 mmol/L (21-32) Anion Gap 4 (6-14) Blood Urea Nitrogen 10 mg/dL (7-20) Creatinine 0.9 mg/dL (0.6-1.0) Estimated GFR (Cockcroft-Gault) 73.3 BUN/Creatinine Ratio 11 (6-20) Glucose Level 128 mg/dL (70-99) Calcium Level 8.6 mg/dL (8.5-10.1) Total Bilirubin 0.3 mg/dL (0.2-1.0) Aspartate Amino Transf (AST/SGOT) 28 U/L (15-37) Alanine Aminotransferase (ALT/SGPT) 19 U/L (14-59) Alkaline Phosphatase 87 U/L (46-116) Total Protein 6.5 g/dL (6.4-8.2) Albumin 2.5 g/dL (3.4-5.0) Albumin/Globulin Ratio 0.6 (1.0-1.7) Assessment and Plan Assessmemt and Plan Problems Medical Problems: (1) Dementia Status: Acute Comment Review of Relevant I have reviewed the following items phillip (where applicable) has been applied. Medications: Current Medications Medications (Trade) Dose Ordered Sig/Wilmer Route PRN Reason Start Time Stop Time Status Last Admin Dose Admin Acetaminophen (Tylenol Supp) 650 mg 1X ONCE [place] 02/22/22 14:30 02/22/22 14:31 DC 02/22/22 14:30 Ringer's Solution 500 ml @ 500 mls/hr 1X ONCE IV 02/22/22 14:30 02/22/22 15:29 DC 02/22/22 15:20 Albuterol/ Ipratropium (Duoneb) 3 ml 1X ONCE NEB 02/22/22 14:45 02/22/22 14:46 DC 02/22/22 15:39 Ceftriaxone Sodium (Rocephin) 1 gm 1X ONCE IVP 02/22/22 15:30 02/22/22 15:31 DC 02/22/22 15:30 Doxycycline Hyclate 100 mg/ Dextrose 100 ml @ 50 mls/hr 1X ONCE IV 02/22/22 15:30 02/22/22 17:29 DC 02/22/22 15:54 Sodium Chloride 1,000 ml @ 100 mls/hr Q10H IV 02/22/22 16:15 02/23/22 16:14 02/23/22 05:25 Doxycycline Hyclate 100 mg/ Dextrose 100 ml @ 50 mls/hr Q12HR IV 02/22/22 22:00 02/23/22 08:11 Albuterol/ Ipratropium (Duoneb) 3 ml RTQID NEB 02/22/22 20:00 02/23/22 11:03 Enoxaparin Sodium (Lovenox 40mg Syringe) 40 mg Q24H SQ 02/23/22 12:00 02/23/22 12:51 Justifications for Admission Other Justification LORENA HAWKINS MD Feb 23, 2022 14:17
[2022-02-23] MEDS ORDERED: BISA-42 PO (14:28)
[2022-02-23] MEDS ORDERED: SENN8.6T11 PO (14:28)
[2022-02-23] MEDS ORDERED: MIRT7.5T8 PO (14:28)
[2022-02-23] MEDS ORDERED: ACET325T21 PO (14:28)
[2022-02-23 15:00] VITALS: BP 146/53
[2022-02-23] MEDS: cefTRIAXone IV Push 1 GM VIAL. IVP SCH (16:51)
[2022-02-23 19:00] VITALS: BP 141/41
[2022-02-23] MEDS: LACTOBACILLUS RHAMNOSUS GG 1 CAPSULE. PO SCH (22:33)
[2022-02-23 22:49] VITALS: BP 144/48
[2022-02-24 02:45] VITALS: BP 135/71
[2022-02-24 07:00] VITALS: BP 126/65
[2022-02-24] MEDS: IPRATRPIUM/ALBUTEROL 0.5/2.5MG 3 ML NEBU. NEB SCH ×3 (07:44→15:17)
[2022-02-24] MEDS: LACTOBACILLUS RHAMNOSUS GG 1 CAPSULE. PO SCH (08:51)
[2022-02-24] MEDS: DOXYCYCLINE HYCLATE 100 MG in IV DEXTROSE 5% 100ML 100 ML IV SCH (08:52)
--- NOTE | 2022-02-24 10:57 | NUR ---
LEOPOLDO following. Discussed with RN. LEOPOLDO verified pt is from [facility] [place]/ memory care (ph: [phone], fax: [phone]). If pt needing SNF - they will need home health orders, and if pt is needing home oxygen then this needs to be arranged prior to discharge. Pt does not need a COVID test to return. RN notified. LEOPOLDO will continue to follow. Addendum: 02/24/22 at 1639 by MILLICENT MINA Transportation arranged for 1800 with [facility]. RN, family and AL facility notified. Home Health discharge orders and clinicals faxed to [facility].
[2022-02-24 11:00] VITALS: BP 132/96
[2022-02-24] MEDS: ENOXAPARIN 40 MG/0.4 ML SYRINGE. SQ SCH (12:00)
[2022-02-24] MEDS ORDERED: CEFD300C PO (13:37)
--- NOTE | 2022-02-24 13:38 | SNU/HH DC ---
DISCHARGE WITH HOME HEALTH DISCHARGE INFORMATION: Discharge Date: Feb 24, 2022 Final Diagnosis: Problems Medical Problems: (1) Dementia Status: Acute Condition on Discharge: Guarded CODE STATUS: Code Status: Full HOME HEALTH: Face to Face: I certify this patient is under my care and that I, or a nurse practitioner or physician's assistant plant control operator working with me, had a face to face encounter that meets the physician face to face encounter requirements with this patient on []. Medical Complications: COPD, Dementia, Falls Assisted For: Assess Cardiopulm Status, Assess & Educate Safety, Assess/Skilled Observatio, Medication Management RN For Eval/Treatment: Yes Physical Therapy For: Evalulation/Treatment Occupational Therapy For: Evaluation/Treatment Home Health Aide For: Self-care ADMINISTRATIVE OFFICER For: Community Resources Pt Meets Homebound Status: Poor coordination w/ amb., Extreme weakness w/ amb., Fatigue w/ amb., Frequent falls w/ injury, Limited distance walking, Unable to negotiate home POST DISCHARGE ORDERS: Activity Instructions for Disc: Activity as tolerated Weight Bearing Status after Di: As tolerated DIET AFTER DISCHARGE: Cardiac Wound/Incision Care: No wound care needed CHECKS AFTER DISCHARGE: Checks after discharge: Check blood press - daily FOLLOW-UP: Follow up with: Physician from home health services TREATMENT/EQUIPMENT ORDERS: Adaptive Equipment Issued: None Discharge Respiratory Equipmen: Oxygen CERTIFICATION STATEMENT: Certification Statement: Certification Statement: Based on the above finding, I certify that this patient is confined to the home and needs intermittent retirement care, physical therapy and/or speech therapy, or continues to need occupational therapy.~ This patient is under my care, and I have initiated the establishment of the plan of care.~ This patient will be followed by myself or a community physician who will periodically review the plan of care. Home Meds Active Scripts Memantine Hcl (NAMENDA) 10 Mg Tablet, 1 TAB PO BID for memory, #60 TAB 5 Refills Prov:Agustin LOPEZ MD 03/21/19 Reported Medications Acetaminophen (ACETAMINOPHEN) 325 Mg Tablet, 2 TAB PO PRN DAILY PRN for pain or fever for 30 Days, #30 TAB 0 Refills 02/23/22 Bisacodyl (DULCOLAX) 5 Mg Tablet.dr, 2 TAB PO UD for constipation for 1 Day, #2 TAB 0 Refills 02/23/22 Sennosides (SENNA LAXATIVE) 8.6 Mg Tablet, 1 TAB PO DAILY for constipation for 30 Days, #30 TAB 0 Refills 02/23/22 Mirtazapine (MIRTAZAPINE) 7.5 Mg Tablet, 1 TAB PO QHS for depression for 30 Days, #30 TAB 0 Refills 02/23/22 Ipratropium/Albuterol Sulfate (DUONEB 0.5-3(2.5) MG/3 ML) 3 Ml Ampul.neb, 3 ML NEB PRN TID PRN for SHORTNESS OF BREATH 04/03/15 Pravastatin Sodium (PRAVASTATIN SODIUM) 40 Mg Tablet, 1 TAB PO HS, #90 TAB 1 Refill 04/03/15 Discontinued Reported Medications Guaifenesin (MUCINEX) 1,200 Mg Tbmp.12hr, 1 TAB PO BID for cough for 15 Days, #30 TAB 0 Refills 10/04/19 Fluticasone Propionate (FLUTICASONE PROPIONATE NASAL SPRAY) 16 Gm [place].susp, 2 SPRAYS NS DAILY for congestion 03/21/19 Cholecalciferol (Vitamin D3) (VITAMIN D-3) 2,000 Unit Capsule, 1000 UNIT PO HS 04/03/15 ROSLYN BLANCHARD MD Feb 24, 2022 13:38
[2022-02-24 15:00] VITALS: BP 145/64
[2022-02-24] MEDS: cefTRIAXone IV Push 1 GM VIAL. IVP SCH (15:19)
--- NOTE | 2022-02-24 18:03 | NUR ---
REPORT CALLED TO SANGITA JUAREZ (NURSE AT [facility]), QUESTIONS AND CONCERNS ANSWERED, FAMILY AT THE BEDSIDE AT THIS TIME.
--- NOTE | 2022-02-24 18:39 | NUR ---
PATIENT LEAVES THE UNIT PER STRETCHER AND ACCOMPANIED BY 2 PARAMEDICS, FAMILY MEMBERS AT THE BEDSIDE, EMOTIONAL SUPPORT GIVEN, FOLLOW UP APPOINTMENTS ENCOURAGED.
--- NOTE | 2022-02-25 17:23 | PDOC3 ---
[facility]-Discharge Summary Date of Admission: Date of Admission: Feb 22, 2022 Date of Discharge: Date of Discharge: Feb 24, 2022 Discharge Diagnosis: Discharge Diagnosis: UTI sepsis acute hypoxic from sepsis, no pneumonia atelectasis on exam Dementia, discussed with , would be 7A on FAST scale, could qualify for hospice, but he is very happy with he facilty she is in, [facility], of [place], she gets excellent care. Hospital Course: Hospital Course: 76-year-old female who presented to the ER with her . He states they have been since 1967 and that she has a lot of memory problems. While in the ER, she seems to have a temperature of 100.8. She is also hypoxic, down to 88%. Chest x-ray surprisingly does not show much; however, clinically, she seems to have pneumonia. I discussed the case with the ER physician. We are going to admit the patient and give her IV antibiotics and beta agonist. By day of discharge, pt was clinically stable and ready for discharge. Urine Cx were negative of growth, She will return to [facility] care at [facility]. Rest of hospital course was uneventful Disposition: Disposition/Orders: D/C to Another Facility Activity: Activity: Resume previous activity Diet: Diet: Cardiac Medications: Home Meds Active Scripts Cefdinir (CEFDINIR) 300 Mg Capsule, 1 CAP PO BID for UTI for 5 Days, #10 CAP Prov:ROSLYN BLANCHARD MD 02/24/22 Memantine Hcl (NAMENDA) 10 Mg Tablet, 1 TAB PO BID for memory, #60 TAB 5 Refills Prov:Agustin LOPEZ MD 03/21/19 Reported Medications Acetaminophen (ACETAMINOPHEN) 325 Mg Tablet, 2 TAB PO PRN DAILY PRN for pain or fever for 30 Days, #30 TAB 0 Refills 02/23/22 Bisacodyl (DULCOLAX) 5 Mg Tablet.dr, 2 TAB PO UD for constipation for 1 Day, #2 TAB 0 Refills 02/23/22 Sennosides (SENNA LAXATIVE) 8.6 Mg Tablet, 1 TAB PO DAILY for constipation for 30 Days, #30 TAB 0 Refills 02/23/22 Mirtazapine (MIRTAZAPINE) 7.5 Mg Tablet, 1 TAB PO QHS for depression for 30 Days, #30 TAB 0 Refills 02/23/22 Ipratropium/Albuterol Sulfate (DUONEB 0.5-3(2.5) MG/3 ML) 3 Ml Ampul.neb, 3 ML NEB PRN TID PRN for SHORTNESS OF BREATH 04/03/15 Pravastatin Sodium (PRAVASTATIN SODIUM) 40 Mg Tablet, 1 TAB PO HS, #90 TAB 1 Refill 04/03/15 Discontinued Reported Medications Guaifenesin (MUCINEX) 1,200 Mg Tbmp.12hr, 1 TAB PO BID for cough for 15 Days, #30 TAB 0 Refills 10/04/19 Fluticasone Propionate (FLUTICASONE PROPIONATE NASAL SPRAY) 16 Gm [place].susp, 2 SPRAYS NS DAILY for congestion 03/21/19 Cholecalciferol (Vitamin D3) (VITAMIN D-3) 2,000 Unit Capsule, 1000 UNIT PO HS 04/03/15 Scheduled Bisacodyl (Dulcolax), 2 TAB PO UD, (Reported) Cefdinir (Cefdinir), 1 CAP PO BID Memantine Hcl (Namenda), 1 TAB PO BID Mirtazapine (Mirtazapine), 1 TAB PO QHS, (Reported) Pravastatin Sodium (Pravastatin Sodium), 1 TAB PO HS, (Reported) Sennosides (Senna Laxative), 1 TAB PO DAILY, (Reported) Scheduled PRN Acetaminophen (Acetaminophen), 2 TAB PO PRN DAILY PRN for pain or fever, (Reported) Ipratropium/Albuterol Sulfate (Duoneb 0.5-3(2.5) Mg/3 Ml), 3 ML NEB PRN TID PRN for SHORTNESS OF BREATH, (Reported) Discontinued Medications Cholecalciferol (Vitamin D3) (Vitamin D-3), 1,000 UNIT PO HS, (Reported) Fluticasone Propionate (Fluticasone Propionate Nasal [place]), 2 SPRAYS NS DAILY, (Reported) Guaifenesin (Mucinex), 1 TAB PO BID, (Reported) Total Time: Total Time: Total time spent was minutes in preparing scripts and discharge planning with SW and RN. Patient seen and examined on day of Discharge. Justicifation of Admission Dx: Justifications for Admission: Justification of Admission Dx: Yes Altered Mental Status: Altered Mental Status ROSLYN BLANCHARD MD Feb 25, 2022 17:23
--- NOTE | 2022-02-27 08:45 | EKG ---
[facility] [address] [place] [id number] Test Date: 2022-02-22 Test Time: 14:10:19 Pat Name: LETICIA MARTINI Department: Room: 538 Gender: F Risk Management Consultant: : [id number] Requested By: MJ STEEL Order Number: [id number] Reading MD: Juan F Martinez Measurements Intervals [place] Rate: 84 P: [place]: QRS: -3 QRSD: 78 T: 38 QT: 392 QTc: 467 Interpretive Statements SINUS RHYTHM Electronically Signed On 02-28-2022 14:09:58 CDT by Juan F Martinez
== END 2022-02-24 18:39 | disposition home or self-care (01) | DRG 871 ==
LOC: ER 14:09 → 5 NORTH 16:00
PROVIDERS: ADMIT Internal Medicine; ATTEND Internal Medicine
DX: A41.9 Sepsis, unspecified organism (principal); J96.01 Acute respiratory failure with hypoxia; N39.0 Urinary tract infection, site not specified; J98.11 Atelectasis; J44.0 Chronic obstructive pulmonary disease with (acute) lower respiratory infection; R09.02 Hypoxemia; E78.00 Pure hypercholesterolemia, unspecified; E78.5 Hyperlipidemia, unspecified; F02.80 Dementia in other diseases classified elsewhere, unspecified severity, without behavioral disturbance, psychotic disturbance, mood disturbance, and anxiety; G30.9 Alzheimer's disease, unspecified; I10 Essential (primary) hypertension; Z83.3 Family history of diabetes mellitus; F32.A Depression, unspecified; F41.9 Anxiety disorder, unspecified; Z88.1 Allergy status to other antibiotic agents; Z88.0 Allergy status to penicillin; Z88.2 Allergy status to sulfonamides; Z88.8 Allergy status to other drugs, medicaments and biological substances
CPT/HCPCS: 36415; 71045; 80053; 81001; 83605; 83735; 83880; 84100; 84484; 85025; 87040; 87086; 93005; 94640; 94760; 96365; 96366; 96375; J0696; J1650; J3490; J7030; J7060; J7120; 97530-GO; 97530-GP; 99285-25; G0378